=== PATIENT | female | born 1965 | race Caucasian/White ===

== ENCOUNTER 2019-03-19 07:28 | Outpatient (RCR) | payer MEDICARE, MEDICAID, SELFPAY | END 2019-04-14 00:01 | LOC: SPT 07:28 | PROVIDERS: Family Provider Internal Medicine; Visit Provider Neurological Surgery | DX: Z98.1 Arthrodesis status (principal); M54.2 Cervicalgia | CPT/HCPCS: 97110; 97161; 97530 ==

== ENCOUNTER 2019-06-24 07:14 | Inpatient (IN) | payer MEDICARE, MEDICAID, SELFPAY ==
[2019-06-24] VITALS (15 sets, daily range): BP systolic 110–159; BP diastolic 63–101; PULSE 78–107; RESP 15–19; TEMP 36.7–36.9; O2SAT 93–98; BMI 36.8
--- NOTE | 2019-06-24 07:32 | CT_ITS ---
WS: [id number] CT ABDOMEN PELVIS TECHNIQUE: Contrast-enhanced CT of the abdomen and pelvis with coronal and sagittal reformatted image s. CLINICAL INFORMATION: RUQ pain, hx of SBO multiple COMPARISON: January 14, 2015 DLP: 1975.[address] scans at [facility] use at least one of these dose optimization techniques: automat ed exposure control; mA and/or kV adjustment per patient size (includes targeted exams where dose is matched to clinical indication); or iterative reconstruction. FINDINGS: Prior appendectomy and hysterectomy. Prior postoperative changes at the GE junction. Surgical clips i n the left upper abdomen. Mild diffuse fatty infiltration liver. Cholelithiasis. Normal pancreas. Adr enal glands are normal. Normal spleen. Splenic granulomas. Lung bases are well aerated. Normal renal parenchymal enhancement. No hydronephrosis. Right renal parenchymal calculus measuring 15 mm. No obst ructing renal parenchymal or ureteral calculi. Postoperative changes of the sigmoid colon. No abdominal lymphadenopathy. Normal caliber abdominal aorta. Dilated loops of small bowel in the midabdomen with air-fluid levels. Small bowel measures up to 2.5 CM. The terminal ileum appears decompressed. Findings consistent with partial small bowel obstruction . Proximal small bowel is normal in appearance. CT/CT abdomen pelvis w con* [id number] IMPRESSION: 1. Air-fluid levels in the mid small bowel consistent with partial small bowel obstruction. Small bowel loops measure 2.5 cm in maximum dimension. 2. Terminal ileum appears decompressed. Proximal small bowel is decompressed. Persistent air within the colon. 3. Multiple prior abdominal surgeries including GE junction, mid small bowel i n the midabdomen, and prior sigmoid anastomosis. 4. Prior hysterectomy and appendectomy. 5. Nonobstructing right renal parenchymal calculus measuring 16 mm. 6. Diffuse fatty infiltration liver. 7. Cholelithiasis with tiny gallstones
--- NOTE | 2019-06-24 07:34 | W.ED.GENADLT ---
Documented by User: ANDIE Lynn 06/24/19 08:18 HPI - General Adult General: Chief complaint: Abdominal Pain Stated complaint: Abd pain Time Seen by Provider: 06/24/19 07:22 History of Present Illness: HPI narrative: Patient complains of severe abdominal pain especially to the right upper quadrant area for 2 days worse since yesterday afternoon. Has had nausea and vomiting since then. Has a history of small bowel obstructions no calculi has an ileo-anal ostomy. with repeat dilations, 82% stomach gone with gastric sleeve, has had hysteretomy. Patient is diabetic. MD complaint: Abdominal pain Onset (ago): day(s) (2) Location: abdomen Radiation: non-radiation Severity: severe and similar to prior episodes Severity scale (1-10): 9 Quality: sharp Pain Consistency: intermittent and colicky Relieving factors: medication Exacerbating factors: eating Associated symptoms: Reports nausea and vomiting; Deny chest pain, dyspnea, headache(s) or rash Treatments prior to arrival: other (Tried medication and vomited it up) Review of Systems Narrative: History of multiple surgeries gastric bypass fractures renal stones still has gallbladder Const: Denies: chills or body aches Eyes: Denies: change in vision or blurry vision ENMT: Denies: throat pain or nasal congestion Card: Denies: chest pain or shortness of breath on exertion Resp: Denies: shortness of breath, productive cough or non-productive cough GI: Reports: abdominal pain, nausea, vomiting and cramping Musc: Denies: extremity pain Skin/Breast: Denies: rash Neuro: Denies: headache Psych: Denies: anxiety or depression Celestino/Lymph: Denies: easy bruising PFSH ED PFSH: Social History Smoking and tobacco status: never smoked Physical Exam Const: COMMON NORMALS: no apparent distress, average body habitus and oriented x3 HENMT: COMMON NORMALS: normocephalic HEAD & SCALP: normal to inspection and normocephalic FACE & SINUS: normal facial exam Eye: COMMON NORMALS: conjunctivae normal GENERAL EYE: normal appearance of both eyes CONJUNCTIVA: Yes conjunctivae normal Neck/C-Spine: COMMON NORMALS: no JVD Chest: COMMONS NORMALS: inspection of chest normal Resp: COMMON NORMALS: normal respiratory effort and clear to auscultation bilaterally AUSCULTATION: clear to auscultation bilaterally Cardio: COMMON NORMALS: no JVD, regular rate and regular rhythm RATE: regular rate RHYTHM: regular rhythm GI: COMMON NORMALS: normal to inspection, nondistended, normoactive bowel sounds and no hepatosplenomegaly INSPECTION: Yes normal to inspection AUSCULTATION: Yes hypoactive bowel sounds PALPATION: Yes tender Details: RUQ and Yes no hepatosplenomegaly RECTAL EXAM: deferred Extremity: COMMON NORMALS: normal to inspection and full ROM Neuro: COMMON NORMALS: oriented x3 Course Vital Signs: Vital signs: Vital Signs Temperature 98.4 F 06/24/19 07:19 Pulse Rate 107 H 06/24/19 07:19 Respiratory Rate 16 06/24/19 13:42 Blood Pressure 159/101 06/24/19 07:19 Pulse Oximetry 93 06/24/19 13:42 MDM - General Adult Lab Data: Labs: Lab Results 06/24/19 06/24/19 06/24/19 Range/Units 07:30 07:30 07:30 WBC 11.4 H (4.0-10.0) 10^3/ uL RBC 4.32 (4.1-5.3) 10^6/u L Hgb 12.8 (11.5-15.3) g/dL Hct 39.1 (37.0-47.0) % MCV 90.5 (81-99) fL MCH 29.6 (28.0-34.0) pg MCHC 32.7 (30.0-36.0) g/dL RDW 13.0 (12.1-15.1) % Plt Count 393 (130-400) 10^3/c mm MPV 10.3 (7.4-10.4) fL Neut % (Auto) 70.7 % Lymph % (Auto) 22.4 % [place] % (Auto) 5.2 % Eos % (Auto) 1.0 % Baso % (Auto) 0.5 % Neut # (Auto) 8.0 H (1.8-7.7) 10^3/u L Lymph # (Auto) 2.6 (0.8-4.8) 10^3/u L [place] # (Auto) 0.6 (0.2-0.9) 10^3/u L Eos # (Auto) 0.1 (0.0-0.8) 10^3/u L Baso # (Auto) 0.1 (0.0-0.1) 10^3/u L Nucleated RBC % (a uto) 0 % Nucleated RBCs # 0.0 /100WBC Sodium 137 (136-145) mmol/L Potassium 4.2 (3.5-5.1) mmol/L Chloride 98 (98-107) mmol/L Carbon Dioxide 23 (22-29) mmol/L Anion Gap 20.2 H (5-19) BUN 13 (6-20) mg/dL Creatinine 0.9 (0.5-0.9) mg/dL GFR Calculation 65.8 L (90-130) mL/min Glucose 291 H (65-115) mg/dL Calculated Osmolal ity 291 (285-295) mOsm/k g Lactate (0.5-2.2) mmol/L Calcium 10.1 (8.5-10.5) mg/dL Total Bilirubin 1.1 (0.15-1.2) mg/dL AST 21 (0-32) U/L ALT 17 (0-33) U/L Alkaline Phosphata se 74 (35-105) IU/L Total Protein 8.6 (6.6-8.7) g/dL Albumin 4.3 (3.5-5.2) g/dL Globulin 4.3 (1.3-4.6) g/dL Lipase 22 (13-60) U/L Urine Color Yellow (Yellow) Urine Appearance Sl hazy (CLEAR) Urine pH 5.0 (5-7) Ur Specific Gravit y 1.025 (1.005-1.030) Urine Protein 2+ H (Negative) Urine Glucose (UA) 2+ (Normal) Urine Ketones 1+ H (Negative) Urine Blood Neg (Negative) Urine Nitrate Negative (Negative) Urine Bilirubin Neg (NEGATIVE) Urine Urobilinogen Norm (Negative) mg/dL Ur Leukocyte Shannon ase Negative (Negative) Urine RBC None (0-2) /hpf Urine WBC Rare (0-5) /hpf Ur Squamous Epith Cells 15-25 H (0-5) Amorphous Sediment 2+ Urine Bacteria 2+ H (NONE) Urine Mucus 1+ 03/20 Range/Units 07:40 WBC (4.0-10.0) 10^3/ uL RBC (4.1-5.3) 10^6/u L Hgb (11.5-15.3) g/dL Hct (37.0-47.0) % MCV (81-99) fL MCH (28.0-34.0) pg MCHC (30.0-36.0) g/dL RDW (12.1-15.1) % Plt Count (130-400) 10^3/c mm MPV (7.4-10.4) fL Neut % (Auto) % Lymph % (Auto) % [place] % (Auto) % Eos % (Auto) % Baso % (Auto) % Neut # (Auto) (1.8-7.7) 10^3/u L Lymph # (Auto) (0.8-4.8) 10^3/u L [place] # (Auto) (0.2-0.9) 10^3/u L Eos # (Auto) (0.0-0.8) 10^3/u L Baso # (Auto) (0.0-0.1) 10^3/u L Nucleated RBC % (a uto) % Nucleated RBCs # /100WBC Sodium (136-145) mmol/L Potassium (3.5-5.1) mmol/L Chloride (98-107) mmol/L Carbon Dioxide (22-29) mmol/L Anion Gap (5-19) BUN (6-20) mg/dL Creatinine (0.5-0.9) mg/dL GFR Calculation (90-130) mL/min Glucose (65-115) mg/dL Calculated Osmolal ity (285-295) mOsm/k g Lactate 3.0 H (0.5-2.2) mmol/L Calcium (8.5-10.5) mg/dL Total Bilirubin (0.15-1.2) mg/dL AST (0-32) U/L ALT (0-33) U/L Alkaline Phosphata se (35-105) IU/L Total Protein (6.6-8.7) g/dL Albumin (3.5-5.2) g/dL Globulin (1.3-4.6) g/dL Lipase (13-60) U/L Urine Color (Yellow) Urine Appearance (CLEAR) Urine pH (5-7) Ur Specific Gravit y (1.005-1.030) Urine Protein (Negative) Urine Glucose (UA) (Normal) Urine Ketones (Negative) Urine Blood (Negative) Urine Nitrate (Negative) Urine Bilirubin (NEGATIVE) Urine Urobilinogen (Negative) mg/dL Ur Leukocyte Shannon ase (Negative) Urine RBC (0-2) /hpf Urine WBC (0-5) /hpf Ur Squamous Epith Cells (0-5) Amorphous Sediment Urine Bacteria (NONE) Urine Mucus Discharge Plan Discharge Patient Disposition: Admitted As Inpatient Clinical Impression: Small bowel obstruction Condition: Stable Sign Out Sign Out Data: Patient Sign Out occurred on 06/24/19 at 11:11. Patient's care was discussed, and care was transferred from to Mariah Tirado MD. Coding Level of Care Code ED Administration Assistant for Chg Fwd Exam Comprehensive Documented by User: Mariah Tirado MD 06/24/19 14:18 HPI - General Adult General: Chief complaint: Abdominal Pain Stated complaint: Abd pain Time Seen by Provider: 06/24/19 07:22 [facility] ED PFSH: Social History Smoking and tobacco status: never smoked Course Vital Signs: Vital signs: Vital Signs Temperature 98.4 F 06/24/19 07:19 Pulse Rate 107 H 06/24/19 07:19 Respiratory Rate 16 06/24/19 13:42 Blood Pressure 159/101 06/24/19 07:19 Pulse Oximetry 93 06/24/19 13:42 MDM - General Adult MDM Narrative: Medical decision making narrative: 1109 Dr. Reddy contacted she will be down to the ER shortly, she is with the patient in the ICU currently. Will discuss with her when she arrives. Patient confirmed to me that she wanted to be admitted here. She has not been admitted since 2014 and that was here to the hospitalist service. Lab Data: Attestation: I reviewed the patient's lab results. Labs: Lab Results 03/11/20 03/11/20 03/11/20 Range/Units 07:30 07:30 07:30 WBC 11.4 H (4.0-10.0) 10^3/ uL RBC 4.32 (4.1-5.3) 10^6/u L Hgb 12.8 (11.5-15.3) g/dL Hct 39.1 (37.0-47.0) % MCV 90.5 (81-99) fL MCH 29.6 (28.0-34.0) pg MCHC 32.7 (30.0-36.0) g/dL RDW 13.0 (12.1-15.1) % Plt Count 393 (130-400) 10^3/c mm MPV 10.3 (7.4-10.4) fL Neut % (Auto) 70.7 % Lymph % (Auto) 22.4 % [place] % (Auto) 5.2 % Eos % (Auto) 1.0 % Baso % (Auto) 0.5 % Neut # (Auto) 8.0 H (1.8-7.7) 10^3/u L Lymph # (Auto) 2.6 (0.8-4.8) 10^3/u L [place] # (Auto) 0.6 (0.2-0.9) 10^3/u L Eos # (Auto) 0.1 (0.0-0.8) 10^3/u L Baso # (Auto) 0.1 (0.0-0.1) 10^3/u L Nucleated RBC % (a uto) 0 % Nucleated RBCs # 0.0 /100WBC Sodium 137 (136-145) mmol/L Potassium 4.2 (3.5-5.1) mmol/L Chloride 98 (98-107) mmol/L Carbon Dioxide 23 (22-29) mmol/L Anion Gap 20.2 H (5-19) BUN 13 (6-20) mg/dL Creatinine 0.9 (0.5-0.9) mg/dL GFR Calculation 65.8 L (90-130) mL/min Glucose 291 H (65-115) mg/dL Calculated Osmolal ity 291 (285-295) mOsm/k g Lactate (0.5-2.2) mmol/L Calcium 10.1 (8.5-10.5) mg/dL Total Bilirubin 1.1 (0.15-1.2) mg/dL AST 21 (0-32) U/L ALT 17 (0-33) U/L Alkaline Phosphata se 74 (35-105) IU/L Total Protein 8.6 (6.6-8.7) g/dL Albumin 4.3 (3.5-5.2) g/dL Globulin 4.3 (1.3-4.6) g/dL Lipase 22 (13-60) U/L Urine Color Yellow (Yellow) Urine Appearance Sl hazy (CLEAR) Urine pH 5.0 (5-7) Ur Specific Gravit y 1.025 (1.005-1.030) Urine Protein 2+ H (Negative) Urine Glucose (UA) 2+ (Normal) Urine Ketones 1+ H (Negative) Urine Blood Neg (Negative) Urine Nitrate Negative (Negative) Urine Bilirubin Neg (NEGATIVE) Urine Urobilinogen Norm (Negative) mg/dL Ur Leukocyte Shannon ase Negative (Negative) Urine RBC None (0-2) /hpf Urine WBC Rare (0-5) /hpf Ur Squamous Epith Cells 15-25 H (0-5) Amorphous Sediment 2+ Urine Bacteria 2+ H (NONE) Urine Mucus 1+ /03/04 Range/Units 07:40 WBC (4.0-10.0) 10^3/ uL RBC (4.1-5.3) 10^6/u L Hgb (11.5-15.3) g/dL Hct (37.0-47.0) % MCV (81-99) fL MCH (28.0-34.0) pg MCHC (30.0-36.0) g/dL RDW (12.1-15.1) % Plt Count (130-400) 10^3/c mm MPV (7.4-10.4) fL Neut % (Auto) % Lymph % (Auto) % [place] % (Auto) % Eos % (Auto) % Baso % (Auto) % Neut # (Auto) (1.8-7.7) 10^3/u L Lymph # (Auto) (0.8-4.8) 10^3/u L [place] # (Auto) (0.2-0.9) 10^3/u L Eos # (Auto) (0.0-0.8) 10^3/u L Baso # (Auto) (0.0-0.1) 10^3/u L Nucleated RBC % (a uto) % Nucleated RBCs # /100WBC Sodium (136-145) mmol/L Potassium (3.5-5.1) mmol/L Chloride (98-107) mmol/L Carbon Dioxide (22-29) mmol/L Anion Gap (5-19) BUN (6-20) mg/dL Creatinine (0.5-0.9) mg/dL GFR Calculation (90-130) mL/min Glucose (65-115) mg/dL Calculated Osmolal ity (285-295) mOsm/k g Lactate 3.0 H (0.5-2.2) mmol/L Calcium (8.5-10.5) mg/dL Total Bilirubin (0.15-1.2) mg/dL AST (0-32) U/L ALT (0-33) U/L Alkaline Phosphata se (35-105) IU/L Total Protein (6.6-8.7) g/dL Albumin (3.5-5.2) g/dL Globulin (1.3-4.6) g/dL Lipase (13-60) U/L Urine Color (Yellow) Urine Appearance (CLEAR) Urine pH (5-7) Ur Specific Gravit y (1.005-1.030) Urine Protein (Negative) Urine Glucose (UA) (Normal) Urine Ketones (Negative) Urine Blood (Negative) Urine Nitrate (Negative) Urine Bilirubin (NEGATIVE) Urine Urobilinogen (Negative) mg/dL Ur Leukocyte Shannon ase (Negative) Urine RBC (0-2) /hpf Urine WBC (0-5) /hpf Ur Squamous Epith Cells (0-5) Amorphous Sediment Urine Bacteria (NONE) Urine Mucus Discharge Plan Discharge Patient Disposition: Admitted As Inpatient Clinical Impression: Small bowel obstruction Condition: Stable Sign Out Sign Out Data: Patient Sign Out occurred on 06/24/19 at 11:11. Patient's care was discussed, and care was transferred from to Mariah Tirado MD. Coding Level of Care Code ED Administration Assistant for [facility] Fwd Exam Comprehensive
[2019-06-24] MEDS: morphine 4 mg/mL SDV 1 mL IVP (07:40)
[2019-06-24] MEDS: ondansetron 2 mg/ML SDV 2 mL 8 MG IVP (07:40)
[2019-06-24] MEDS: sodium chloride 0.9% 1,000 ML 999 ML IV (07:41)
[2019-06-24 07:46] LABS: Basophils # 0.1 10^3/uL (0.0-0.1); Basophils % 0.5 %; Eosinophils # 0.1 10^3/uL (0.0-0.8); Hematocrit 39.1 % (37.0-47.0); Hemoglobin 12.8 g/dL (11.5-15.3); Lymphocytes # 2.6 10^3/uL (0.8-4.8); Lymphocytes % 22.4 %; Mean Corpuscular HGB Conc 32.7 g/dL (30.0-36.0); Mean Corpuscular Hemoglobin 29.6 pg (28.0-34.0); Mean Corpuscular Volume 90.5 fL (81-99); Mean Platelet Volume 10.3 fL (7.4-10.4); Monocytes # 0.6 10^3/uL (0.2-0.9); Monocytes % 5.2 %; Neutrophils % 70.7 %; Nucleated Red Blood Cells % 0 %; Platelet Count 393 10^3/cmm (130-400); Red Blood Count 4.32 10^6/uL (4.1-5.3); White Blood Count 11.4 10^3/uL (4.0-10.0)
[2019-06-24 07:50] LABS: Add Urine Microscopic? YES; Bilirubin Urine Neg (NEGATIVE); Blood Urine Neg (Negative); Glucose Urine UA 2+ (Normal); Ketones Urine 1+ (Negative); Leukocyte Esterase Urine Negative (Negative); Nitrate Urine Negative (Negative); Protein Urine 2+ (Negative); Specific Gravity, Urine 1.025 (1.005-1.030); Urine Appearance SL Hazy (CLEAR); Urine Color Yellow (Yellow); Urobilinogen Urine Norm (Negative)
[2019-06-24 08:01] LABS: Albumin Level 4.3 g/dL (3.5-5.2); Alkaline Phosphatase 74 IU/L (35-105); Anion Gap 20.2 (5-19); Aspartate Amino Transferase 21 U/L (0-32); Blood Urea Nitrogen 13 mg/dL (6-20); Calcium 10.1 mg/dL (8.5-10.5); Carbon Dioxide 23 mmol/L (22-29); Chloride 98 mmol/L (98-107); Globulin 4.3 g/dL (1.3-4.6); Glomerular Filtration Rate 65.8 mL/min (90-130); Glucose 291 mg/dL (65-115); Lipase 22 U/L (13-60); Osmolality Calculated 291 mOsm/kg (285-295); Potassium 4.2 mmol/L (3.5-5.1); Sodium 137 mmol/L (136-145); Total Bilirubin 1.1 mg/dL (0.15-1.2); Total Protein 8.6 g/dL (6.6-8.7)
[2019-06-24 08:12] LABS: Mucus Urine 1+; Squamous Epithelial Cell Urine 15-25 (0-5); WBC Urine RARE /hpf (0-5)
[2019-06-24 08:13] LABS: Add Urine Culture? No; Alanine Aminotransferase 17 U/L (0-33); Amorphous Sediment Urine 2+; Bacteria Urine 2+
[2019-06-24] MEDS: HYDROmorphone 1 mg/mL INJ 1 mL 0.5 MG IVP ×3 (08:21→20:48)
[2019-06-24] MEDS: iohexol 300 mg/mL 100 mL Btl IV (08:54)
[2019-06-24] MEDS: HYDROmorphone 1 mg/mL INJ 1 mL IVP (12:29)
[2019-06-24] MEDS: morphine 4 mg/mL SDV 1 mL 2 MG IVP ×2 (15:14→18:21)
--- NOTE | 2019-06-24 16:13 | PM.CONSULT ---
Providers/Reason For Consult Consulting Physican/Specialty*: Chemo Lindquist MD General surgery Reason for Consult*: Partial small bowel obstruction Attending Physician: Mildred Reddy DO Primary Care Provider: Linda Castro MD History of Present Illness History of Present Illness Marie Damon is a 54 year old female with extensive surgical history including sleeve gastrectomy for history of gastroparesis and history of ulcerative colitis that required total colectomy with ileoanal anastomosis in the form of ileal pouch that was recently dilated at [facility] about couple of weeks ago for a stricture also patient reports that she had some sort of pelvic reconstruction surgery, patient comes to the emergency department with worsening abdominal pain mostly on the right side of the abdomen and she believes that she has repetitively recurrent partial small bowel obstruction that usually responds with conservative management and sometimes even she does not come to the hospital for that, but this time she seems to be having worsening symptoms and she did have nausea and vomiting and last time she had passed a little gas early this afternoon, usually patient does have 10-12 bowel movement due to the nature of her new surgical anatomy. CT scan findings 1. Air-fluid levels in the mid small bowel consistent with partial small bowel obstruction. Small bowel loops measure 2.5 cm in maximum dimension. 2. Terminal ileum appears decompressed. Proximal small bowel is decompressed. Persistent air within the colon. 3. Multiple prior abdominal surgeries including GE junction, mid small bowel in the midabdomen, and prior sigmoid anastomosis. 4. Prior hysterectomy and appendectomy. 5. Nonobstructing right renal parenchymal calculus measuring 16 mm. 6. Diffuse fatty infiltration liver. 7. Cholelithiasis with tiny gallstones Apparently the patient did refuse NG tube placement by the hospitalist service and she is refusing to have any potential surgical intervention if it gets to this point in the hospital here and she would prefer to be transferred to her operating surgeon in [place] yet she elected to be admitted for conservative measures if that would help her. General surgery was consulted for further evaluation Review of Systems Const: Denies: fever, chills, body aches or malaise Card: Denies: chest pain Resp: Denies: shortness of breath GI: Reports: abdominal pain, nausea and vomiting; Denies: difficulty swallowing, diarrhea, constipation or blood in stool Neuro: Denies: headache Psych: Denies: anxiety or depression Meds/Allergies Home Medications and Allergies Home Medications Medication Instructions Recorded Confirmed Type Bifidobacterium infantis [Align] 10.5 mg PO BEDTIME 06/24/19 06/24/19 History albuterol sulfate [Ventolin HFA] 2 inh INHALATION BID PRN 06/24/19 06/24/19 History allopurinol 300 mg PO DAILY 06/24/19 06/24/19 History atorvastatin 20 mg PO DAILY 06/24/19 06/24/19 History biotin 1,000 mcg PO DAILY 06/24/19 06/24/19 History budesonide-formoterol [Symbicort] 2 puff INHALATION BID 06/24/19 06/24/19 History carica papaya [Papaya Enzyme] 1 tab PO TID PRN 06/24/19 06/24/19 History cyanocobalamin (vitamin B-12) 500 mcg PO DAILY 06/24/19 06/24/19 History diphenoxylate-atropine [Lomotil] 2 tab PO TID 06/24/19 06/24/19 History duloxetine 60 mg PO BEDTIME 06/24/19 06/24/19 History estradiol [Vivelle-Dot] See Rx Instructions .ROUTE .COMPLEX 06/24/19 06/24/19 History exenatide microspheres [Bydureon] 2 mg SUBCUT Q7D 06/24/19 06/24/19 History furosemide [Lasix] 20 mg PO DAILY 06/24/19 06/24/19 History hydrocodone-acetaminophen 1 tab PO Q6H PRN 06/24/19 06/24/19 History levothyroxine See Rx Instructions .ROUTE .COMPLEX 06/24/19 06/24/19 History liothyronine 5 mcg PO DAILY 06/24/19 06/24/19 History lorazepam 0.5 mg PO TID PRN 06/24/19 06/24/19 History magnesium oxide 250 mg PO BID 06/24/19 06/24/19 History meloxicam 15 mg PO DAILY 06/24/19 06/24/19 History methocarbamol See Rx Instructions .ROUTE .COMPLEX 06/24/19 06/24/19 History metronidazole [Flagyl] 500 mg PO EVERY OTHER DAY 06/24/19 06/24/19 History montelukast 10 mg PO BEDTIME 06/24/19 06/24/19 History multivitamin 1 tab PO DAILY 06/24/19 06/24/19 History pantoprazole 40 mg PO BID 06/24/19 06/24/19 History potassium iodide 99 mg PO DAILY 06/24/19 06/24/19 History pseudoephedrine HCl [Sudafed] 30 mg PO Q6H PRN 06/24/19 06/24/19 History ropinirole 2.5 mg PO BEDTIME 06/24/19 06/24/19 History Allergies Allergy/AdvReac Type Severity Reaction Status Date / Time amoxicillin Allergy ALGY-Swell Verified 06/24/19 18:15 Lip/Tongue/Throat aripiprazole [From Abilify] Allergy ADR-Shakine Verified 06/24/19 18:15 ss clindamycin Allergy ALGY-Swell Verified 06/24/19 18:15 Lip/Tongue/Throat droperidol Allergy ADR-Anxiety Verified 06/24/19 18:15 pramipexole [From Mirapex] Allergy ADR-Itching Verified 06/24/19 18:15 quetiapine [From Seroquel] Allergy ADR-Anxiety Verified 06/24/19 18:15 sulfamethoxazole Allergy ADR-Swelling Verified 06/24/19 18:15 [From Bactrim] of the Eye sumatriptan [From Imitrex] Allergy ADR-Depress Verified 06/24/19 18:15 ion tramadol [From Ultram] Allergy ADR-Itching Verified 06/24/19 18:15 trimethoprim [From Bactrim] Allergy ADR-Swelling Verified 06/24/19 18:15 of the Eye Current Medications Current Medications Generic Name Dose Route Start Last Admin Trade Name Freq PRN Reason Stop Dose Admin Morphine Sulfate 2 mg 06/24/19 14:58 06/24/19 15:14 Morphine IVP 2 mg Q4H PRN Administration SEVERE PAIN PFSH Acute PFSH: Medical History Cholelithiasis COPD (chronic obstructive pulmonary disease) Diabetes mellitus type 2, insulin dependent Fibromyalgia GERD (gastroesophageal reflux disease) Headache, migraine History of flexible sigmoidoscopy Hypertension Ulcerative colitis Surgical History History of closure of ileostomy History of colectomy History of fasciotomy History of nasal septoplasty History of partial gastrectomy History of repair of rotator cuff History of skin graft History of thyroidectomy Family History Mother CAD (coronary artery disease) Stroke Diabetes Social History Smoking and tobacco status: never smoked Alcohol intake: never Substance/Drug Use: never Vitals/I&O/Wt Last Vital Signs Temp 98.2 F 06/24/19 15:00 Pulse 88 06/24/19 15:00 Resp 16 06/24/19 15:14 BP 130/82 06/24/19 15:00 Pulse Ox 98 06/24/19 15:14 06/24/19 06/24/19 06/24/19 06:59 14:59 22:59 Intake Total 1000 / 1000 Balance 1000 / 1000 Weight last 48 hrs Weight 242 lb Physical Exam Const: COMMON NORMALS: no apparent distress and oriented x3 GENERAL APPEARANCE: cooperative ORIENTATION/CONSCIOUSNESS: Yes awake, Yes oriented to person, Yes oriented to place and Yes oriented to time HENMT: COMMON NORMALS: normocephalic HEAD & SCALP: normocephalic Eye: COMMON NORMALS: PERRL and no scleral icterus PUPIL: Yes PERRL Lymph: LYMPHATIC: no lymphadenopathy noted Chest: COMMONS NORMALS: inspection of chest normal Resp: COMMON NORMALS: normal respiratory effort and clear to auscultation bilaterally AUSCULTATION: clear to auscultation bilaterally Cardio: COMMON NORMALS: S1 normal heart sound and S2 normal heart sound; negative for no murmurs HEART SOUNDS: S1 normal and S2 normal GI: COMMON NORMALS: soft to palpation; negative for no hepatosplenomegaly INSPECTION: Yes normal to inspection PALPATION: Yes soft, No firm, Yes tender (Right side of the Abdomen ), No guarding, No rigid and No no hepatosplenomegaly Neuro: COMMON NORMALS: oriented x3 SENSORIUM/ORIENTATION: Yes oriented to person, Yes oriented to place and Yes oriented to time Skin: COMMON NORMALS: no rashes or lesions noted GENERAL SKIN EXAM: no rashes or lesions noted A&P Assessment and plan (1) Small bowel obstruction: After thorough history taking physical examination and reviewing the chart and images with my personal interpretation N.p.o. with IV fluids for resuscitation Repeated physical examination Strict I's and Os. I am concerned about the patient's extensive surgical history and the potential need down the road for a Pouchoscope/pouchgram to assess her ileal to anal anastomosis J-pouch and may need to repeat the dilation, likely the patient would benefit to be in a place where her index colorectal surgeon to be available for potential intervention, there is so much can be done at this point here except for conservative measures that was already initiated by my partner hospitalist Dr. Reddy, I would highly recommend that if the patient did not respond earlier to these measures,she should be at a place for her colorectal service available particularly that the patient is the one requesting that that. Thank you for consulting general surgery to participate taking care Ms. Damon Status: Acute Code(s): K56.609 - Unspecified intestinal obstruction, unspecified as to partial versus complete obstruction Consult Attestations Medical Necessity Statement: Medical necessity care is expected to cross 2 midnights Time Spent in Patient Care: 16 - 35 minutes (>than 50% of time spent in counselling and/or direct pt care on unit). Coding Level of Care Code Acute Historical Manuscripts Curator for Chg Fwd Exam Comprehensive Diagnoses Small bowel obstruction K56.609
--- NOTE | 2019-06-24 16:17 | P.HP_ITS ---
Providers/Chief Complaint Admitting Physician: Mildred Reddy DO Primary Care Provider: Linda Castro MD Chief Complaint: Abd pain History of Present Illness Marie Damon is a 54 year old female that presented to the emergency department today for abdominal pain and nausea. She reported that her symptoms started on Saturday. She stated that she ate sausage and sauerkraut then began having symptoms several hours after. She stated that she has not had a bowel movement since Saturday and she typically has 10-12 bowel movements per day. She stated that she has been having nausea and vomiting that began last night at 11 PM and is continued to have episodes today therefore came into the ER for further evaluation and treatment. She reports multiple abdominal surgeries with complete colectomy due to severe ulcerative colitis in the past, reports having recent flex sig with dilation of anastomosis, had bright red blood per rectum shortly after this and this has since discontinued. She was then noted to have concern for pouchitis and started on ciprofloxacin. She is completed this course of antibiotics. Patient denies any bright red blood per rectum, denies any black or tarry like stools. She stated that her surgeon is in [place] at [facility], Dr. Munroe, colorectal surgeon. She denies any fevers or chills at home. Reported some occasional cough. Patient was seen and evaluated in the emergency department noted to have concern for partial small bowel obstruction. She was recommended to have NG tube placed while in the emergency department she declined. Review of Systems Const: Denies: fever or chills Eyes: Denies: change in vision ENMT: Denies: nasal congestion Card: Denies: chest pain, palpitations or edema Resp: Reports: non-productive cough; Denies: shortness of breath, productive cough or coughing up blood GI: Reports: abdominal pain, nausea and vomiting; Denies: diarrhea, constipation, blood in stool or black tarry stool : Denies: painful urination or blood in urine Musc: Denies: extremity pain or muscle cramps Skin/Breast: Denies: rash or new lesion Neuro: Denies: headache or dizziness Psych: Denies: anxiety or depression Endo: Denies: excessive urination or hot flashes Celestino/Lymph: Denies: easy bruising or easy bleeding Medications/Allergies Home Medications Medication Instructions Recorded Confirmed Last Taken Type Bifidobacterium infantis [Align] 10.5 mg PO BEDTIME 03/11/20 03/11/20 03/10/20 History albuterol sulfate [Ventolin HFA] 2 inh INHALATION BID PRN 06/24/19 06/24/19 06/23/19 History allopurinol 300 mg PO DAILY 06/24/19 06/24/19 06/23/19 History atorvastatin 20 mg PO DAILY 06/24/19 06/24/19 06/23/19 History biotin 1,000 mcg PO DAILY 06/24/19 06/24/19 06/23/19 History budesonide-formoterol [Symbicort] 2 puff INHALATION BID 06/24/19 06/24/19 06/23/19 History carica papaya [Papaya Enzyme] 1 tab PO TID PRN 06/24/19 06/24/19 06/23/19 History cyanocobalamin (vitamin B-12) 500 mcg PO DAILY 06/24/19 06/24/19 06/23/19 History diphenoxylate-atropine [Lomotil] 2 tab PO TID 06/24/19 06/24/19 Unknown History duloxetine 60 mg PO BEDTIME 06/24/19 06/24/19 06/23/19 History estradiol [Vivelle-Dot] See Rx Instructions .ROUTE .COMPLEX 06/24/19 06/24/19 06/24/19 History exenatide microspheres [Bydureon] 2 mg SUBCUT Q7D 06/24/19 06/24/19 06/21/19 History furosemide [Lasix] 20 mg PO DAILY 06/24/19 06/24/19 06/23/19 History hydrocodone-acetaminophen 1 tab PO Q6H PRN 06/24/19 06/24/19 06/23/19 History levothyroxine See Rx Instructions .ROUTE .COMPLEX 06/24/19 06/24/19 06/23/19 History liothyronine 5 mcg PO DAILY 06/24/19 06/24/19 06/23/19 History lorazepam 0.5 mg PO TID PRN 06/24/19 06/24/19 Unknown History magnesium oxide 250 mg PO BID 06/24/19 06/24/19 06/23/19 History meloxicam 15 mg PO DAILY 06/24/19 06/24/19 06/23/19 History methocarbamol See Rx Instructions .ROUTE .COMPLEX 06/24/19 06/24/19 Unknown History metronidazole [Flagyl] 500 mg PO EVERY OTHER DAY 06/24/19 06/24/19 Unknown History montelukast 10 mg PO BEDTIME 06/24/19 06/24/19 06/23/19 History multivitamin 1 tab PO DAILY 06/24/19 06/24/19 06/23/19 History pantoprazole 40 mg PO BID 06/24/19 06/24/19 06/23/19 History potassium iodide 99 mg PO DAILY 06/24/19 06/24/19 06/23/19 History pseudoephedrine HCl [Sudafed] 30 mg PO Q6H PRN 06/24/19 06/24/19 Unknown History ropinirole 2.5 mg PO BEDTIME 06/24/19 06/24/19 06/23/19 History Allergies Allergy/AdvReac Type Severity Reaction Status Date / Time amoxicillin Allergy ALGY-Swell Verified 06/24/19 07:46 Lip/Tongue/Throat aripiprazole [From Abilify] Allergy ADR-Shakine Verified 06/24/19 07:46 ss clindamycin Allergy ALGY-Swell Verified 06/24/19 07:46 Lip/Tongue/Throat droperidol Allergy ADR-Anxiety Verified 06/24/19 07:51 pramipexole [From Mirapex] Allergy ADR-Itching Verified 06/24/19 07:51 quetiapine [From Seroquel] Allergy ADR-Anxiety Verified 06/24/19 07:51 sulfamethoxazole Allergy ADR-Swelling Verified 06/24/19 07:46 [From Bactrim] of the Eye sumatriptan [From Imitrex] Allergy ADR-Depress Verified 06/24/19 07:51 ion tramadol [From Ultram] Allergy ADR-Itching Verified 06/24/19 07:51 trimethoprim [From Bactrim] Allergy ADR-Swelling Verified 06/24/19 07:46 of the Eye PFSH Acute PFSH: Medical History (Updated 06/24/19 @ 16:25 by Mildred Reddy DO) Cholelithiasis COPD (chronic obstructive pulmonary disease) Diabetes mellitus type 2, insulin dependent Fibromyalgia GERD (gastroesophageal reflux disease) Headache, migraine History of flexible sigmoidoscopy Hypertension Ulcerative colitis Surgical History (Updated 06/24/19 @ 16:25 by Mildred Reddy DO) History of closure of ileostomy History of colectomy History of fasciotomy History of nasal septoplasty History of partial gastrectomy History of repair of rotator cuff History of skin graft History of thyroidectomy Family History (Updated 06/24/19 @ 16:25 by Mildred Reddy DO) Mother CAD (coronary artery disease) Stroke Diabetes Social History (Updated 06/24/19 @ 16:25 by Mildred Reddy DO) Smoking and tobacco status: never smoked Alcohol intake: never Substance/Drug Use: never Vitals/I&O/Wt Last Vital Signs Temp 98.2 F 06/24/19 15:00 Pulse 88 06/24/19 15:00 Resp 16 06/24/19 15:14 BP 130/82 06/24/19 15:00 Pulse Ox 98 06/24/19 15:14 06/24/19 06/24/19 06/24/19 06:59 14:59 22:59 Intake Total 1000 / 1000 Balance 1000 / 1000 Weight last 48 hrs Weight 109.769 kg Physical Exam Const: COMMON NORMALS: oriented x3 and alert GENERAL APPEARANCE: cooperative ORIENTATION/CONSCIOUSNESS: Yes awake, Yes oriented to person, Yes oriented to place and Yes oriented to time HENMT: COMMON NORMALS: normocephalic and head/scalp atraumatic HEAD & SCALP: normocephalic and atraumatic Eye: COMMON NORMALS: PERRL PUPIL: Yes PERRL Neck/C-Spine: COMMON NORMALS: supple GENERAL: Yes normal visual inspection Resp: COMMON NORMALS: normal respiratory effort and clear to auscultation bilaterally EFFORT & INSPECTION: Yes able to speak in complete sentences AUSCULTATION: clear to auscultation bilaterally and no rhonchi OTHER: Faint expiratory wheezing bilaterally Cardio: COMMON NORMALS: regular rate, regular rhythm and no murmurs RATE: r egular rate RHYTHM: regular rhythm GI: PALPATION: Yes soft OTHER: Soft, tenderness to palpation diffusely over the anterior abdomen, normal bowel sounds. Prior surgical incisions over the anterior abdominal wall, well-healed : COMMON NORMALS: Yes no CVA tenderness BLADDER/KIDNEY EXAM: Yes no CVA tenderness Back/Pelvis: COMMON NORMALS: no CVA tenderness Extremity: COMMON NORMALS: no clubbing, cyanosis or edema and no calf tenderness Neuro: COMMON NORMALS: oriented x3, CN's II-XII intact bilaterally, moves all extremities and no focal motor deficits SENSORIUM/ORIENTATION: Yes alert, Yes oriented to person, Yes oriented to place and Yes oriented to time SPEECH: speech normal Psych: COMMON NORMALS: mental status grossly normal and cooperative Skin: COMMON NORMALS: no rashes or lesions noted GENERAL SKIN EXAM: no rashes or lesions noted Data : 06/24/19 07:30 06/24/19 07:30 CT Abd/Pel: I personally reviewed and interpreted this imaging study as follows: Radiologist's impression: IMPRESSION: 1. Air-fluid levels in the mid small bowel consistent with partial small bowel obstruction. Small bowel loops measure 2.5 cm in maximum dimension. 2. Terminal ileum appears decompressed. Proximal small bowel is decompressed. Persistent air within the colon. 3. Multiple prior abdominal surgeries including GE junction, mid small bowel in the midabdomen, and prior sigmoid anastomosis. 4. Prior hysterectomy and appendectomy. 5. Nonobstructing right renal parenchymal calculus measuring 16 mm. 6. Diffuse fatty infiltration liver. 7. Cholelithiasis with tiny gallstones A&P Assessment and plan (1) Small bowel obstruction: Partial small bowel obstruction on CT scan Discussed with general surgeon due to patient's multiple surgical interventions in the past and recurrent small bowel obstruction. Patient refusing NG tube due to history of sleeve gastrostomy Appreciate consultation by Dr. Lindquist We will continue with conservative management, IV fluids and bowel rest Patient understands that if she requires any surgical intervention she would want to be transferred to her primary colorectal surgeon in [place]. 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) use of insulin (3) Cholelithiasis: Incidental finding on CT scan, patient does not have any significant right upper quadrant pain Status: Acute Code(s): K80.20 - Calculus of gallbladder without cholecystitis without obstruction Additional A&P Information Chronic diarrhea: Without any current stool output as above Hypertension: Not currently on any blood pressure medications at home COPD: Without acute exacerbation Fibromyalgia: Continue home medications GERD: Continue PPI twice daily Depression/anxiety: Continue home medication of duloxetine, Ativan Hypothyroidism: Continue home levothyroxine Fatty liver disease Ulcerative colitis Migraine headaches DVT prophylaxis: Lovenox Diet: N.p.o. CODE STATUS: Full code Attestations Medical Necessity Statement*: Hospitalization due to partial small bowel obstruction with multiple surgeries in the past and recurrent small bowel obstructions. Expected stay greater than 2 midnights Coding Level of Care Code Acute Paralegal Specialist for g Fwd Exam Comprehensive Diagnoses Small bowel obstruction K56.609 Diabetes mellitus type 2, insulin dependent E11.9; Z79.4 Cholelithiasis K80.20
[2019-06-24] MEDS: pantoprazole DR 40 mg Tablet PO (17:09)
[2019-06-24] MEDS: enoxaparin 40 mg/0.4 mL Syringe SUBCUT (17:09)
[2019-06-24] MEDS: sodium chloride 0.9% 1,000 ML 75 ML IV (17:09)
[2019-06-24 17:56] LABS: Glucose Point of Care 168 mg/dL (70-110)
[2019-06-24] MEDS: ondansetron 2 mg/ML SDV 2 mL 4 MG IVP (20:48)
[2019-06-24 21:06] LABS: Glucose Point of Care 151 mg/dL (70-110)
[2019-06-24] MEDS: montelukast sodium 10 mg Tablet PO (21:41)
[2019-06-24] MEDS: ropinirole 1 mg Tablet 2.5 MG PO (21:42)
[2019-06-24] MEDS: duloxetine 60 mg Capsule PO (21:42)
[2019-06-25] VITALS (8 sets, daily range): BP systolic 114–126; BP diastolic 66–81; PULSE 80–109; RESP 15–20; TEMP 36.9–37.3; O2SAT 91–96
[2019-06-25] MEDS: HYDROmorphone 1 mg/mL INJ 1 mL 0.5 MG IVP ×2 (00:31→04:34)
[2019-06-25] MEDS: acetaminophen 325 mg Tablet 650 MG PO (03:44)
[2019-06-25] MEDS: ondansetron 2 mg/ML SDV 2 mL 4 MG IVP (04:34)
--- NOTE | 2019-06-25 05:39 | PC.NURSE ---
SHIFT SUMMARY Has not slept much tonight. Has had c/o abd pain and cramping with IV Dilaudid and Zofran given as needed. Received order at start of shift to change pain med to Dilaudid due to poor pain control with Morphine. Also had c/o Morphine giving her a headache. Has started having watery to loose [place] green colored BM's and passing alot of gas through night. Abdomen feels bloated and has tenderness dania to right side. Ambulated in tripathi several times tonight. IV fluids infusing at 75ml/hr rate. Remains NPO
--- NOTE | 2019-06-25 06:00 | XR_ITS ---
WS: [id number] KUB, 06/25/2019 Clinical Data: pSBO Comparison: KUB, 03/18/2019. Findings: There is a 1.8 cm calcification overlying the right kidney with little change from before. There are clips to the right of the L2 vertebral body and also in the left upper quadrant. The stomach, small bowel and colon show no dilatation. There is a moderate amount of fecal material i n the descending colon. No abnormal intra-abdominal masses are seen. XR/XR KUB portable [id number] Impression: 1. No change in probable right renal calculus. 2. Moderate amount of fecal material in the colon.
[2019-06-25] MEDS: sodium chloride 0.9% 1,000 ML 75 ML IV (06:20)
[2019-06-25 06:24] LABS: Basophils % 0.3 %; Eosinophils % 0.4 %; Hematocrit 33.9 % (37.0-47.0); Hemoglobin 10.9 g/dL (11.5-15.3); Lymphocytes # 1.1 10^3/uL (0.8-4.8); Lymphocytes % 11.5 %; Mean Corpuscular HGB Conc 32.2 g/dL (30.0-36.0); Mean Corpuscular Hemoglobin 30.6 pg (28.0-34.0); Mean Corpuscular Volume 95.2 fL (81-99); Mean Platelet Volume 10.4 fL (7.4-10.4); Monocytes # 0.8 10^3/uL (0.2-0.9); Neutrophils # 7.4 10^3/uL (1.8-7.7); Neutrophils % 78.5 %; Nucleated Red Blood Cells % 0 %; Platelet Count 277 10^3/cmm (130-400); Red Blood Count 3.56 10^6/uL (4.1-5.3); Red Cell Distribution Width 13.2 % (12.1-15.1); White Blood Count 9.4 10^3/uL (4.0-10.0)
[2019-06-25 06:51] LABS: Alanine Aminotransferase 12 U/L (0-33); Albumin Level 3.5 g/dL (3.5-5.2); Alkaline Phosphatase 63 IU/L (35-105); Anion Gap 15.2 (5-19); Aspartate Amino Transferase 16 U/L (0-32); Blood Urea Nitrogen 12 mg/dL (6-20); Calcium 8.9 mg/dL (8.5-10.5); Carbon Dioxide 23 mmol/L (22-29); Chloride 103 mmol/L (98-107); Globulin 3.6 g/dL (1.3-4.6); Glomerular Filtration Rate 58.2 mL/min (90-130); Glucose 232 mg/dL (65-115); Osmolality Calculated 288 mOsm/kg (285-295); Potassium 4.2 mmol/L (3.5-5.1); Sodium 137 mmol/L (136-145); Total Bilirubin 1.3 mg/dL (0.15-1.2); Total Protein 7.1 g/dL (6.6-8.7)
[2019-06-25 06:56] LABS: Glucose Point of Care 212 mg/dL (70-110)
[2019-06-25] MEDS: atorvastatin 40 mg Tablet 20 MG PO (09:03)
[2019-06-25] MEDS: allopurinol 300 mg Tablet PO (09:04)
[2019-06-25] MEDS: pantoprazole DR 40 mg Tablet PO (09:04)
[2019-06-25] MEDS: pneumococcal (23 valent) SDV 0.5 mL IM (09:04)
[2019-06-25] MEDS: liothyronine 5 mcg Tablet PO (09:08)
[2019-06-25 11:02] LABS: Glucose Point of Care 173 mg/dL (70-110)
--- NOTE | 2019-06-25 12:09 | PC.CHAP ---
Pastoral Care Encounter/Spiritual Assessment Type of Contact [] Declined clerk supervisor visit [] Patient/Family/Request visit [] Outpatient visit [] Follow-up visit [] Physician referral [] Code/Alert [x] Routine visit [] Staff referral [] Actively dying [] Patient sleeping [] Family support [] [] Out of room [] Palliative care [] [] Receiving care in room [] Pre-surgical visit [] Trauma [] Long length of stay [] ICU visit [] Other: Relational/Emotional Strength [x] Patient feels connected with others/family/visitors/staff [] Distress [] Loneliness/isolation [] Abandonment Spirituality of Patient [x] Person of Joanne [] Attends Yazdanism of their Joanne [x] Believes in Prayer [x] Reads Bible or Lutheran materials [] There are Spiritual issues to be addressed Digital Advisor Interventions [x] Prayer [x] Active listening [x] Non-anxious presence [x] Spiritual/emotional support [] Crisis/trauma care [x] Spiritual counseling [] Bereavement support [] Provided bereavement packet [] Provided Bible/devotional materials [] Provided toy/stuffed animal, coloring book to patient or family member [] Provided Communion [] Anointing/Kenneth [] Salvation [] Completed spiritual assessment [] Other: Impact on Illness or Injury [] Angry [] Fearful [] Anxious [] Often cries [] Exhaustion [] Unable to work [] Unable to attend religion [] Unable to walk/stand [] Unable to read [] Unable to drive [] Unable to eat/drink [] Unable to sleep [] Unable to be with family [] Patient intubated [x] Other: Summary Patient expressed her submission to the [place] breezy Jenkins. 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 Time spent with patient 10 minutes
--- NOTE | 2019-06-25 12:11 | P.PN_ITS ---
Subjective Subjective: Interval history: Overall patient is doing well and started passing gas and stool No acute events overnight Vitals/I&O/Wt Last Vital Signs Temp 98.5 F 06/25/19 11:18 Pulse 88 06/25/19 11:18 Resp 16 06/25/19 11:18 BP 123/81 06/25/19 11:18 Pulse Ox 94 06/25/19 11:18 06/24/19 06/25/19 06/25/19 22:59 06:59 14:59 Intake Total 988.75 / 1988.75 Output Total 125 / 125 800 / 925 Balance -125 / 875 188.75 / 1063.75 Weight last 48 hrs Weight 244 lb 3.2 oz Weight 242 lb Physical Exam Narrative: EXAM NARRATIVE: Patient is conscious alert oriented X3 BMI 37 Head and neck examination PERRLA no masses no cervical lymphadenopathy no jaundice Abdomen nontender nondistended soft no organomegaly guarding or rigidity/no signs of peritonitis Data : 06/25/19 05:50 06/25/19 05:50 A&P Assessment and plan (1) Small bowel obstruction: Clear liquid diet and advance as tolerated Highly recommend to have the patient follow-up with her colorectal surgeon upon discharge within a week for concern about potential stricture formation at the ileal pouch anal anastomosis and for possible balloon dilation if indicated. No acute intervention from surgical standpoint of view Assurance and education All questions have been answered and all concerns have been addressed to patient's satisfaction. Thank you for consulting general surgery to participate taking care Ms. Damon Status: Acute Code(s): K56.609 - Unspecified intestinal obstruction, unspecified as to partial versus complete obstruction Attestations Medical Necessity Statement*: Per hospitalist service Time Spent in Patient Care: 16 - 35 minutes (>than 50% of time spent in counselling and/or direct pt care on unit) . Coding Level of Care Code Acute Director Of Industrial Relations for g Fwd Diagnoses Small bowel obstruction K56.609
--- NOTE | 2019-06-25 12:43 | PM.DCS ---
Discharge Providers Date of Admission: 06/24/19 12:14 Date of Discharge: June 25, 2019 Attending Provider at Admission: Mildred Reddy DO Attending Provider at Discharge: Mildred Reddy DO Primary Care Provider: Linda Castro MD Diagnoses at Discharge Discharge Diagnosis (1) Small bowel obstruction: Status: Acute Reason for Visit Reason for Visit: Reason For Visit: Abd pain Hospital Course Hospital Course: Patient was seen and evaluated in the emergency department noted to have concern for partial small bowel obstruction with nausea vomiting for the past 2 days as well as abdominal pain. She was admitted to the hospital and given IV fluids and antiemetics. She refused NG tube due to her prior surgeries. She was kept n.p.o. for bowel rest and her symptoms gradually improved. She was noted to have multiple surgeries in the past and therefore general surgeon was consulted for consultation. She continued to improve and nausea resolved. She was able to pass flatus and had a bowel movement on date of discharge. At time of exam she denied any nausea or vomiting, reported that abdominal pain had much improved. She denied any concerns. Increase diet as tolerated. Physical Exam Const: COMMON NORMALS: oriented x3 and alert GENERAL APPEARANCE: cooperative ORIENTATION/CONSCIOUSNESS: Yes awake, Yes oriented to person, Yes oriented to place and Yes oriented to time HENMT: COMMON NORMALS: normocephalic and head/scalp atraumatic HEAD & SCALP: normocephalic and atraumatic Eye: COMMON NORMALS: PERRL PUPIL: Yes PERRL Neck/C-Spine: COMMON NORMALS: supple GENERAL: Yes normal visual inspection Resp: COMMON NORMALS: normal respiratory effort and clear to auscultation bilaterally EFFORT & INSPECTION: Yes able to speak in complete sentences AUSCULTATION: clear to auscultation bilaterally and no rhonchi OTHER: Faint expiratory wheezing bilaterally Cardio: COMMON NORMALS: regular rate, regular rhythm and no murmurs RATE: regular rate RHYTHM: regular rhythm GI: COMMON NORMALS: soft to palpation PALPATION: Yes soft OTHER: Soft, nontender, nondistended, normal bowel sounds : COMMON NORMALS: Yes no CVA tenderness BLADDER/KIDNEY EXAM: Yes no CVA tenderness Back/Pelvis: COMMON NORMALS: no CVA tenderness Extremity: COMMON NORMALS: no clubbing, cyanosis or edema and no calf tenderness Neuro: COMMON NORMALS: oriented x3, CN's II-XII intact bilaterally, moves all extremities and no focal motor deficits SENSORIUM/ORIENTATION: Yes alert, Yes oriented to person, Yes oriented to place and Yes oriented to time SPEECH: speech normal Psych: COMMON NORMALS: mental status grossly normal and cooperative Skin: COMMON NORMALS: no rashes or lesions noted GENERAL SKIN EXAM: no rashes or lesions noted Discharge Data Data Completed and Pending: Completed Studies During Hospitalization Category Date Time Status CT abdomen pelvis w con* [id number] Urge nt Cat Scan 06/24/19 07:32 Completed XR KUB portable [id number] Routine Exams 06/25/19 06:00 Completed Labs from last 24 hours 06/25/19 06/25/19 06/25/19 10:58 06:49 05:50 WBC RBC Hgb Hct MCV MCH MCHC RDW Plt Count MPV Neut % (Auto) Lymph % (Auto) [place] % (Auto) Eos % (Auto) Baso % (Auto) Neut # (Auto) Lymph # (Auto) [place] # (Auto) Eos # (Auto) Baso # (Auto) Nucleated RBC % (a uto) Nucleated RBCs # Sodium 137 Potassium 4.2 Chloride 103 Carbon Dioxide 23 Anion Gap 15.2 BUN 12 Creatinine 1.0 H GFR Calculation 58.2 L Glucose 232 H POC Glucose 173 212 Calculated Osmolal ity 288 Calcium 8.9 Total Bilirubin 1.3 H AST 16 ALT 12 Alkaline Phosphata se 63 Total Protein 7.1 Albumin 3.5 Globulin 3.6 06/25/19 06/24/19 06/24/19 05:50 21:01 17:53 WBC 9.4 RBC 3.56 L Hgb 10.9 L Hct 33.9 L MCV 95.2 D MCH 30.6 MCHC 32.2 RDW 13.2 Plt Count 277 MPV 10.4 Neut % (Auto) 78.5 Lymph % (Auto) 11.5 J[place] % (Auto) 9.0 Eos % (Auto) 0.4 Baso % (Auto) 0.3 Neut # (Auto) 7.4 Lymph # (Auto) 1.1 [place] # (Auto) 0.8 Eos # (Auto) 0.0 Baso # (Auto) 0.0 Nucleated RBC % (a uto) 0 Nucleated RBCs # 0.0 Sodium Potassium Chloride Carbon Dioxide Anion Gap BUN Creatinine GFR Calculation Glucose POC Glucose 151 168 Calculated Osmolal ity Calcium Total Bilirubin AST ALT Alkaline Phosphata se Total Protein Albumin Globulin Vitals: Last Vital Signs Temp 98.5 F 06/25/19 11:18 Pulse 88 06/25/19 11:18 Resp 16 06/25/19 11:18 BP 123/81 06/25/19 11:18 Pulse Ox 94 06/25/19 11:18 Discharge Plan Discharge Patient Disposition: Home, Self-Care Condition: Stable Prescriptions: Continued multivitamin Tablet 1 tab PO DAILY RF: 0 methocarbamol 500 mg Tablet See Rx Instructions .ROUTE .COMPLEX RF: 0 carica papaya [Papaya Enzyme] Tablet 1 tab PO TID PRN (Reason: PRN) RF: 0 meloxicam 15 mg Tablet 15 mg PO DAILY RF: 0 estradiol [Vivelle-Dot] 0.1 mg/24 hr Patch Semiweekly See Rx Instructions .ROUTE .COMPLEX RF: 0 diphenoxylate-atropine [Lomotil] 2.5-0.025 mg Tablet 2 tab PO TID RF: 0 Flagyl 500 mg Tablet 500 mg PO EVERY OTHER DAY RF: 0 hydrocodone-acetaminophen 10-325 mg Tablet 1 tab PO Q6H PRN (Reason: Pain) RF: 0 liothyronine 5 mcg Tablet 5 mcg PO DAILY RF: 0 lorazepam 0.5 mg Tablet 0.5 mg PO TID PRN (Reason: Anxiety) RF: 0 cyanocobalamin (vitamin B-12) 500 mcg Tablet 500 mcg PO DAILY RF: 0 pantoprazole 40 mg Tablet,Delayed Release (Dr/Ec) 40 mg PO BID RF: 0 ropinirole 0.5 mg Tablet 2.5 mg PO BEDTIME RF: 0 Sudafed 30 mg Tablet 30 mg PO Q6H PRN (Reason: Cough) RF: 0 montelukast 10 mg Tablet 10 mg PO BEDTIME RF: 0 allopurinol 300 mg Tablet 300 mg PO DAILY RF: 0 furosemide [Lasix] 20 mg Tablet 20 mg PO DAILY RF: 0 albuterol sulfate [Ventolin HFA] 90 mcg/actuation Hfa Aerosol Inhaler 2 inh INHALATION BID PRN (Reason: Shortness Of Breath) RF: 0 magnesium oxide 250 mg magnesium Tablet 250 mg PO BID RF: 0 potassium iodide 130 mg Tablet 99 mg PO DAILY RF: 0 Symbicort 160-4.5 mcg/actuation Hfa Aerosol Inhaler 2 puff INHALATION BID RF: 0 levothyroxine 137 mcg Capsule See Rx Instructions .ROUTE .COMPLEX RF: 0 Bydureon 2 mg/0.65 mL Pen Injector 2 mg SUBCUT Q7D RF: 0 biotin 1,000 mcg Tablet,Chewable 1,000 mcg PO DAILY RF: 0 Align 10.5 mg (10 million cell) Tablet,Chewable 10.5 mg PO BEDTIME RF: 0 duloxetine 60 mg Capsule, Delayed Rel Sprinkle 60 mg PO BEDTIME RF: 0 atorvastatin 20 mg Tablet 20 mg PO DAILY RF: 0 Discharge Orders: Discharge Order (Routine); Ordered 06/25/19 Ordered By: Mildred Reddy Referrals: Linda Castro MD [Primary Care Provider] - 07/02/19 1:30 pm (APPOINTMENT WITH [facility] ON JULY 01 AT 1:30) Shawn Munroe MD [Referring] - 2 weeks (Please contact Dr. Munroe for an appointment to be seen within 2 weeks.) Discharge Diet: Advance as tolerated and Diabetic Discharge Activity: Increase activity as tolerated Patient Instructions: Bowel Obstruction Activity Restrictions/Additional Instructions: Gradually increase diet as tolerated. Start with bland soft diet. Continue home medications, gradually increase activity as tolerated Recommend follow-up with primary care provider in 7 to 10 days Recommend follow-up with Dr. Munroe for consideration of pouchoscopy and hospital follow-up Call your physician or present to the ER for any acute illness or concern Discharge Attestations Time Spent in Discharge Care*: greater than 30 min Quality Metrics Clinical Quality Measures During this hospital stay, did patient experience: None Coding Level of Care Code Acute Market Relationship Manager for Chg Fwd Exam Comprehensive Diagnoses Small bowel obstruction K56.609
== END 2019-06-25 15:00 | disposition home or self-care (01) | DRG 390 ==
LOC: ER 11:11 → MEDSURG 14:51
PROVIDERS: Nurse Practitioner Family; Admitting Provider Family Medicine; Emergency Provider Emergency Medicine; Family Provider Internal Medicine; PCP Internal Medicine; Visit Provider Family Medicine
DX: K56.609 Unspecified intestinal obstruction, unspecified as to partial versus complete obstruction (principal); Z79.899 Other long term (current) drug therapy; J44.9 Chronic obstructive pulmonary disease, unspecified; K21.9 Gastro-esophageal reflux disease without esophagitis; E11.9 Type 2 diabetes mellitus without complications; M79.7 Fibromyalgia; I10 Essential (primary) hypertension; Z79.4 Long term (current) use of insulin; Z79.890 Hormone replacement therapy; Z88.0 Allergy status to penicillin; Z88.8 Allergy status to other drugs, medicaments and biological substances; K52.9 Noninfective gastroenteritis and colitis, unspecified; F41.9 Anxiety disorder, unspecified; F32.9 Major depressive disorder, single episode, unspecified; E03.9 Hypothyroidism, unspecified; K76.0 Fatty (change of) liver, not elsewhere classified; K80.20 Calculus of gallbladder without cholecystitis without obstruction; Z79.51 Long term (current) use of inhaled steroids
CPT/HCPCS: 12345; 36415; 36416; 74018; 74177; 80053; 81001; 82962; 83605; 83690; 85025; 90471; 90732; 94640; 96372; 96375; 99283; A9270; J1170; J1650; J2270; J2405; J7030; Q9967

== ENCOUNTER 2019-09-16 12:17 | Outpatient (CLI) | payer MEDICARE, MEDICAID, SELFPAY ==
[2019-09-18 18:11] LABS: Alternaria Alternata (M6) Ige <0.10 kU/L; Alternaria Class 0; Bermuda Class 0; Bermuda Grass (G2) Ige <0.10 kU/L; Cat Dander (E1) Ige <0.10 kU/L; Cat Dander Class 0; Common Ragweed (Short) (W1) Ig <0.10 kU/L; D. Farinae Class 0; Dermatophagoides Class 0; Dermatophagoides Farinae (D2) <0.10 kU/L; Dermatophagoides Pteronyssinus <0.10 kU/L; Dog Dander (E5) Ige <0.10 kU/L; Dog Dander Class 0; Elm (T8) Ige <0.10 kU/L; Elm Class 0; English Plantain (W9) Ige <0.10 kU/L; English Plantain Class 0; House Dust (Greer) (H1) Ige <0.10 kU/L; House Dust (Hollister- Stier) <0.10 kU/L; House Dust Class 0; Immunoglobulin E 6 kU/L (<OR=114); Johnson Grass (G10) Ige <0.10 kU/L; Johnson Grass Cl 0; June Grass Class 0; June Grass(Kentucky Blue) (G8) <0.10 kU/L; Lamb'S Quarters (Goose Foot) <0.10 kU/L; Lamb'S Quarters Class 0; Maple (Box Elder) (T1) Ige <0.10 kU/L; Maple Class 0; Meadow Fescue (G4) Ige <0.10 kU/L; Meadow Fescue Class 0; Mucor Racemosus Class 0; Oak (T7) Ige <0.10 kU/L; Oak Class 0; Orchard Grass (Cocksfoot) (G3) <0.10 kU/L; Penicillium Class 0; Penicillium Notatum (M1) Ige <0.10 kU/L; Perennial Rye Grass (G5) Ige <0.10 kU/L; Perennial Rye Grass Class 0; Ragweeed Class 0; Rough Marsh Elder (W16) Ige <0.10 kU/L; Rough Marsh Elder Class 0; Sweet Vernal Class 0; Sweet Vernal Grass (G1) Ige <0.10 kU/L; Timothy Grass (G6) Ige <0.10 kU/L; Timothy Grass Class 0
[2019-09-22 18:46] LABS: Aspergillus Fumigatus, Igg Ab, 73.2 mg/L (<=102)
== END 2019-09-16 12:18 | disposition home or self-care (01) ==
LOC: LAB 12:21
PROVIDERS: PCP Internal Medicine; Visit Provider Internal Medicine Critical Care Medicine
DX: R06.02 Shortness of breath (principal)
CPT/HCPCS: 36415

== ENCOUNTER → 2019-11-27 10:34 | Outpatient (BNVA) | payer MEDICARE, MEDICAID, SELFPAY | PROVIDERS: PCP Internal Medicine; Visit Provider Internal Medicine | DX: J45.909 Unspecified asthma, uncomplicated (principal) | CPT/HCPCS: 87635 ==

== ENCOUNTER 2019-12-02 10:58 | Outpatient (CLI) | payer MEDICARE, MEDICAID, SELFPAY | END 2019-12-02 10:59 | disposition home or self-care (01) | LOC: RT 11:01 | PROVIDERS: PCP Internal Medicine; Visit Provider Internal Medicine Critical Care Medicine | DX: J44.9 Chronic obstructive pulmonary disease, unspecified (principal) | CPT/HCPCS: 94010; 94726; 94729 ==

== ENCOUNTER → 2020-03-21 13:24 | Outpatient (BNVA) | payer MEDICARE, MEDICAID, SELFPAY | PROVIDERS: PCP Internal Medicine; Visit Provider Internal Medicine | DX: K51.90 Ulcerative colitis, unspecified, without complications (principal); Z11.59 Encounter for screening for other viral diseases; M25.50 Pain in unspecified joint; Z51.81 Encounter for therapeutic drug level monitoring; L40.9 Psoriasis, unspecified; D86.9 Sarcoidosis, unspecified; N20.0 Calculus of kidney | CPT/HCPCS: 36415; 72202; 73120; 80053; 81001; 82306; 82310; 82550; 82728; 83540; 83735; 83970; 84100; 84443; 85025; 85651; 86140; 86431; 86704; 86803; 86812; 87340; 99204 ==

== ENCOUNTER 2020-03-21 14:36 | Outpatient (CLI) | payer MEDICARE, MEDICAID, SELFPAY ==
--- NOTE | 2020-03-21 15:10 | XRR_ITS ---
PROCEDURE INFORMATION: Exam: XR Left Hand Exam date and time: 03/21/2020 3:19 PM Age: 54 years old Clinical indication: Condition or disease; Other: Ulcerative colitis, unspecified, without complications; Additional info: K51.90 - ulcerative colitis, unspecified, without complications TECHNIQUE: Imaging protocol: XR Left hand. Views: 1 or 2 views. COMPARISON: No relevant prior studies available. FINDINGS: Bones/joints: Negative for acute bony abnormality. Soft tissues: Small metallic surgical clip is seen near the distal shaft of the radius XR/XR hand LT 2V [id number] IMPRESSION: No acute findings.
--- NOTE | 2020-03-21 15:10 | XRR_ITS ---
PROCEDURE INFORMATION: Exam: XR Bilateral Sacroiliac Joints, 3 or More Views Exam date and time: 03/21/2020 3:19 PM Age: 54 years old Clinical indication: Condition or disease; Other: Psoriasis, unspecified; Prior surgery; Surgery type: Rectum colon; Additional info: L40.9 - psoriasis, unspecified TECHNIQUE: Imaging protocol: XR Bilateral XR of the sacroiliac joints, 3 or more views. COMPARISON: CR Sacroiliac Joints [id number] 03/18/2019 1:55 PM FINDINGS: Bones/joints: Normal. No acute fracture. The sacroiliac joints do not show acute abnormality. Soft tissues: A caliceal stone is present in the lower pole of collecting system of the right kidney measuring 21 mm x 18 mm. Metallic surgical clips are present in the upper quadrants XR/XR sacroiliac jts m 3V [id number] IMPRESSION: 1. No acute bone abnormalities. 2. Caliceal stone lower pole collecting system right kidney 3. Metallic surgical clips upper abdomen
--- NOTE | 2020-03-21 15:10 | XRR_ITS ---
PROCEDURE INFORMATION: Exam: XR Right Hand Exam date and time: 03/21/2020 3:19 PM Age: 54 years old Clinical indication: Condition or disease; Other: Ulcerative colitis, unspecified, without complications; Prior surgery; Surgery type: Carpal tunnel; Additional info: K51.90 - ulcerative colitis, unspecified, without complications TECHNIQUE: Imaging protocol: XR Right hand. Views: 1 or 2 views. COMPARISON: No relevant prior studies available. FINDINGS: Bones/joints: Negative for acute bony abnormality Soft tissues: Unremarkable XR/XR hand RT 2V [id number] IMPRESSION: No acute findings.
[2020-03-21 15:47] LABS: Basophils % 0.6 %; Eosinophils # 0.3 10^3/uL (0.0-0.8); Eosinophils % 4.3 %; Hematocrit 32.7 % (37.0-47.0); Hemoglobin 10.5 g/dL (11.5-15.3); Lymphocytes # 2.4 10^3/uL (0.8-4.8); Lymphocytes % 35.5 %; Mean Corpuscular HGB Conc 32.1 g/dL (30.0-36.0); Mean Corpuscular Hemoglobin 28.2 pg (28.0-34.0); Mean Corpuscular Volume 87.7 fL (81-99); Mean Platelet Volume 9.7 fL (7.4-10.4); Monocytes # 0.5 10^3/uL (0.2-0.9); Monocytes % 6.9 %; Neutrophils # 3.51 10^3/uL (1.8-7.7); Neutrophils % 52.6 %; Nucleated Red Blood Cells % 0 %; Platelet Count 417 10^3/cmm (130-400); Red Blood Count 3.73 10^6/uL (4.1-5.3); Red Cell Distribution Width 14.2 % (12.1-15.1); White Blood Count 6.7 10^3/uL (4.0-10.0)
[2020-03-21 16:29] LABS: Add Urine Microscopic? YES; Bacteria Urine TRACE /hpf; Bilirubin Urine Neg (Negative); Blood Urine Neg (Negative); Glucose Urine UA Norm (Normal); Ketones Urine Negative (Negative); Leukocyte Esterase Urine Trace (Negative); Nitrate Urine Negative (Negative); Protein Urine Neg (Negative); Squamous Epithelial Cell Urine 0-4 /hpf (0-5); Urine Appearance SL Hazy (CLEAR); Urine Color Yellow (Yellow); Urobilinogen Urine Norm (Negative); pH Urine 5 (5-7)
[2020-03-21 16:30] LABS: Add Urine Culture? No; Mucus Urine 1+ /hpf
[2020-03-21 16:41] LABS: Alanine Aminotransferase 19 U/L (0-33); Albumin Level 4.2 g/dL (3.5-5.2); Alkaline Phosphatase 83 IU/L (35-105); Aspartate Amino Transferase 26 U/L (0-32); Blood Urea Nitrogen 11 mg/dL (6-20); C Reactive Protein 1.5 mg/L (0.0-4.9); Calcium 9.8 mg/dL (8.5-10.5); Carbon Dioxide 25 mmol/L (22-29); Chloride 101 mmol/L (98-107); Creatine Phosphokinase 90 U/L (26-192); Globulin 3.8 g/dL (1.3-4.6); Glomerular Filtration Rate 58.2 mL/min (90-130); Glucose 147 mg/dL (65-115); Magnesium 1.8 mg/dL (1.7-2.3); Osmolality Calculated 286 mOsm/kg (285-295); Phosphorus 3.9 mg/dL (2.5-4.5); Sodium 137 mmol/L (136-145); Total Bilirubin 0.5 mg/dL (0.15-1.2)
[2020-03-21 16:51] LABS: Calcium 9.9 mg/dL (8.5-10.5)
[2020-03-21 17:07] LABS: Hepatitis B Core AB, Total Non-Reactive (Nonreactive)
[2020-03-21 17:25] LABS: Ferritin 27 ng/mL (15-150); Hepatitis B Surface Antigen Non-Reactive (Nonreactive); Hepatitis C Virus Antibody Non-Reactive (Nonreactive); Iron 35 ug/dL (37-145)
[2020-03-21 17:48] LABS: Parathyroid Hormone 33.8 pg/mL (15-65)
[2020-03-21 18:20] LABS: Erythrocyte Sedimentation Rate 44 mm/hr (0-15)
[2020-03-21 18:36] LABS: 25 Hydroxy Vitamin D 25 ng/mL (30-100)
[2020-03-22 12:52] LABS: Cyclic Citrullinated Peptide <16 UNITS
[2020-03-23 13:09] LABS: CENTROMERE B ANTIBODY <1.0 NEG AI (<1.0 NEG); COMPLEMENT COMPONENT C3C 159 mg/dL (83-193); COMPLEMENT COMPONENT C4C 30 mg/dL (15-57); JO-1 ANTIBODY <1.0 NEG AI (<1.0 NEG); RNP ANTIBODY <1.0 NEG AI (<1.0 NEG); SCL-70 ANTIBODY <1.0 NEG AI (<1.0 NEG); SJOGREN'S ANTIBODY (SS-A) <1.0 NEG AI (<1.0 NEG); SM ANTIBODY <1.0 NEG AI (<1.0 NEG); SS-B <1.0 NEG AI (<1.0 NEG)
[2020-03-23 15:14] LABS: COMPLEMENT, TOTAL (CH50) >60 U/mL (31-60)
[2020-03-24 14:28] LABS: THYROID PEROXIDASE ANTIBODIES <1 IU/mL (<9)
[2020-03-24 14:59] LABS: ANA SCREEN, IFA NEGATIVE (NEGATIVE)
[2020-03-24 16:58] LABS: HLA-B27 POSITIVE (NEGATIVE)
[2020-03-25 00:58] LABS: DNA AB (DS) CRITHIDIA,IFA NEGATIVE (NEGATIVE)
== END 2020-03-21 14:37 | disposition home or self-care (01) ==
PROVIDERS: PCP Internal Medicine; Visit Provider Internal Medicine
DX: Z51.81 Encounter for therapeutic drug level monitoring (principal); K51.90 Ulcerative colitis, unspecified, without complications; L40.9 Psoriasis, unspecified; D86.9 Sarcoidosis, unspecified; N20.0 Calculus of kidney
CPT/HCPCS: 36415; 72202; 73120; 80053; 81001; 82306; 82310; 82550; 82728; 83540; 83735; 83970; 84100; 84443; 85025; 85651; 86140; 86431; 86704; 86803; 86812; 87340

== ENCOUNTER 2020-03-23 13:24 | Outpatient (CLI) | payer MEDICARE, MEDICAID, SELFPAY ==
--- NOTE | 2020-03-23 13:30 | XRR_ITS ---
PROCEDURE INFORMATION: Exam: XR Abdomen, 1 View Exam date and time: 03/23/2020 1:53 PM Age: 54 years old Clinical indication: Condition or disease; Other: Urolithiasis; Prior surgery; Surgery type: Appy, hyster, colon TECHNIQUE: Imaging protocol: XR of the abdomen. Views: Frontal supine view of the abdomen. 1 View. COMPARISON: CR XR KUB portable [id number] 06/25/2019 6:18 AM FINDINGS: Tubes, catheters and devices: Surgical sutures overlying the pelvis. Diaphragm: Asymmetric elevation of the incompletely visualized right hemidiaphragm. Gastrointestinal tract: Mild right-sided bowel dilatation. Intraperitoneal space: Multiple surgical clips in the left upper abdomen. Bones/joints: Degenerative change. XR/XR KUB [id number] IMPRESSION: Mild right-sided bowel dilatation.
== END 2020-03-23 13:25 | disposition home or self-care (01) ==
LOC: RAD 13:26
PROVIDERS: PCP Internal Medicine; Visit Provider Urology
DX: N20.9 Urinary calculus, unspecified (principal)
CPT/HCPCS: 74018; 81003

== ENCOUNTER → 2020-04-12 14:35 | Outpatient (BNVA) | payer MEDICARE, MEDICAID, SELFPAY | PROVIDERS: PCP Internal Medicine; Visit Provider Internal Medicine | DX: R79.89 Other specified abnormal findings of blood chemistry (principal); E61.1 Iron deficiency; M25.50 Pain in unspecified joint; K51.90 Ulcerative colitis, unspecified, without complications; Z79.899 Other long term (current) drug therapy | CPT/HCPCS: 99214 ==

== ENCOUNTER → 2020-05-16 08:58 | Outpatient (BNVA) | payer MEDICARE, MEDICAID, SELFPAY | PROVIDERS: PCP Internal Medicine; Visit Provider Internal Medicine Rheumatology | DX: E61.1 Iron deficiency (principal); M25.50 Pain in unspecified joint; Z79.899 Other long term (current) drug therapy | CPT/HCPCS: 36415; 80053; 85025; 86140 ==

== ENCOUNTER → 2020-05-24 09:48 | Outpatient (BNVA) | payer MEDICARE, MEDICAID, SELFPAY | PROVIDERS: PCP Internal Medicine; Visit Provider Internal Medicine | DX: K51.90 Ulcerative colitis, unspecified, without complications (principal); M25.50 Pain in unspecified joint; E55.9 Vitamin D deficiency, unspecified; E61.1 Iron deficiency | CPT/HCPCS: 99213; 99214 ==

== ENCOUNTER → 2020-07-07 12:54 | Day surgery (SDC) | payer MEDICARE, MEDICAID, SELFPAY ==
[2020-07-07] MEDS: ferric carboxy (IVPB) 750 MG in sodium chloride 0.9% (100 ml) 100 ML 345 MG IV (13:09)
[2020-07-07 13:15] VITALS: BP 152/84; PULSE 89; RESP 18; TEMP 36.1; O2SAT 97
== END ==
PROVIDERS: PCP Internal Medicine; Visit Provider Internal Medicine
DX: D64.9 Anemia, unspecified (principal)
CPT/HCPCS: 96365; J1439

== ENCOUNTER → 2020-07-20 12:55 | Day surgery (SDC) | payer MEDICARE, MEDICAID, SELFPAY ==
[2020-07-20 13:19] VITALS: BP 140/87; PULSE 104; RESP 18; TEMP 36.4; O2SAT 96
[2020-07-20] MEDS: ferric carboxy (IVPB) 750 MG in sodium chloride 0.9% (100 ml) 100 ML 345 MG IV (13:33)
== END ==
PROVIDERS: PCP Internal Medicine; Visit Provider Internal Medicine
DX: D64.9 Anemia, unspecified (principal)
CPT/HCPCS: 96365; J1439

== ENCOUNTER 2020-08-08 13:05 | Outpatient (CLI) | payer MEDICARE, MEDICAID, SELFPAY ==
--- NOTE | 2020-08-08 13:27 | XRR_ITS ---
PROCEDURE INFORMATION: Exam: XR Right Wrist Exam date and time: 08/08/2020 1:34 PM Age: 55 years old Clinical indication: Pain and injury or trauma; Fall; Blunt trauma (contusions or hematomas); Wrist; Right; Injury date: 08/01/20; Prior surgery; Surgery type: Carpal tunnel; Additional info: RT wrist pain TECHNIQUE: Imaging protocol: XR Right wrist. Views: 1 or 2 views. COMPARISON: CR XR hand RT 2V [id number] 03/21/2020 3:36 PM FINDINGS: Bones/joints: Questionable widening of the scapholunate joint, which can be better evaluated with stress views, if clinically indicated. No acute bony injury in the visualized right wrist. Soft tissues: No radiopaque foreign body. XR/XR wrist RT 2V [id number] IMPRESSION: Questionable widening of the scapholunate joint, which can be better evaluated with stress views, if clinically indicated.
--- NOTE | 2020-08-08 13:33 | XRR_ITS ---
PROCEDURE INFORMATION: Exam: XR Right Elbow Exam date and time: 08/08/2020 1:34 PM Age: 55 years old Clinical indication: Pain and injury or trauma; Fall; Blunt trauma (contusions or hematomas); Right; Injury date: 08/01/20; Prior surgery; Surgery type: Elbow 2017 and 2018; Additional info: RT elbow pain TECHNIQUE: Imaging protocol: XR Right elbow. Views: 3 or more views. COMPARISON: CR Elbow 3 views, RIGHT* [id number] 02/17/2018 11:35 PM FINDINGS: Bones/joints: Radial head arthroplasty with prominent periprosthetic lucency suspicious for loosening and/or infection. Additional nondisplaced cortical fracture. Degenerative change. Residual surgical screw about the lateral epicondyle. Soft tissues: Soft tissue calcifications. XR/XR elbow RT min 3V* [id number] IMPRESSION: Radial head arthroplasty with prominent periprosthetic lucency suspicious for loosening and/or infection. Additional nondisplaced cortical fracture.
== END 2020-08-08 13:06 | disposition home or self-care (01) ==
PROVIDERS: PCP Internal Medicine; Visit Provider Internal Medicine
DX: M25.521 Pain in right elbow (principal)
CPT/HCPCS: 73080; 73100

== ENCOUNTER → 2020-08-29 10:45 | Outpatient (BNVA) | payer MEDICARE, MEDICAID, SELFPAY | PROVIDERS: PCP Internal Medicine; Visit Provider Internal Medicine | DX: M25.50 Pain in unspecified joint (principal); K51.90 Ulcerative colitis, unspecified, without complications; L40.9 Psoriasis, unspecified; Z11.1 Encounter for screening for respiratory tuberculosis | CPT/HCPCS: 99214 ==

== ENCOUNTER 2020-09-23 14:55 | Outpatient (CLI) | payer MEDICARE, MEDICAID, SELFPAY ==
--- NOTE | 2020-09-23 14:58 | MM_ITS ---
WS: [id number] SCREENING DIGITAL MAMMOGRAM WITH CAD HISTORY: SCREENING COMPARISON: 10/27/2018 and 11/26/2016 Bilateral CC and MLO views submitted. Computer aided detection analyzed. Breast composition: There are scattered areas of fibroglandular density. No suspicious masses, microc alcifications or architectural distortion. MM/[place] [id number] IMPRESSION: BI-RADS: 1-Negative FOLLOW UP: 1 Year Follow-up
== END 2020-09-23 14:56 | disposition home or self-care (01) ==
LOC: RADSHAW 14:57
PROVIDERS: PCP Internal Medicine; Visit Provider Internal Medicine
DX: Z12.31 Encounter for screening mammogram for malignant neoplasm of breast (principal)
CPT/HCPCS: 77067

== ENCOUNTER 2021-03-22 13:03 | Outpatient (CLI) | payer MEDICARE, MEDICAID, SELFPAY ==
--- NOTE | 2021-03-22 13:00 | XRR_ITS ---
PROCEDURE INFORMATION: Exam: XR Abdomen Exam date and time: 03/22/2021 1:00 PM Age: 55 years old Clinical indication: Condition or disease; Kidney or ureter condition; Other: Urolithiasis; Prior surgery; Surgery type: Stomach, colon, hyst TECHNIQUE: Imaging protocol: XR of the abdomen. Views: Frontal supine view of the abdomen. 1 View. COMPARISON: CR XR KUB [id number] 03/23/2020 1:47 PM FINDINGS: Gastrointestinal tract: No bowel dilation. Moderate colonic stool burden. Overlying bowel gas limits evaluation for radiographically appearance stones within the right kidney. No evidence stones in the left kidney. Intraperitoneal space: Multiple surgical clips noted within the abdomen. Bones/joints: Unremarkable. XR/XR KUB [id number] IMPRESSION: No acute findings.
== END 2021-03-22 13:04 | disposition home or self-care (01) ==
PROVIDERS: PCP Internal Medicine; Visit Provider Urology
DX: N20.9 Urinary calculus, unspecified (principal)
CPT/HCPCS: 74018; 81003

== ENCOUNTER 2021-04-23 21:25 | Inpatient (IN) | payer MEDICARE, MEDICAID, SELFPAY ==
[2021-04-23 21:27] VITALS: BP 161/72; PULSE 80; RESP 25; O2SAT 98; BMI 35.8
--- NOTE | 2021-04-23 21:52 | XRR_ITS ---
PROCEDURE INFORMATION: Exam: XR Chest Exam date and time: 04/23/2021 9:52 PM Age: 55 years old Clinical indication: Shortness of breath; Additional info: SOB TECHNIQUE: Imaging protocol: XR of the chest. Views: 1 view. Total images: 1 COMPARISON: CR Chest 1 [place] [id number] 05/18/2018 7:02 AM FINDINGS: Lungs: Right upper lobe pneumonitis/pneumonia. Pleural spaces: No visible pleural effusion. No pneumothorax. Heart/Mediastinum: Cardiac structures and configuration within normal limits. Bones/joints: Unremarkable. Soft tissues: Heavy body habitus. XR/XR chest 1V portable [id number] IMPRESSION: Right upper lobe pneumonitis/pneumonia.
[2021-04-23 22:05] VITALS: RESP 14
[2021-04-23] MEDS: morphine 4 mg/mL SDV 1 mL IVP (22:05)
[2021-04-23] MEDS: ondansetron 2 mg/ML SDV 2 mL 4 MG IV (22:05)
[2021-04-23] MEDS: sodium chloride 0.9% 1,000 ML 999 ML IV (22:06)
--- NOTE | 2021-04-23 22:10 | W.ED.GENADLT ---
HPI - General Adult General: Chief complaint: General Medical Stated complaint: flu like sym Time Seen by Provider: 04/23/21 21:39 History of Present Illness: HPI narrative: 55-year-old lady with a history of Crohn's, asthma, and diabetes. She presents with several days of worsening cough, shortness of breath, fevers, and vomiting. She was tested for COVID-19 on Saturday, via rapid and her PCP office, and tested negative. Her symptoms have worsened since then. At home, her oxygen saturations were evidently in the 70s follow-up walking. She arrives by EMS. She says she has had a lot of vomiting, to the point that she is vomiting liquids at times. Onset (ago): day(s) Location: head Radiation: non-radiation Severity: moderate Quality: other Pain Consistency: constant Relieving factors: none Exacerbating factors: none Associated symptoms: Reports chest pain, cough, decreased appetite, dyspnea, fevers/chills, headache(s), nausea, short of breath, vomiting and weakness (Generalized); Deny rash or syncope Review of Systems Const: Reports: fever(s), chills and body aches Eyes: Reports: eye discharge Card: Reports: chest pain; Denies: syncope Resp: Reports: dyspnea GI: Reports: nausea and vomiting Skin/Breast: Denies: rash Neuro: Reports: headache(s) PFSH ED PFSH: Medical History Cholelithiasis COPD (chronic obstructive pulmonary disease) Diabetes mellitus type 2, insulin dependent Fibromyalgia GERD (gastroesophageal reflux disease) Headache, migraine History of flexible sigmoidoscopy Hypertension Ulcerative colitis Urolithiasis Surgical History History of closure of ileostomy History of colectomy History of fasciotomy History of nasal septoplasty History of partial gastrectomy History of repair of rotator cuff History of skin graft History of thyroidectomy Family History Mother , AT AGE 68 CAD (coronary artery disease) Stroke Diabetes Father COPD (chronic obstructive pulmonary disease) Degenerative disk disease Arthritis Social History Smoking and tobacco status: never smoked Second hand smoke exposure: Yes Smoking risk assessment/counseling performed?: No Alcohol intake: never Desire information about alcohol rehabilitation?: No Counseling given: No Desire information about substance/drug rehabilitation?: No Counseling given: No Lives independently: Yes Household members: spouse Marital status: Current occupational status: disabled History of recent travel: No Current gender identity: Female Physical Exam Const: COMMON NORMALS: patient oriented x3 and alert GENERAL APPEARANCE: ill appearing HENMT: COMMON NORMALS: normocephalic, atraumatic and Normal external nose present HEAD & SCALP: normocephalic and atraumatic FACE & SINUS: normal facial exam NOSE: Normal external nose present Eye: CONJUNCTIVA: Yes conjunctival abnormal positive bilateral discharge Chest: COMMONS NORMALS: normal inspection of the chest Resp: AUSCULTATION: rhonchi (Light) throughout Cardio: COMMON NORMALS: regular rate and regular rhythm RATE: regular rate RHYTHM: regular rhythm GI: COMMON NORMALS: Normal to inspection, nondistended, normoactive bowel sounds present and Soft to palpation PALPATION: Yes Soft to palpation Neuro: COMMON NORMALS: patient oriented x3 SENSORIUM/ORIENTATION: Yes alert Course Consultations: Consultation #1: chon Vital Signs: Vital signs: Vital Signs Pulse Rate 80 04/23/21 21:27 Respiratory Rate 14 04/23/21 22:05 Blood Pressure 161/72 04/23/21 21:27 Pulse Oximetry 98 04/23/21 21:27 MDM - General Adult MDM Narrative: Medical decision making narrative: 55-year-old female presenting with cough, shortness of breath, low saturations at home, and vomiting liquids. She is Covid positive by PCR. Hemoglobin is 10. Potassium 3.4. Creatinine 1.2. Her chest x-ray shows a right-sided upper lobe pneumonitis/pneumonia. D-dimer is significantly elevated, so CTA was performed and shows similar findings. No pulmonary embolus. Although not requiring oxygen at rest, she has significant oxygen demand with any motion. She is ill, and vomiting liquids. She will be observed. Lab Data: Labs: Lab Results 04/23/21 04/23/21 04/23/21 21:59 22:10 22:10 WBC 6.4 10^3/uL 10^3/ uL (4.0-10.0) RBC 3.26 10^6/uL L 10 ^6/uL (4.1-5.3) Hgb 10.1 g/dL L g/dL (11.5-15.3) Hct 30.3 % L % (37.0-47.0) MCV 92.9 fl fl (81-99) MCH 31.0 pg pg (28.0-34.0) MCHC 33.3 g/dL g/dL (30.0-36.0) RDW 13.1 % % (12.1-15.1) Plt Count 265 10^3/cmm 10^3 /cmm (130-400) MPV 9.8 fL fL (7.4-10.4) Neut % (Auto) 74.4 % % Lymph % (Auto) 13.1 % % Sharkey % (Auto) 11.2 % % Eos % (Auto) 0.3 % % Baso % (Auto) 0.5 % % Neut # (Auto) 4.79 10^3/uL 10^3 /uL (1.8-7.7) Lymph # (Auto) 0.8 10^3/uL 10^3/ uL (0.8-4.8) Sharkey # (Auto) 0.7 10^3/uL 10^3/ uL (0.2-0.9) Eos # (Auto) 0.0 10^3/uL 10^3/ uL (0.0-0.8) Baso # (Auto) 0.0 10^3/uL 10^3/ uL (0.0-0.1) Nucleated RBC % (a uto) 0 % % Nucleated RBCs # 0.0 /100WBC /100W BC D-Dimer 1.24 ug/mIFEU H u g/mIFEU (0-0.59) Sodium Potassium Chloride Carbon Dioxide Anion Gap BUN Creatinine GFR Calculation Glucose Calculated Osmolal ity Lactic Acid Calcium Total Bilirubin AST ALT Alkaline Phosphata se C-Reactive Protein NT-Pro-B Natriuret Pep Total Protein Albumin Globulin Procalcitonin Coronavirus 229E ( PCR) Not detected (NOT DETECT) SARS-CoV-2 (PCR) Detected A (NOT DETECT) 04/23/21 04/23/21 22:10 22:20 WBC RBC Hgb Hct MCV MCH MCHC RDW Plt Count MPV Neut % (Auto) Lymph % (Auto) Sharkey % (Auto) Eos % (Auto) Baso % (Auto) Neut # (Auto) Lymph # (Auto) Sharkey # (Auto) Eos # (Auto) Baso # (Auto) Nucleated RBC % (a uto) Nucleated RBCs # D-Dimer Sodium 133 mmol/L L mmol /L (136-145) Potassium 3.4 mmol/L L mmol /L (3.5-5.1) Chloride 97 mmol/L L mmol/ L (98-107) Carbon Dioxide 23 mmol/L mmol/L (22-29) Anion Gap 16.4 (5-19) BUN 9 mg/dL mg/dL (6-20) Creatinine 1.2 mg/dL H mg/dL (0.5-0.9) GFR Calculation 47.0 mL/min L mL/ min (90-130) Glucose 139 mg/dL H mg/dL (65-115) Calculated Osmolal ity 277 mOsm/kg L mOs m/kg (285-295) Lactic Acid 0.9 mmol/L mmol/L (0.5-2.2) Calcium 8.5 mg/dL mg/dL (8.5-10.5) Total Bilirubin 0.8 mg/dL mg/dL (0.15-1.2) AST 21 U/L U/L (0-32) ALT 11 U/L U/L (0-33) Alkaline Phosphata se 76 IU/L IU/L (35-105) C-Reactive Protein 181.4 mg/L H mg/L (0.0-4.9) NT-Pro-B Natriuret Pep 459 pg/mL H pg/mL (0-125) Total Protein 6.9 g/dL g/dL (6.6-8.7) Albumin 3.6 g/dL g/dL (3.5-5.2) Globulin 3.3 g/dL g/dL (1.3-4.6) Procalcitonin 0.62 ng/mL H ng/m L (0-0.5) Coronavirus 229E ( PCR) SARS-CoV-2 (PCR) Discharge Plan Discharge Patient Disposition: Placed in Observation Admit Provider: Ally Churchill Clinical Impression: Pneumonia due to 2019 novel coronavirus Coding Level of Care Code ED [facility] [facility] for [facility] Fwd Exam Detailed
[2021-04-23 22:18] LABS: Basophils % 0.5 %; Eosinophils % 0.3 %; Hematocrit 30.3 % (37.0-47.0); Hemoglobin 10.1 g/dL (11.5-15.3); Lymphocytes # 0.8 10^3/uL (0.8-4.8); Lymphocytes % 13.1 %; Mean Corpuscular HGB Conc 33.3 g/dL (30.0-36.0); Mean Corpuscular Volume 92.9 fl (81-99); Mean Platelet Volume 9.8 fL (7.4-10.4); Monocytes # 0.7 10^3/uL (0.2-0.9); Monocytes % 11.2 %; Neutrophils # 4.79 10^3/uL (1.8-7.7); Neutrophils % 74.4 %; Nucleated Red Blood Cells % 0 %; Platelet Count 265 10^3/cmm (130-400); Red Blood Count 3.26 10^6/uL (4.1-5.3); Red Cell Distribution Width 13.1 % (12.1-15.1); White Blood Count 6.4 10^3/uL (4.0-10.0)
[2021-04-23 22:44] LABS: NT Pro B Type Natriuretic Pept 459 pg/mL (0-125); Procalcitonin 0.62 ng/mL (0-0.5)
[2021-04-23 22:49] LABS: D Dimer 1.24 ug/mIFEU (0-0.59)
[2021-04-23 22:53] LABS: Lactic Sepsis W/Reflex 0.9 mmol/L (0.5-2.2)
[2021-04-23 22:55] LABS: Alanine Aminotransferase 11 U/L (0-33); Albumin Level 3.6 g/dL (3.5-5.2); Alkaline Phosphatase 76 IU/L (35-105); Anion Gap 16.4 (5-19); Aspartate Amino Transferase 21 U/L (0-32); Blood Urea Nitrogen 9 mg/dL (6-20); C Reactive Protein 181.4 mg/L (0.0-4.9); Calcium 8.5 mg/dL (8.5-10.5); Carbon Dioxide 23 mmol/L (22-29); Chloride 97 mmol/L (98-107); Globulin 3.3 g/dL (1.3-4.6); Glucose 139 mg/dL (65-115); Osmolality Calculated 277 mOsm/kg (285-295); Potassium 3.4 mmol/L (3.5-5.1); Sodium 133 mmol/L (136-145); Total Bilirubin 0.8 mg/dL (0.15-1.2); Total Protein 6.9 g/dL (6.6-8.7)
--- NOTE | 2021-04-23 23:07 | CTR_ITS ---
PROCEDURE INFORMATION: Exam: CTA Chest With Contrast Exam date and time: 04/23/2021 11:07 PM Age: 55 years old Clinical indication: Pain; Dyspnea; On breathing; Prior surgery; Surgery date: 6+ months; Additional info: Chest pain TECHNIQUE: Imaging protocol: Computed tomographic angiography of the chest with contrast. 3D rendering (Not supervised by radiologist): MIP and/or 3D reconstructed images were created by the technologist. Total images: 880 Radiation optimization: All CT scans at this facility use at least one of these dose optimization techniques: automated exposure control; mA and/or kV adjustment per patient size (includes targeted exams where dose is matched to clinical indication); or iterative reconstruction. Contrast material: OMNI 350; Contrast volume: 95 ml; Contrast route: INTRAVENOUS (IV); COMPARISON: CR (CHEST, ) 04/23/2021 10:11 PM RADIATION DOSE METRICS: Total DLP (mGy-cm): 615.51 FINDINGS: Pulmonary arteries: No visible evidence of pulmonary embolism/pulmonary arterial thrombus. Aorta: The thoracic aorta is nonaneurysmal. No visible intimal flap or dissection. Lungs: Right upper lobe pneumonitis/pneumonia with associated mild atelectasis. Air bronchograms. Pleural spaces: Scant right pleural effusion. Heart: Cardiac size within normal limits. No visible pericardial effusion. No visible coronary artery disease. Lymph nodes: Few marginally prominent middle mediastinal and hilar lymph nodes most likely reactive in nature. Calcified complexes of antecedent granulomatous disease. Gallbladder and bile ducts: Rare tiny gallstone. Kidneys and ureters: Partially imaged nonobstructing calyceal nephrolithiasis equator right kidney measuring 15 mm x 10 mm. Stomach and bowel: Previous gastroplasty. Bones/joints: No visible acute osseous abnormality. Mild scoliotic curvature of the spine. Soft tissues: Unremarkable. Other findings: Obesity. Increased quantum mottle artifact which degrades image quality and detail assessment. CT/CT angio chest PE protcl [id number] IMPRESSION: 1. No visible evidence of pulmonary embolism/pulmonary arterial thrombus. 2. Right upper lobe pneumonitis/pneumonia with associated mild atelectasis. 3. Scant right pleural effusion. 4. Few marginally prominent middle mediastinal and hilar lymph nodes most likely reactive in nature. 5. Other nonurgent/nonemergent findings as detailed in text above.
[2021-04-23] MEDS: iohexol 350 mg/mL 100 mL Btl IV (23:28)
[2021-04-24] VITALS (10 sets, daily range): BP systolic 106–136; BP diastolic 67–83; PULSE 58–83; RESP 17–19; TEMP 36.4–37.3; O2SAT 91–100
[2021-04-24 00:13] LABS: Adenovirus Not Detected (NOT DETECT); Chlamydia Pneumoniae Not Detected (NOT DETECT); Coronavirus 229E,HKU1,NL63,OC4 Not Detected (NOT DETECT); Human Metapneumovirus Not Detected (NOT DETECT); Human Rhinovirus/Enterovirus Not Detected (NOT DETECT); Influenza A Not Detected (NOT DETECT); Influenza A H1 Not Detected (NOT DETECT); Influenza A H1-2009 Not Detected (NOT DETECT); Influenza A H3 Not Detected (NOT DETECT); Influenza B Not Detected (NOT DETECT); Mycoplasma Pneumoniae Not Detected (NOT DETECT); Parainfluenza Virus Type 1 Not Detected (NOT DETECT); Parainfluenza Virus Type 2 Not Detected (NOT DETECT); Parainfluenza Virus Type 3 Not Detected (NOT DETECT); Parainfluenza Virus Type 4 Not Detected (NOT DETECT); Respiratory Syncytial Virus A Not Detected (NOT DETECT); Respiratory Syncytial Virus B Not Detected (NOT DETECT); SARS-COV-2 Detected (NOT DETECT)
[2021-04-24] MEDS: levofloxacin-dextrose 5 % 750 MG/150 ML PREMIX 100 MG IV (00:36)
[2021-04-24] MEDS: dexamethasone 10 mg/mL INJ 6 MG IVP (00:39)
[2021-04-24] MEDS: remdesivir 200 MG in sodium chloride 0.9% (100 ml) 60 ML 100 MG IV (02:07)
--- NOTE | 2021-04-24 02:35 | PM.HP ---
Providers/Chief Complaint Admitting Physician: Ally Churchill MD Primary Care Provider: Linda Castro MD Chief Complaint: flu like sym History of Present Illness Marie Damon is a 55 year old female who presented to the emergency room with increasing cough shortness of breath, general malaise. Symptoms started approximately a week ago with upper respiratory symptoms and cough. She had rapid Covid antigen testing on Saturday that was negative. She has continued to worsen, having nausea, vomiting, often but not always posttussive, changes in stool output. She reports headache, both fevers and low temperatures associated with chills, food not tasting right but not fully losing her sense of taste or smell. She has had headaches across the front of her head. Most recently she started getting short of breath on exertion. 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 She had a pulse oximeter at home and this evening noted her oxygen saturations dropping as low as 70% with exertion. Saturations improved with rest. She has had difficulty keeping fluids down. She denied any chest pain. She has not had any syncope. She came into the emergency room via EMS. Chest x-ray showed right upper lobe pneumonia/pneumonitis. Covid PCR test came back positive. Patient's D-dimer was slightly up. CTA of the chest did not show any PE but showed similar findings to chest x-ray. Here oxygen saturations originally were 98% on arrival here. She was mildly hypertensive, not tachycardic. She was quite ill-appearing however with frequent cough not really productive of much even though sounding wet. She was nauseated and received some Zofran. Inflammatory markers noted CRP of 181, lactic acid of 0.9. proBNP was 459 and procalcitonin was 0.62. She did receive 1 dose of Levaquin in the emergency room. With the exertional hypoxemia combined with her comorbid conditions which include a BMI of 37, diabetes, Crohn's disease, asthma among other medical issues as described below she is being admitted for initiation of remdesivir and steroids and at least overnight monitoring for progressive decline. She is vaccinated having received 2 doses of an mRNA vaccine. She was due for a booster shot in May. She was given her first dose of remdesivir and dexamethasone in the ER. Review of Systems Const: Reports: fever(s), chills, change in appetite (not eating much, hard to keep liquids down), fatigue, malaise and other (low temps) ENMT: Reports: throat pain, nasal congestion, sinus pain (frontal area) and other (things dont taste same but no losf and smell ) Card: Reports: dyspnea on exertion and orthopnea; Denies: chest pain, palpitations, edema or syncope Resp: Reports: dyspnea, productive cough, non-productive cough and wheezing; Denies: pain on inspiration or hemoptysis GI: Reports: nausea, vomiting, change in bowel habits and other (chronic loose stools due to total colectomy); Denies: abdominal pain, hematemesis, constipation, hematochezia or melena : Reports: oliguria; Denies: difficulty voiding Musc: Reports: back pain and joint pain (chronic) Neuro: Reports: headache(s), weakness in extremities (general rather than focal) and dizziness; Denies: numbness in extremities, difficulty walking, difficulty communicating thoughts or involuntary movements Psych: Reports: anxiety Celestino/Lymph: Reports: easy bruising (multiple bruises to legs from placing penelope recently); Denies: easy bleeding Medications/Allergies Home Medications Medication Instructions Recorded Confirmed Last Taken Type Align 10.5 mg PO BEDTIME 06/24/19 03/22/21 07/19/20 History Bydureon 2 mg SUBCUT Q7D 06/24/19 03/22/21 07/20/20 History albuterol sulfate [Ventolin HFA] 2 inh INHALATION BID PRN 06/24/19 03/22/21 07/20/20 History allopurinol 300 mg PO DAILY 06/24/19 03/22/21 07/19/20 History atorvastatin 20 mg PO DAILY 06/24/19 03/22/21 07/20/20 History budesonide-formoterol [Symbicort] 2 puff INHALATION BID 06/24/19 03/22/21 07/20/20 History carica papaya [Papaya Enzyme] 1 tab PO TID PRN 06/24/19 03/22/21 07/19/20 History cyanocobalamin (vitamin B-12) 500 mcg PO DAILY 06/24/19 03/22/21 07/19/20 History diphenoxylate-atropine [Lomotil] 2 tab PO TID 06/24/19 03/22/21 07/18/20 History estradiol [Vivelle-Dot] See Rx Instructions .ROUTE .COMPLEX 06/24/19 03/22/21 07/17/20 History furosemide [Lasix] 20 mg PO DAILY 06/24/19 03/22/21 07/19/20 History hydrocodone-acetaminophen 1 tab PO Q6H PRN 06/24/19 03/22/21 07/19/20 History levothyroxine See Rx Instructions .ROUTE .COMPLEX 06/24/19 03/22/21 07/20/20 History magnesium oxide 250 mg PO BID 06/24/19 03/22/21 07/19/20 History meloxicam 15 mg PO DAILY 06/24/19 03/22/21 07/20/20 History montelukast 10 mg PO BEDTIME 06/24/19 03/22/21 07/20/20 History multivitamin 1 tab PO DAILY 06/24/19 03/22/21 07/20/20 History pantoprazole 40 mg PO BID 06/24/19 03/22/21 07/20/20 History potassium iodide 99 mg PO DAILY 06/24/19 03/22/21 07/20/20 History pseudoephedrine HCl [Sudafed] 30 mg PO Q6H PRN 06/24/19 03/22/21 07/20/20 History ropinirole 2.5 mg PO BEDTIME 06/24/19 03/22/21 07/20/20 History albuterol sulfate 2.5 mg INHALATION Q4H PRN 09/16/19 03/22/21 07/20/20 History metformin 500 mg tablet 500 mg PO DAILY 03/23/20 03/22/21 07/20/20 History metronidazole 500 mg tablet 500 mg PO DAILY tab 03/23/20 03/22/21 07/19/20 History loperamide 2 mg capsule 2 mg PO Q6H PRN 04/05/20 03/22/21 07/19/20 History clobetasol 0.05 % scalp solution 1 applic TOPICAL DAILY #50 ml 05/24/20 03/22/21 07/19/20 Rx triamcinolone acetonide 0.1 % 1 applic TOPICAL BID #30 g 05/24/20 03/22/21 07/20/20 Rx topical ointment baclofen 10 mg tablet 10 mg PO QID PRN 03/22/21 03/22/21 Unknown History paroxetine HCl 10 mg tablet 10 mg PO DAILY 03/22/21 03/22/21 Unknown History Allergies Allergy/AdvReac Type Severity Reaction Status Date / Time amoxicillin Allergy ALGY-Swell Verified 03/22/21 14:00 Lip/Tongue/Throat aripiprazole [From Abilify] Allergy ADR-Shakine Verified 03/22/21 14:00 ss clindamycin Allergy ALGY-Swell Verified 03/22/21 14:00 Lip/Tongue/Throat droperidol Allergy ADR-Anxiety Verified 03/22/21 14:00 pramipexole [From Mirapex] Allergy ADR-Itching Verified 03/22/21 14:00 quetiapine [From Seroquel] Allergy ADR-Anxiety Verified 03/22/21 14:00 sulfamethoxazole Allergy ADR-Swelling Verified 03/22/21 14:00 [From Bactrim] of the Eye sumatriptan [From Imitrex] Allergy ADR-Depress Verified 03/22/21 14:00 ion tramadol [From Ultram] Allergy ADR-Itching Verified 03/22/21 14:00 trimethoprim [From Bactrim] Allergy ADR-Swelling Verified 03/22/21 14:00 of the Eye PFSH Acute PFSH: Medical History (Updated 04/24/21 @ 07:59 by Ally Churchill MD) Asthma, non-allergic non eosinophilic Cholelithiasis Diabetes mellitus, type II Fibromyalgia GERD (gastroesophageal reflux disease) Headache, migraine History of arm fracture History of PFTs 12/03/2019: FEV1/FVC 74%, FEV1 2.65L (88% predicted), FVC 3.58L (95% of predicted), RV normal, DLCO 95%. History of sleep study 2018 - no evidence of sleep apnea or nocturnal hypoxemia History of small bowel obstruction recurrent, has required dilatation of ileoanal anastomosis in the past by Dr Shawn Munroe at [facility] History of stress test 2016 - normal ekg response to lexiscan HLA-B27 positive Hyperlipidemia Hypertension Hypothyroidism Inflammatory bowel disease Patient reports history of ulcerative colitis, resolved s/p total colectomy, with subsequent development of small bowel Crohn's disease on Pentasa and Budesonide Iron deficiency anemia Osteoarthritis Sebopsoriasis Urolithiasis large right renal pelvic stone, calcium oxalate dihydrate/uric acid, treated with chronic Cyra K 30meq tid and allopurinol 300mg daily Uveitis Vitamin D deficiency Surgical History (Updated 04/24/21 @ 05:14 by Ally Churchill MD) History of appendectomy History of closure of ileostomy History of colectomy total with ileoanal anastomosis in form of anal pouch, due to ulcerative colitis History of fasciotomy History of flexible sigmoidoscopy History of hysterectomy History of lithotripsy (~2009) ESWL/ureteroscopy with laser lithotripsy History of nasal septoplasty History of partial gastrectomy History of repair of rotator cuff History of skin graft History of thyroidectomy Family History Mother , AT AGE 68 CAD (coronary artery disease) Stroke Diabetes Father COPD (chronic obstructive pulmonary disease) Degenerative disk disease Arthritis Social History (Updated 04/24/21 @ 05:20 by Ally Churchill MD) Smoking and tobacco status: never smoked Second hand smoke exposure: Yes Alcohol intake: never Substance/Drug Use: never Lives independently: Yes Household members: spouse and other Details: adult autistic son Current occupational status: disabled Current gender identity: Female Vitals/I&O/Wt Last Vital Signs Pulse 80 04/23/21 21:27 Resp 14 04/23/21 22:05 BP 161/72 04/23/21 21:27 Pulse Ox 98 04/23/21 21:27 04/23/21 04/23/21 04/24/21 14:59 22:59 06:59 Intake Total 1000 / 1000 Balance 1000 / 1000 Weight last 48 hrs Weight 106.829 kg Physical Exam Narrative: EXAM NARRATIVE: Constitutional: alert, looks like she does not feel well but able to provide full history HEENT: normocephalic, conjunctiva injected, rhinorrhea, dry membranes Respiratory: scattered wheezes bilaterally, crackles on right, no rhonchi, frequent cough, wet sounding but no sputum production while I was in room, pauses to catch breath before can resume talking after spells Cardiovascular: regular rhythm, no murmurs, no acrocyanosis Abdomen: soft, non tender, positive bowel sounds, multiple surgical scars noted Extremities: trace edema, no calf tenderness apparent Skin: dry, scattered bruises to anterior legs Neuro: face symmetric, speech clear, moves all extremities, extra ocular movements intact Psych: cooperative, normal affect Data : 04/23/21 22:10 04/23/21 22:10 Other Labs: Radiology Impressions Chest X-Ray 04/23/21 21:52 IMPRESSION: Right upper lobe pneumonitis/pneumonia. Chest CTA 04/23/21 23:07 IMPRESSION: 1. No visible evidence of pulmonary embolism/pulmonary arterial thrombus. 2. Right upper lobe pneumonitis/pneumonia with associated mild atelectasis. 3. Scant right pleural effusion. 4. Few marginally prominent middle mediastinal and hilar lymph nodes most likely reactive in nature. 5. Other nonurgent/nonemergent findings as detailed in text above. Laboratory Results D-Dimer 1.24 ug/mIFEU (0-0.59) H 04/23/21 22:10 Calculated Osmolality 277 mOsm/kg (285-295) L 04/23/21 22:10 Lactic Acid 0.9 mmol/L (0.5-2.2) 04/23/21 22:20 Calcium 8.5 mg/dL (8.5-10.5) 04/23/21 22:10 Total Bilirubin 0.8 mg/dL (0.15-1.2) 04/23/21 22:10 AST 21 U/L (0-32) 04/23/21 22:10 ALT 11 U/L (0-33) 04/23/21 22:10 Alkaline Phosphatase 76 IU/L (35-105) 04/23/21 22:10 C-Reactive Protein 181.4 mg/L (0.0-4.9) H 04/23/21 22:10 NT-Pro-B Natriuret Pep 459 pg/mL (0-125) H 04/23/21 22:10 Total Protein 6.9 g/dL (6.6-8.7) 04/23/21 22:10 Albumin 3.6 g/dL (3.5-5.2) 04/23/21 22:10 Globulin 3.3 g/dL (1.3-4.6) 04/23/21 22:10 Procalcitonin 0.62 ng/mL (0-0.5) H 04/23/21 22:10 Coronavirus 229E (PCR) Not detected (NOT DETECT) 04/23/21 21:59 SARS-CoV-2 (PCR) Detected (NOT DETECT) A 04/23/21 21:59 Micro: Microbiology 04/23/21 22:36 Blood Culture - Preliminary Blood SPECIMEN COLLECTED 04/23/21 22:10 Blood Culture - Preliminary Blood SPECIMEN COLLECTED A&P Assessment and plan (1) Pneumonia due to 2019 novel coronavirus: Status: Acute (2) COVID-19 vaccine administered: Status: Chronic (3) Diabetes mellitus, type II: Status: Chronic Qualifiers: Diabetes mellitus termite exterminator helper insulin use: without nursing home use Diabetes mellitus complication status: with neurologic complications Diabetes mellitus complication detail: with polyneuropathy Qualified Code(s): E11.42 - Type 2 diabetes mellitus with diabetic polyneuropathy (4) Inflammatory bowel disease: On Pentasa and budesonide, not on biologic agents Status: Chronic (5) Asthma, non-allergic: Status: Acute (6) Iron deficiency anemia: Present hemoglobin stable by comparison to prior values Status: Chronic Qualifiers: Iron deficiency anemia type: chronic blood loss Qualified Code(s): D50.0 - Iron deficiency anemia secondary to blood loss (chronic) (7) Urolithiasis: Large in the right renal pelvis, generally asymptomatic, calcium oxalate and uric acid, chronically on Cyra K 30 mEq 3 times a day and allopurinol 300 mg a day Status: Chronic Qualifiers: Urinary calculus location: kidney Qualified Code(s): N20.0 - Calculus of kidney (8) Hyperlipidemia: Chronically on statin Status: Chronic (9) Hypertension: Status: Chronic (10) GERD (gastroesophageal reflux disease): Status: Chronic (11) Hypothyroidism: Status: Chronic (12) BMI 37.0-37.9, adult: Status: Acute Additional A&P Information Observation admission presently Initiate dexamethasone and remdesivir Monitor need for oxygen therapy Respiratory therapy to follow Inhalers Check baseline inflammatory markers/labs not yet done Blood cultures were collected CTA no PE D dimer 1.24 Procal 0.62 CRP 181 Lactic acid 0.9 BNP 459 Vitamin C, vitamin D, zinc Lovenox for DVT prophylaxis Will need to watch for any GI blood losses closely, discussed with patient and reviewed risk of clots Sliding scale and likely long acting insuling with steroids on board Asked patient to have someone bring her home Pentasa and Budesonide for use while in hospital Need to get fully clarified list of other home medications and address accordingly Supportive care otherwise Currently anticipate discharge home, possibly with oxygen therapy, however it will ultimately depend on clinical course Discussed with her isolating from family, that family need to get tested or at least monitor for symptoms closely. Her autistic son is being cared for by while she is sick. Findings, concerns and plans, including treatment with Remdesivir were discussed, patient was given an opportunity to ask questions Full code Attestations Medical Necessity Statement*: Anticipate stay greater than 2 midnights in patient with covid. While not yet definitely requiring oxygen, she report exertional hypoxemia at home and has significant elevation in inflammatory markers. With comorbid conditions at high risk of rapid clinical decline. Starting on IV remdesivir, IV steroids and other care/monitoring as described. 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 [facility] Fwd Diagnoses Pneumonia due to 2019 novel coronavirus U07.1; J12.82 COVID-19 vaccine administered Z23 Diabetes mellitus, type II E11.42 Diabetes mellitus nursing home insulin use: without termite exterminator helper use Diabetes mellitus complication status: with neurologic complications Diabetes mellitus complication detail: with polyneuropathy Inflammatory bowel disease K52.9 Asthma, non-allergic J45.909 Iron deficiency anemia D50.0 Iron deficiency anemia type: chronic blood loss Urolithiasis N20.0 Urinary calculus location: kidney Hyperlipidemia E78.5 Hypertension I10 GERD (gastroesophageal reflux disease) K21.9 Hypothyroidism E03.9 BMI 37.0-37.9, adult Z68.37
[2021-04-24] MEDS: acetaminophen 325 mg Tablet 650 MG PO ×2 (05:21→21:41)
[2021-04-24] MEDS: enoxaparin 40 mg/0.4 mL Syringe SUBCUT (05:22)
[2021-04-24 06:44] LABS: Glucose Point of Care 286 mg/dL (70-110)
[2021-04-24 07:19] LABS: Basophils % 0.3 %; Hematocrit 31.1 % (37.0-47.0); Hemoglobin 10.1 g/dL (11.5-15.3); Lymphocytes # 0.4 10^3/uL (0.8-4.8); Mean Corpuscular HGB Conc 32.5 g/dL (30.0-36.0); Mean Corpuscular Hemoglobin 31.4 pg (28.0-34.0); Mean Corpuscular Volume 96.6 fl (81-99); Mean Platelet Volume 10.7 fL (7.4-10.4); Monocytes # 0.3 10^3/uL (0.2-0.9); Monocytes % 4.5 %; Neutrophils # 5.47 10^3/uL (1.8-7.7); Neutrophils % 88.4 %; Nucleated Red Blood Cells % 0 %; Platelet Count 186 10^3/cmm (130-400); Red Blood Count 3.22 10^6/uL (4.1-5.3); Red Cell Distribution Width 13.3 % (12.1-15.1); White Blood Count 6.2 10^3/uL (4.0-10.0)
[2021-04-24 07:21] LABS: INR 1.17 (0.8-1.2)
[2021-04-24 07:22] LABS: Partial Thromboplastin Time 36.4 SECONDS (23.9-36.7)
[2021-04-24 07:28] LABS: Fibrinogen 733 mg/dL (174-498)
[2021-04-24 07:41] LABS: Blood Urea Nitrogen 12 mg/dL (6-20); C Reactive Protein 155.2 mg/L (0.0-4.9); Calcium 8.1 mg/dL (8.5-10.5); Carbon Dioxide 15 mmol/L (22-29); Chloride 98 mmol/L (98-107); Ferritin 221 ng/mL (15-150); Glucose 264 mg/dL (65-115); Osmolality Calculated 279 mOsm/kg (285-295); Sodium 130 mmol/L (136-145)
[2021-04-24 07:42] LABS: Anion Gap 21.7 (5-19); Creatine Phosphokinase 508 U/L (26-192); Potassium 4.7 mmol/L (3.5-5.1)
[2021-04-24 07:43] LABS: Lactate Dehydrogenase 282 U/L (135-214)
[2021-04-24] MEDS: cholecalciferol (vitamin D3) 1,000 unit Tablet 2000 UNIT PO (08:21)
[2021-04-24] MEDS: pantoprazole DR 40 mg Tablet PO ×2 (08:21→17:33)
[2021-04-24] MEDS: ascorbic acid 500 mg Tablet PO ×2 (08:21→17:33)
[2021-04-24] MEDS: zinc gluconate 50 mg Tablet PO (08:21)
[2021-04-24] MEDS: insulin lispro 100 unit/1 mL SUBCUT ×4 (08:45→21:42)
--- NOTE | 2021-04-24 08:46 | PC.PHAR ---
PT STATES SHE TAKES CARE OF HER OWN MEDICATIONS-PT STATES SHE IS NO LONGER TAKING THE LIOTHYRONINE LAST FILLED 03/10/21 90D/S PT STATES SHE HASNT TAKEN IN A MONTH-PT STATES SHE HASNT STARTED USING THE TRULICITY-NOTES ARE MADE IN THE PHARMACY COMMENTS
[2021-04-24 12:23] LABS: Glucose Point of Care 306 mg/dL (70-110)
--- NOTE | 2021-04-24 13:48 | USCV_ITS ---
Marie Damon Age: 55 Gender: F : 1965 Exam Date: 04/24/2021 14:02 Ordering Phys: Bj Dupree MD Technologist: BLUE Exam Location: [facility] [place] Indication: COVID ISOLATION. No hx DVT. No edema. No erythema. HISTORY: COVID ISOLATION. No hx DVT. No edema. No erythema. PROCEDURES: The venous duplex Doppler examination of both lower extremities was performed in the standard fashion. The following venous structures were evaluated: common femoral vein, profunda vein, proximal portion of the greater saphenous vein, superficial femoral vein, and the popliteal vein. In addition, the posterior tibial veins were evaluated. In addition, the peroneal veins were evaluated. Bilaterally, the common femoral, superficial femoral, profunda femoral, popliteal, posterior tibial, greater saphenous veins, and the peroneal veins were identified and interrogated in the standard fashion. These veins were found to be easily compressible with spontaneous blood flow. No evidence of thrombus noted. Serial compression, augmentation maneuvers, and spectral Doppler flow evaluation were performed and were normal. CONCLUSIONS No evidence of right lower extremity DVT. No evidence of left lower extremity DVT. Bereket Voss MD (Electronically Signed) Final Date: 24 April 2021 18:12 S
[2021-04-24] MEDS: benzonatate 100 mg Capsule PO ×2 (14:14→20:14)
[2021-04-24 14:53] LABS: Iron 11 ug/dL (37-145); Percent Saturation 3.8 % (20-50); Total Iron Binding Capacity 284 mcg/dl; Unsaturated Iron Binding 273 ug/dL (112-347)
[2021-04-24 15:02] LABS: Thyroid Stimulating Hormone 1.76 uIU/mL (0.27-4.20)
[2021-04-24] MEDS: ipratropium-albuterol 3 mL Neb INHALATION ×2 (15:45→21:54)
[2021-04-24] MEDS: ferrous gluconate 324 mg Tablet PO (17:33)
[2021-04-24 17:36] LABS: Glucose Point of Care 330 mg/dL (70-110)
[2021-04-24] MEDS: atorvastatin 40 mg Tablet 20 MG PO (20:14)
[2021-04-24] MEDS: apixaban 5 mg Tablet PO (20:14)
[2021-04-24] MEDS: ropinirole 1 mg Tablet 3 MG PO (20:14)
[2021-04-24 20:47] LABS: Glucose Point of Care 310 mg/dL (70-110)
[2021-04-24 20:54] LABS: Add Urine Microscopic? YES; Bilirubin Urine Neg (Negative); Blood Urine 2+ (Negative); Glucose Urine UA 4+ (Normal); Ketones Urine 1+ (Negative); Leukocyte Esterase Urine Negative (Negative); Nitrate Urine Negative (Negative); Protein Urine Neg (Negative); Specific Gravity, Urine 1.015 (1.005-1.030); Urine Appearance Clear (CLEAR); Urine Color Yellow (Yellow); Urobilinogen Urine Norm (Negative); pH Urine 5 (5-7)
[2021-04-24 20:55] LABS: Bacteria Urine 1+ /hpf; RBC Urine 0-4 /hpf (0-2); Squamous Epithelial Cell Urine 15-25 /hpf (0-5); WBC Urine 0-4 /hpf (0-5)
[2021-04-24 20:59] LABS: Potassium, Radom Urine 38 mmol/L; Urine Random Sodium 39 mmol/L
[2021-04-24 21:01] LABS: Urine Random Chloride 16 mmol/L
[2021-04-24] MEDS: budesonide 0.5 mg/2 mL Neb INHALATION (21:54)
[2021-04-24] MEDS: dexamethasone 4 mg/mL INJ 6 MG IVP (23:40)
[2021-04-25] VITALS (13 sets, daily range): BP systolic 108–143; BP diastolic 57–82; PULSE 63–88; RESP 16–18; TEMP 36.6–36.9; O2SAT 93–99
--- NOTE | 2021-04-25 00:51 | PC.NURSE ---
1999 Sitting up in bed. No distress. Reports feels much better today.
--- NOTE | 2021-04-25 00:51 | PC.NURSE ---
2200 Sitting up in bed watching tv. Audible exp wheeze noted bilat. pt coughs and clears. No distress.
--- NOTE | 2021-04-25 00:52 | PC.NURSE ---
0015 Awake in bed. POC discussed. Voices understanding. No requests.
[2021-04-25] MEDS: ipratropium-albuterol 3 mL Neb INHALATION ×4 (02:21→21:02)
--- NOTE | 2021-04-25 02:58 | PC.NURSE ---
0230 sitting up in bed using cell phone. Feeling better. No requests. No resp distress.
[2021-04-25] MEDS: allopurinol 300 mg Tablet PO (05:52)
[2021-04-25] MEDS: remdesivir 100 MG in sodium chloride 0.9% (100 ml) 100 ML IV (05:59)
--- NOTE | 2021-04-25 06:00 | XR_ITS ---
WS: [id number] XR chest 1V portable [id number] REASON FOR EXAM: covid FINDINGS: CT scan of 04/23/2021 demonstrated extensive infiltrative changes in the right upper lobe with l area o f atelectasis. The right lung opacities seen on the current chest x-ray are decreased in volume and density compared to the previous examination of 04/23/2021. Likely this is some resolution of the atelectatic component of the lung opacity. No other interval change or new finding. XR/XR chest 1V portable [id number] IMPRESSION: Decreasing right lung opacity as above.
--- NOTE | 2021-04-25 06:01 | PC.NURSE ---
0600 Resting in bed. Easily awakens. No resp difficulty. Xray at bedside.
[2021-04-25 06:42] LABS: Glucose Point of Care 323 mg/dL (70-110)
[2021-04-25 07:05] LABS: Basophils % 0.1 %; D Dimer 0.86 ug/mIFEU (0-0.59); Hematocrit 29.8 % (37.0-47.0); Hemoglobin 9.7 g/dL (11.5-15.3); Lymphocytes # 0.4 10^3/uL (0.8-4.8); Lymphocytes % 5.7 %; Mean Corpuscular HGB Conc 32.6 g/dL (30.0-36.0); Mean Corpuscular Hemoglobin 30.3 pg (28.0-34.0); Mean Corpuscular Volume 93.1 fl (81-99); Mean Platelet Volume 10.1 fL (7.4-10.4); Monocytes # 0.2 10^3/uL (0.2-0.9); Monocytes % 2.6 %; Neutrophils % 91.1 %; Nucleated Red Blood Cells % 0 %; Platelet Count 269 10^3/cmm (130-400); Red Cell Distribution Width 13.1 % (12.1-15.1); White Blood Count 7.6 10^3/uL (4.0-10.0)
[2021-04-25 07:16] LABS: C Reactive Protein 94.3 mg/L (0.0-4.9); Chol HDL Ratio 1.82 mg/dL (0.0-4.40); Cholesterol 93 mg/dL (0-200); HDL Cholesterol 51 mg/dL (60-100); LDL Cholesterol Calculated 30 mg/dL (50-129); Triglycerides 59 mg/dL (0-150); VLDL Cholestrol Calculation 12 mg/dL (0-30)
[2021-04-25 07:17] LABS: Alanine Aminotransferase 17 U/L (0-33); Albumin Level 3.2 g/dL (3.5-5.2); Alkaline Phosphatase 65 IU/L (35-105); Anion Gap 20.4 (5-19); Aspartate Amino Transferase 32 U/L (0-32); Blood Urea Nitrogen 19 mg/dL (6-20); Calcium 8.9 mg/dL (8.5-10.5); Carbon Dioxide 17 mmol/L (22-29); Chloride 101 mmol/L (98-107); Globulin 3.5 g/dL (1.3-4.6); Glucose 334 mg/dL (65-115); Magnesium 1.9 mg/dL (1.7-2.3); Osmolality Calculated 293 mOsm/kg (285-295); Phosphorus 3.7 mg/dL (2.5-4.5); Potassium 4.4 mmol/L (3.5-5.1); Sodium 134 mmol/L (136-145); Total Bilirubin 0.3 mg/dL (0.15-1.2); Total Protein 6.7 g/dL (6.6-8.7)
[2021-04-25 07:28] LABS: Estmated Average Glucose 194; Hemoglobin A1C 8.4 % (4.0-6.0)
[2021-04-25] MEDS: budesonide 0.5 mg/2 mL Neb INHALATION ×2 (08:40→21:02)
[2021-04-25] MEDS: pantoprazole DR 40 mg Tablet PO ×2 (09:34→18:43)
[2021-04-25] MEDS: levothyroxine 137 mcg Tablet PO (09:34)
[2021-04-25] MEDS: cholecalciferol (vitamin D3) 1,000 unit Tablet 2000 UNIT PO (09:34)
[2021-04-25] MEDS: zinc gluconate 50 mg Tablet PO (09:34)
[2021-04-25] MEDS: benzonatate 100 mg Capsule PO ×3 (09:34→22:12)
[2021-04-25] MEDS: ascorbic acid 500 mg Tablet PO ×2 (09:34→18:42)
[2021-04-25] MEDS: apixaban 5 mg Tablet PO ×2 (09:35→22:12)
[2021-04-25] MEDS: ferrous gluconate 324 mg Tablet PO ×2 (09:35→18:43)
[2021-04-25] MEDS: insulin lispro 100 unit/1 mL SUBCUT ×4 (09:38→22:12)
[2021-04-25] MEDS: sodium chloride 0.9% 1,000 ML 75 ML IV ×2 (10:41→23:06)
[2021-04-25 11:18] LABS: Glucose Point of Care 447 mg/dL (70-110)
[2021-04-25] MEDS: insulin glargine 100 units/1 mL 10 UNIT SUBCUT (11:30)
--- NOTE | 2021-04-25 15:28 | P.PN_ITS ---
Subjective Subjective: Interval history: No acute events overnight. Patient remains hemodynamically stable. Complaining of feeling weak. Remains on room air. Denies any nausea, vomiting, headache. Appetite appropriate. Blood sugars found to be extremely elevated. Vitals/I&O/Wt Last Vital Signs Temp 97.8 F 04/25/21 15:27 Pulse 83 04/25/21 15:27 Resp 16 04/25/21 15:27 BP 126/57 04/25/21 15:27 Pulse Ox 96 04/25/21 15:27 04/25/21 04/25/21 04/25/21 06:59 14:59 22:59 Intake Total 580 / 580 Balance 580 / 580 Weight last 48 hrs Weight 110.903 kg Weight 111.266 kg Weight 106.829 kg Physical Exam Narrative: EXAM NARRATIVE: General: No acute distress, AO x3, weak HEENT: PERRLA, pupils bilaterally equal and reactive Chest: Normal vesicular breath sounds, occasional rhonchi bilaterally, equal good air entry bilaterally CVS: S1-S2 regular, no murmurs, no tachycardia, no gallops, no rubs Abdomen: Soft, nontender, no organomegaly, bowel sounds present Neuro: No focal deficits, no facial deformity, AO x3, power 5/5 in all limbs Data : 04/25/21 06:33 04/25/21 06:33 Micro: Microbiology 04/24/21 20:19 Bacterial Antigens - Final Urine Kidney 04/24/21 20:19 Legionella Urinary Antigen - Final Urine,Clean Catch 04/23/21 22:36 Blood Culture - Preliminary Blood NEGATIVE TO DATE 04/23/21 22:10 Blood Culture - Preliminary Blood NEGATIVE TO DATE A&P Assessment and plan (1) COVID-19: Status: Acute (2) Acute kidney injury: Status: Acute (3) Dehydration: Status: Acute (4) Hypothyroidism: Status: Chronic (5) Hyperlipidemia: Status: Chronic (6) Diabetes mellitus, type II: Status: Chronic Qualifiers: Diabetes mellitus exterminator termite insulin use: without exterminator termite use Diabetes mellitus complication status: with neurologic complications Diabetes mellitus complication detail: with polyneuropathy Qualified Code(s): E11.42 - Type 2 diabetes mellitus with diabetic polyneuropathy Additional A&P Information COVID-19: Mild disease. Continues to remain on room air at rest. Continue with vitamin C, zinc, Decadron, incentive spirometry, flutter valve. Remdesivir to finish a 3-day course. Plan to do home O2 evaluation tomorrow. If remains on room air can discharge otherwise we will continue remdesivir to finish a 5-day course. Type 2 diabetes mellitus: Uncontrolled hyperglycemia. HbA1c 8.4. Start on Lantus 10 units every morning. Increase a.m. insulin sliding scale to high-dose protocol before meals and at bedtime. Dehydration: IV fluids with normal saline at 50 cc/h. Most likely secondary to COVID-19, poor oral intake and uncontrolled type 2 diabetes mellitus. Acute kidney injury: Baseline creatinine normal. Currently 1.2. Most likely secondary dehydration and uncontrolled hyperglycemia. IV fluids as above. Monitor BMP daily. Full code. Carb consistent diet. Lovenox for DVT prophylaxis. Famotidine for daily prophylaxis. Attestations Medical Necessity Statement*: Requires further hospitalization for management of dehydration, uncontrolled hyperglycemia leading to acute kidney injury, mild COVID-19 Time Spent in Patient Care: Greater than 35 minutes (>than 50% of time spent in counselling and/or direct pt care on unit) . 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
[2021-04-25 17:12] LABS: Glucose Point of Care 357 mg/dL (70-110)
[2021-04-25 21:51] LABS: Glucose Point of Care 259 mg/dL (70-110)
[2021-04-25] MEDS: ropinirole 1 mg Tablet 3 MG PO (22:11)
[2021-04-25] MEDS: atorvastatin 40 mg Tablet 20 MG PO (22:11)
[2021-04-25] MEDS: dexamethasone 4 mg/mL INJ 6 MG IVP (23:06)
[2021-04-26] VITALS (10 sets, daily range): BP systolic 109–148; BP diastolic 71–78; PULSE 64–88; RESP 16–18; TEMP 36.2–36.8; O2SAT 95–98
[2021-04-26] MEDS: ipratropium-albuterol 3 mL Neb INHALATION ×2 (02:32→08:01)
[2021-04-26] MEDS: acetaminophen 325 mg Tablet 650 MG PO (03:10)
[2021-04-26] MEDS: guaiFENesin 100 mg/5 mL UDC 10 mL 400 MG PO (03:10)
[2021-04-26] MEDS: baclofen 10 mg Tablet PO (03:11)
--- NOTE | 2021-04-26 03:29 | PC.NURSE ---
0315 called to room to see pt tearful and garding her right inguinal area. Reports this started after coughing. She is afraid she is developing a hernia. PRN meds given for pain and cough. Encouraged to splint when coughing.
[2021-04-26] MEDS: insulin glargine 100 units/1 mL 10 UNIT SUBCUT (05:36)
[2021-04-26] MEDS: allopurinol 300 mg Tablet PO (05:36)
[2021-04-26] MEDS: remdesivir 100 MG in sodium chloride 0.9% (100 ml) 100 ML IV (05:36)
[2021-04-26 06:42] LABS: Basophils % 0.1 %; Hematocrit 29.7 % (37.0-47.0); Hemoglobin 9.4 g/dL (11.5-15.3); Lymphocytes # 0.5 10^3/uL (0.8-4.8); Lymphocytes % 6.2 %; Mean Corpuscular HGB Conc 31.6 g/dL (30.0-36.0); Mean Corpuscular Hemoglobin 30.6 pg (28.0-34.0); Mean Corpuscular Volume 96.7 fl (81-99); Monocytes # 0.2 10^3/uL (0.2-0.9); Monocytes % 2.9 %; Neutrophils # 7.08 10^3/uL (1.8-7.7); Neutrophils % 89.8 %; Nucleated Red Blood Cells % 0 %; Platelet Count 264 10^3/cmm (130-400); Red Blood Count 3.07 10^6/uL (4.1-5.3); Red Cell Distribution Width 13.5 % (12.1-15.1); White Blood Count 7.9 10^3/uL (4.0-10.0)
[2021-04-26 06:42] LABS: Glucose Point of Care 288 mg/dL (70-110)
[2021-04-26 07:02] LABS: Alanine Aminotransferase 23 U/L (0-33); Albumin Level 3.1 g/dL (3.5-5.2); Alkaline Phosphatase 63 IU/L (35-105); Anion Gap 18.6 (5-19); Aspartate Amino Transferase 35 U/L (0-32); Blood Urea Nitrogen 20 mg/dL (6-20); Carbon Dioxide 17 mmol/L (22-29); Chloride 102 mmol/L (98-107); Glucose 300 mg/dL (65-115); Osmolality Calculated 290 mOsm/kg (285-295); Potassium 4.6 mmol/L (3.5-5.1); Sodium 133 mmol/L (136-145); Total Bilirubin 0.3 mg/dL (0.15-1.2); Total Protein 6.1 g/dL (6.6-8.7)
[2021-04-26] MEDS: budesonide 0.5 mg/2 mL Neb INHALATION (08:01)
[2021-04-26] MEDS: benzonatate 100 mg Capsule PO (10:31)
[2021-04-26] MEDS: apixaban 5 mg Tablet PO (10:32)
[2021-04-26] MEDS: ferrous gluconate 324 mg Tablet PO (10:32)
[2021-04-26] MEDS: ascorbic acid 500 mg Tablet PO (10:32)
[2021-04-26] MEDS: zinc gluconate 50 mg Tablet PO (10:32)
[2021-04-26] MEDS: pantoprazole DR 40 mg Tablet PO (10:32)
[2021-04-26] MEDS: cholecalciferol (vitamin D3) 1,000 unit Tablet 2000 UNIT PO (10:32)
[2021-04-26] MEDS: insulin lispro 100 unit/1 mL SUBCUT (10:33)
--- NOTE | 2021-04-26 10:58 | PC.CHAP ---
Pastoral Care Encounter/Spiritual Assessment Type of Contact [] Declined digital research analyst visit [] Patient/Family/Request visit [] Outpatient visit [] Follow-up visit [] Physician referral [] Code/Alert [x] Routine visit [] Staff referral [] Actively dying [] Patient sleeping [] Family support [] [] Out of room [] Palliative care [] [] Receiving care in room [] Pre-surgical visit [] Trauma [] Long length of stay [] ICU visit [x] Other: Relational/Emotional Strength [] Patient feels connected with others/family/visitors/staff [] Distress [] Loneliness/isolation [] Abandonment Spirituality of Patient [] Person of Joanne [] Attends Yazdanism of their Joanne [] Believes in Prayer [] Reads Bible or Nondenominational materials [] There are Spiritual issues to be addressed Tearoom Host Interventions [] Prayer [] Active listening [] Non-anxious presence [] Spiritual/emotional support [] Crisis/trauma care [] Spiritual counseling [] Bereavement support [] Provided bereavement packet [] Provided Bible/devotional materials [] Provided toy/stuffed animal, coloring book to patient or family member [] Provided Communion [] Anointing/[place] [] Salvation [] Completed spiritual assessment [] Other: Impact on Illness or Injury [] Angry [] Fearful [] Anxious [] Often cries [] Exhaustion [] Unable to work [] Unable to attend zoroastrianism [] Unable to walk/stand [] Unable to read [] Unable to drive [] Unable to eat/drink [] Unable to sleep [] Unable to be with family [] Patient intubated [] Other: Summary Time spent with patient
[2021-04-26 11:03] LABS: Glucose Point of Care 375 mg/dL (70-110)
[2021-04-26 12:02] LABS: Glucose Point of Care 326 mg/dL (70-110)
--- NOTE | 2021-04-26 12:21 | P.DS_ITS ---
Discharge Providers Date of Admission: 04/24/21 01:58 Date of Discharge: April 26, 2021 Attending Provider at Admission: Ally Churchill MD Attending Provider at Discharge: Bj Dupree MD Primary Care Provider: Linda Castro MD Diagnoses at Discharge Discharge Diagnosis (1) COVID-19: Status: Acute (2) Acute kidney injury: Status: Acute (3) Dehydration: Status: Acute (4) Hypothyroidism: Status: Chronic (5) Hyperlipidemia: Status: Chronic (6) Diabetes mellitus, type II: Status: Chronic Qualifiers: Diabetes mellitus group home insulin use: without exterminator use Diabetes mellitus complication status: with neurologic complications Diabetes mellitus complication detail: with polyneuropathy Qualified Code(s): E11.42 - Type 2 diabetes mellitus with diabetic polyneuropathy Reason for Visit Reason for Visit: flu like sym Hospital Course Hospital Course History as per H&P: Marie Damon is a 55 year old female who presented to the emergency room with increasing cough shortness of breath, general malaise. Symptoms started approximately a week ago with upper respiratory symptoms and cough. She had rapid Covid antigen testing on Saturday that was negative. She has continued to worsen, having nausea, vomiting, often but not always posttussive, changes in stool output. She reports headache, both fevers and low temperatures associated with chills, food not tasting right but not fully losing her sense of taste or smell. She has had headaches across the front of her head. Most recently she started getting short of breath on exertion. 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 She had a pulse oximeter at home and this evening noted her oxygen saturations dropping as low as 70% with exertion. Saturations improved with rest. She has had difficulty keeping fluids down. She denied any chest pain. She has not had any syncope. She came into the emergency room via EMS. Chest x-ray showed right upper lobe pneumonia/pneumonitis. Covid PCR test came back positive. Patient's D-dimer was slightly up. CTA of the chest did not show any PE but showed similar findings to chest x-ray. Here oxygen saturations originally were 98% on arrival here.She is vaccinated having received 2 doses of an mRNA vaccine. She was due for a booster shot in May. Hospital course: With the exertional hypoxemia combined with her comorbid conditions which include a BMI of 37, diabetes, Crohn's disease, asthma among other medical issues as described below she is being admitted for initiation of remdesivir and steroids and at least overnight monitoring for progressive decline. On admission she was also found to be in acute kidney injury secondary dehydration for which she was started on IV fluids. During hospitalization she continued to have elevated blood sugars for which her insulin was adjusted. She was never in DKA. Patient finished 3-day course of remdesivir. Home O2 evaluation was done prior to discharge and she did not require any oxygen. Patient has been having occasional episode of cough because of which she has developed a possible hernia at her previous colostomy site. Patient has been having regular bowel movements. She has been discharged in hemodynamically stable condition with following her devices. Advised to continue using Eliquis which is a blood thinner for next 10 days. Advised to continue working with incentive spirometry and flutter valve while at home. Advised to continue taking dexamethasone 4 mg daily for next 10 days. Advised to follow-up with his primary care provider within next 7 to 10 days and surgeon within the next 2 weeks for possible hernia at ileostomy site. Advised to continue following social distancing and isolation protocol for next 10 days. Advised to come back to the ER if fever of more than 101 Fahrenheit, more difficulty breathing than usual or requiring higher oxygen supplementation. Physical Exam Narrative: EXAM NARRATIVE: General: No acute distress, AO x3, weak HEENT: PERRLA, pupils bilaterally equal and reactive Chest: Normal vesicular breath sounds, occasional rhonchi bilaterally, equal good air entry bilaterally CVS: S1-S2 regular, no murmurs, no tachycardia, no gallops, no rubs Abdomen: Soft, nontender, no organomegaly, bowel sounds present Neuro: No focal deficits, no facial deformity, AO x3, power 5/5 in all limbs Discharge Data Data Completed and Pending: Completed Studies During Hospitalization Category Date Time Status CT angio chest PE protcl [id number] Urge nt Cat Scan 04/23/21 23:07 Completed XR chest 1V mishel ble [id number] Q48H Exams 04/25/21 06:00 Completed XR chest 1V mishel ble [id number] Stat Exams 04/23/21 21:52 [place] [id number] Urgent Ultrasound 04/24/21 13:48 Completed Pending at discharge Category Date Time Status XR chest 1V mishel ble [id number] Q48H Exams 04/27/21 06:00 Ordered XR chest 1V mishel ble [id number] Q48H Exams 04/29/21 06:00 Ordered Blood Culture Sta t Lab 04/23/21 22:36 Results C Reactive Protei n Q48H Lab 04/27/21 04:00 Ordered D Dimer Q48H Lab 04/27/21 04:00 Ordered Labs from last 24 hours 04/26/21 04/26/21 04/26/21 11:58 10:54 06:40 WBC RBC Hgb Hct MCV MCH MCHC RDW Plt Count MPV Neut % (Auto) Lymph % (Auto) Christian % (Auto) Eos % (Auto) Baso % (Auto) Neut # (Auto) Lymph # (Auto) Christian # (Auto) Eos # (Auto) Baso # (Auto) Nucleated RBC % (a uto) Nucleated RBCs # Sodium Potassium Chloride Carbon Dioxide Anion Gap BUN Creatinine GFR Calculation Glucose POC Glucose 326 H 375 H 288 H Calculated Osmolal ity Calcium Total Bilirubin AST ALT Alkaline Phosphata se Total Protein Albumin Globulin 04/26/21 04/26/21 04/25/21 05:43 05:35 21:42 WBC 7.9 RBC 3.07 L Hgb 9.4 L Hct 29.7 L MCV 96.7 MCH 30.6 MCHC 31.6 RDW 13.5 Plt Count 264 MPV 10.0 Neut % (Auto) 89.8 Lymph % (Auto) 6.2 Christian % (Auto) 2.9 Eos % (Auto) 0.0 Baso % (Auto) 0.1 Neut # (Auto) 7.08 Lymph # (Auto) 0.5 L Christian # (Auto) 0.2 Eos # (Auto) 0.0 Baso # (Auto) 0.0 Nucleated RBC % (a uto) 0 Nucleated RBCs # 0.0 Sodium 133 L Potassium 4.6 Chloride 102 Carbon Dioxide 17 L Anion Gap 18.6 BUN 20 Creatinine 1.1 H GFR Calculation 52.0 L Glucose 300 H POC Glucose 259 H Calculated Osmolal ity 290 Calcium 8.0 L Total Bilirubin 0.3 AST 35 H ALT 23 Alkaline Phosphata se 63 Total Protein 6.1 L Albumin 3.1 L Globulin 3.0 04/25/21 16:48 WBC RBC Hgb Hct MCV MCH MCHC RDW Plt Count MPV Neut % (Auto) Lymph % (Auto) Christian % (Auto) Eos % (Auto) Baso % (Auto) Neut # (Auto) Lymph # (Auto) Christian # (Auto) Eos # (Auto) Baso # (Auto) Nucleated RBC % (a uto) Nucleated RBCs # Sodium Potassium Chloride Carbon Dioxide Anion Gap BUN Creatinine GFR Calculation Glucose POC Glucose 357 H Calculated Osmolal ity Calcium Total Bilirubin AST ALT Alkaline Phosphata se Total Protein Albumin Globulin Addt'l Data from Hospital Stay: Radiology Impressions Chest CTA 04/23/21 23:07 IMPRESSION: 1. No visible evidence of pulmonary embolism/pulmonary arterial thrombus. 2. Right upper lobe pneumonitis/pneumonia with associated mild atelectasis. 3. Scant right pleural effusion. 4. Few marginally prominent middle mediastinal and hilar lymph nodes most likely reactive in nature. 5. Other nonurgent/nonemergent findings as detailed in text above. Chest X-Ray 04/25/21 06:00 IMPRESSION: Decreasing right lung opacity as above. Laboratory Results WBC 7.9 10^3/uL (4.0- 10.0) 04/26/21 05:43 RBC 3.07 10^6/uL (4.1 -5.3) L 04/26/21 05:43 Hgb 9.4 g/dL (11.5-15 .3) L 04/26/21 05:43 Hct 29.7 % (37.0-47.0 ) L 04/26/21 05:43 MCV 96.7 fl (81-99) 04/26/21 05:43 MCH 30.6 pg (28.0-34. 0) 04/26/21 05:43 MCHC 31.6 g/dL (30.0-3 6.0) 04/26/21 05:43 RDW 13.5 % (12.1-15.1 ) 04/26/21 05:43 Plt Count 264 10^3/cmm (130 -400) 04/26/21 05:43 MPV 10.0 fL (7.4-10.4 ) 04/26/21 05:43 Neut % (Auto) 89.8 % 04/26/21 05:43 Lymph % (Auto) 6.2 % 04/26/21 05:43 Christian % (Auto) 2.9 % 04/26/21 05:43 Eos % (Auto) 0.0 % 04/26/21 05:43 Baso % (Auto) 0.1 % 04/26/21 05:43 Neut # (Auto) 7.08 10^3/uL (1.8 -7.7) 04/26/21 05:43 Lymph # (Auto) 0.5 10^3/uL (0.8- 4.8) L 04/26/21 05:43 Christian # (Auto) 0.2 10^3/uL (0.2- 0.9) 04/26/21 05:43 Eos # (Auto) 0.0 10^3/uL (0.0- 0.8) 04/26/21 05:43 Baso # (Auto) 0.0 10^3/uL (0.0- 0.1) 04/26/21 05:43 Nucleated RBC % (a uto) 0 % 04/26/21 05:43 Nucleated RBCs # 0.0 /100WBC 04/26/21 05:43 PT 15.20 SECONDS (12 .1-14.9) H 04/24/21 06:56 INR 1.17 (0.8-1.2) 04/24/21 06:56 APTT 36.4 SECONDS (23. 9-36.7) 04/24/21 06:56 Fibrinogen 733 mg/dL (174-49 8) H 04/24/21 06:56 D-Dimer 0.86 ug/mIFEU (0- 0.59) H 04/25/21 06:33 Sodium 133 mmol/L (136-1 45) L 04/26/21 05:35 Potassium 4.6 mmol/L (3.5-5 .1) 04/26/21 05:35 Chloride 102 mmol/L (98-10 7) 04/26/21 05:35 Carbon Dioxide 17 mmol/L (22-29) L 04/26/21 05:35 Anion Gap 18.6 (5-19) 04/26/21 05:35 BUN 20 mg/dL (6-20) 04/26/21 05:35 Creatinine 1.1 mg/dL (0.5-0. 9) H 04/26/21 05:35 GFR Calculation 52.0 mL/min (90-1 30) L 04/26/21 05:35 Glucose 300 mg/dL (65-115 ) H 04/26/21 05:35 POC Glucose 326 mg/dL (70-110 ) H 04/26/21 11:58 Estimat Average Gl ucose 194 04/25/21 06:33 Hemoglobin A1c 8.4 % (4.0-6.0) H 04/25/21 06:33 Calculated Osmolal ity 290 mOsm/kg (285- 295) 04/26/21 05:35 Lactic Acid 0.9 mmol/L (0.5-2 .2) 04/23/21 22:20 Calcium 8.0 mg/dL (8.5-10 .5) L 04/26/21 05:35 Phosphorus 3.7 mg/dL (2.5-4. 5) 04/25/21 06:33 Magnesium 1.9 mg/dL (1.7-2. 3) 04/25/21 06:33 Iron 11 ug/dL (37-145) L 04/23/21 22:10 TIBC 284 mcg/dl 04/23/21 22:10 % Saturation 3.8 % (20-50) L 04/23/21 22:10 Unsat Iron Binding 273 ug/dL (112-34 7) 04/23/21 22:10 Ferritin 221 ng/mL (15-150 ) H 04/24/21 06:56 Total Bilirubin 0.3 mg/dL (0.15-1 .2) 04/26/21 05:35 AST 35 U/L (0-32) H 04/26/21 05:35 ALT 23 U/L (0-33) 04/26/21 05:35 Alkaline Phosphata se 63 IU/L (35-105) 04/26/21 05:35 Lactate Dehydrogen ase 282 U/L (135-214) H 04/24/21 06:56 Creatine Kinase 508 U/L (26-192) H* 04/24/21 06:56 C-Reactive Protein 94.3 mg/L (0.0-4. 9) H 04/25/21 06:33 NT-Pro-B Natriuret Pep 459 pg/mL (0-125) H 04/23/21 22:10 Total Protein 6.1 g/dL (6.6-8.7 ) L 04/26/21 05:35 Albumin 3.1 g/dL (3.5-5.2 ) L 04/26/21 05:35 Globulin 3.0 g/dL (1.3-4.6 ) 04/26/21 05:35 Triglycerides 59 mg/dL (0-150) 04/25/21 06:33 Cholesterol 93 mg/dL (0-200) 04/25/21 06:33 LDL Cholesterol, C alc 30 mg/dL (50-129) L 04/25/21 06:33 Total VLDL Cholest maritza 12 mg/dL (0-30) 04/25/21 06:33 HDL Cholesterol 51 mg/dL (60-100) L 04/25/21 06:33 Cholesterol/HDL Ra kelvin 1.82 mg/dL (0.0-4 .40) 04/25/21 06:33 Procalcitonin 0.40 ng/mL (0-0.5 ) 04/25/21 06:33 TSH 1.76 uIU/mL (0.27 -4.20) 04/24/21 06:56 Urine Color Yellow (Yellow) 04/24/21 20:19 Urine Appearance Clear (CLEAR) 04/24/21 20:19 Urine pH 5 (5-7) 04/24/21 20:19 Ur Specific Gravit y 1.015 (1.005-1.0 30) 04/24/21 20:19 Urine Protein Neg (Negative) 04/24/21 20:19 Urine Glucose (UA) 4+ (Normal) H 04/24/21 20:19 Urine Ketones 1+ (Negative) H 04/24/21 20:19 Urine Blood 2+ (Negative) H 04/24/21 20:19 Urine Nitrate Negative (Negati ve) 04/24/21 20:19 Urine Bilirubin Neg (Negative) 04/24/21 20:19 Urine Urobilinogen Norm mg/dL (Negat tigist) 04/24/21 20:19 Ur Leukocyte Shannon ase Negative (Negati ve) 04/24/21 20:19 Urine RBC 0-4 /hpf (0-2) H 04/24/21 20:19 Urine WBC 0-4 /hpf (0-5) H 04/24/21 20:19 Ur Squamous Epith Cells 15-25 /hpf (0-5) H 04/24/21 20:19 Amorphous Sediment Not Reportable 04/24/21 20:19 Urine Bacteria 1+ /hpf (NONE) H 04/24/21 20:19 Ur Random Sodium 39 mmol/L 04/24/21 20:19 Ur Random Potassiu m 38 mmol/L 04/24/21 20:19 Ur Random Chloride 16 mmol/L 04/24/21 20:19 Coronavirus 229E ( PCR) Not detected (NO T DETECT) 04/23/21 21:59 SARS-CoV-2 (PCR) Detected (NOT DE TECT) A 04/23/21 21:59 Vitals: Last Vital Signs Temp 98.2 F 04/26/21 11:53 Pulse 68 04/26/21 11:53 Resp 16 04/26/21 11:53 BP 119/72 04/26/21 11:53 Pulse Ox 96 04/26/21 11:58 Discharge Plan Discharge Patient Disposition: Home Condition: Stable Prescriptions: New guaifenesin 100 mg/5 mL Liquid 400 mg PO Q4H PRN (Reason: Cough) 10 Days Qty: 100 RF: 0 Vitamin C 500 mg Tablet 500 mg PO BID Qty: 20 RF: 0 benzonatate 100 mg Capsule 100 mg PO TID Qty: 15 RF: 0 zinc gluconate 50 mg Tablet 50 mg PO DAILY Qty: 14 RF: 0 ferrous gluconate 324 mg (37.5 mg iron) Tablet 324 mg PO BIDWM 30 Days Qty: 60 RF: 0 Eliquis 5 mg Tablet 5 mg PO BID@0900,2100 10 Days Qty: 20 RF: 0 dexamethasone 4 mg tablet 4 mg PO DAILY Qty: 7 RF: 0 docusate sodium 250 mg capsule 250 mg PO DAILY Qty: 20 RF: 0 Continued baclofen 10 mg tablet 10 mg PO TID PRN (Reason: Muscle Spasm) RF: 0 albuterol sulfate 2.5 mg /3 mL (0.083 %) solution for nebulization 2.5 mg INHALATION Q6H PRN (Reason: Wheezing) RF: 0 methocarbamol 500 mg tablet 500 mg PO BID PRN (Reason: Muscle Spasm) RF: 0 levothyroxine 137 mcg tablet See Rx Instructions .ROUTE .COMPLEX RF: 0 ropinirole 3 mg tablet 3 mg PO BEDTIME RF: 0 hydroxyzine HCl 50 mg tablet 50 mg PO BEDTIME RF: 0 budesonide 3 mg capsule,delayed,extend.release 9 mg PO QAM RF: 0 paroxetine HCl 40 mg tablet 40 mg PO BEDTIME RF: 0 metformin 500 mg tablet extended release 24 hr 1,000 mg PO BID RF: 0 Pentasa 500 mg capsule, extended release 500 mg PO QID RF: 0 potassium gluconate 595 mg (99 mg) Tablet 595 mg PO TID RF: 0 Trulicity 0.75 mg/0.5 mL pen injector 0.75 mg SUBCUT Q7D RF: 0 Bydureon BCise 2 mg/0.85 mL auto-injector 2 mg SUBCUT Q7D RF: 0 triamcinolone acetonide 0.1 % ointment 1 applic topical BID PRN (Reason: UNKNOWN) RF: 0 clobetasol 0.05 % solution See Rx Instructions .ROUTE .COMPLEX RF: 0 multivitamin Tablet 1 tab PO DAILY RF: 0 carica papaya [Papaya Enzyme] Tablet 1 tab PO TID PRN (Reason: PRN) RF: 0 meloxicam 15 mg Tablet 15 mg PO DAILY RF: 0 estradiol [Vivelle-Dot] 0.1 mg/24 hr Patch Semiweekly See Rx Instructions .ROUTE .COMPLEX RF: 0 diphenoxylate-atropine [Lomotil] 2.5-0.025 mg Tablet 2 tab PO QID RF: 0 hydrocodone-acetaminophen 10-325 mg Tablet 1 tab PO Q6H PRN (Reason: Pain) RF: 0 cyanocobalamin (vitamin B-12) 500 mcg Tablet 500 mcg PO DAILY RF: 0 pantoprazole 40 mg Tablet,Delayed Release (Dr/Ec) 40 mg PO BID RF: 0 pseudoephedrine HCl [Sudafed] 30 mg Tablet 30 mg PO Q8H PRN (Reason: Congestion) RF: 0 montelukast 10 mg Tablet 10 mg PO BEDTIME RF: 0 allopurinol 300 mg Tablet 300 mg PO QAM RF: 0 furosemide [Lasix] 20 mg Tablet 20 mg PO QAM RF: 0 albuterol sulfate [Ventolin HFA] 90 mcg/actuation Hfa Aerosol Inhaler 2 inh INHALATION BID PRN (Reason: Shortness Of Breath) RF: 0 magnesium oxide 250 mg magnesium Tablet 250 mg PO TID RF: 0 budesonide-formoterol [Symbicort] 160-4.5 mcg/actuation Hfa Aerosol Inhaler 2 puff INHALATION BID RF: 0 Align 10.5 mg (10 million cell) Tablet,Chewable 10.5 mg PO BEDTIME RF: 0 atorvastatin 20 mg Tablet 20 mg PO BEDTIME RF: 0 Discharge Orders: Discharge Order (Routine); Ordered 04/26/21 Ordered By: Bj Dupree Referrals: Linda Castro MD [Primary Care Provider] - Ally Churchill MD [Physician] - 7-10 days Shiv Noguera MD [Physician] - 2 weeks (Hernia at ileostomy site) Discharge Diet: Cardiac and Diabetic Discharge Activity: Resume usual activity Patient Instructions: Opioid Safety Activity Restrictions/Additional Instructions: Advised to continue using Eliquis which is a blood thinner for next 10 days. Advised to continue working with incentive spirometry and flutter valve while at home. Advised to continue taking dexamethasone 4 mg daily for next 10 days. Advised to follow-up with his primary care provider within next 7 to 10 days and surgeon within the next 2 weeks for possible hernia at ileostomy site. Advised to continue following social distancing and isolation protocol for next 10 days. Advised to come back to the ER if fever of more than 101 Fahrenheit, more difficulty breathing than usual or requiring higher oxygen supplementation. Discharge Attestations Time Spent in Discharge Care*: greater than 30 min Specific Discharge Activities: educating patient, discussing with pcp/other providers, discussing with disease case manager/social workers/dc planners, documenting/other paperwork and evaluating patient/reviewing data Status at Discharge: Cognitive status at discharge: cognitively intact , Behavioral status at discharge: cooperative , Functional status at discharge: independent ambulation Overall status at discharge: patient is back to baseline Quality Metrics Clinical Quality Measures During this hospital stay, did patient experience: None Coding Level of Care Code Acute [facility] DC note Diagnoses COVID-19 U07.1 Acute kidney injury N17.9 Dehydration E86.0 Hypothyroidism E03.9 Hyperlipidemia E78.5 Diabetes mellitus, type II E11.42 Diabetes mellitus exterminator insulin use: without group home use Diabetes mellitus complication status: with neurologic complications Diabetes mellitus complication detail: with polyneuropathy
== END 2021-04-26 14:50 | disposition home or self-care (01) | DRG 177 ==
LOC: ER 04-24 00:31 → MEDSURG 04-24 02:23
PROVIDERS: Admitting Provider Hospitalist; Emergency Provider Emergency Medicine; PCP Internal Medicine; Visit Provider Student in an Organized Health Care Education/Training Program
DX: U07.1 COVID-19 (principal); J12.82 Pneumonia due to coronavirus disease 2019; K50.90 Crohn's disease, unspecified, without complications; N17.9 Acute kidney failure, unspecified; J45.909 Unspecified asthma, uncomplicated; E11.65 Type 2 diabetes mellitus with hyperglycemia; E11.42 Type 2 diabetes mellitus with diabetic polyneuropathy; M79.7 Fibromyalgia; K21.9 Gastro-esophageal reflux disease without esophagitis; I10 Essential (primary) hypertension; Z90.3 Acquired absence of stomach [part of]; E89.0 Postprocedural hypothyroidism; E78.5 Hyperlipidemia, unspecified; D50.0 Iron deficiency anemia secondary to blood loss (chronic); M19.90 Unspecified osteoarthritis, unspecified site; Z79.890 Hormone replacement therapy; Z79.891 Long term (current) use of opiate analgesic; Z79.899 Other long term (current) drug therapy; Z79.84 Long term (current) use of oral hypoglycemic drugs; Z79.51 Long term (current) use of inhaled steroids; E86.0 Dehydration; N20.9 Urinary calculus, unspecified
CPT/HCPCS: 36415; 36416; 71045; 71275; 80048; 80053; 80061; 81001; 82436; 82550; 82728; 82962; 83036; 83540; 83550; 83605; 83615; 83735; 83880; 84100; 84133; 84145; 84300; 84443; 85025; 85378; 85384; 85610; 85730; 86140; 86403; 87040; 87449; 87635; 87641; 93970; 94640; 94664; 96365; 96367; 96372; 96375; 99285; J1100; J1650; J1815 ×2; J1956; J2270; J2405; J7030; J7626; Q9967

== ENCOUNTER → 2021-08-07 09:14 | Day surgery (SDC) | payer MEDICARE, MEDICAID, SELFPAY ==
[2021-08-07] MEDS: ferric carboxy (IVPB) 750 MG in sodium chloride 0.9% (100 ml) 100 ML 345 MG IV (09:28)
[2021-08-07 09:39] VITALS: BP 179/100; PULSE 92; RESP 18; TEMP 36.1; O2SAT 100
== END ==
PROVIDERS: PCP Internal Medicine; Visit Provider Internal Medicine
DX: D50.9 Iron deficiency anemia, unspecified (principal)
CPT/HCPCS: 96365; J1439

== ENCOUNTER → 2021-08-14 09:00 | Day surgery (SDC) | payer MEDICARE, MEDICAID, SELFPAY ==
[2021-08-14] MEDS: ferric carboxy (IVPB) 750 MG in sodium chloride 0.9% (100 ml) 100 ML 345 MG IV (09:23)
[2021-08-14 09:28] VITALS: BP 173/83; PULSE 90; RESP 18; TEMP 36.1; O2SAT 99
== END ==
PROVIDERS: PCP Internal Medicine; Visit Provider Internal Medicine
DX: D50.9 Iron deficiency anemia, unspecified (principal)
CPT/HCPCS: 96365; J1439

== ENCOUNTER 2021-11-02 12:04 | Emergency (ER) | payer MEDICARE, MEDICAID, SELFPAY ==
[2021-11-02 13:26] VITALS: BP 109/70; PULSE 88; RESP 16; TEMP 37.7; O2SAT 94; BMI 39.4
[2021-11-02 14:07] VITALS: BP 109/70; PULSE 88; RESP 16; O2SAT 94
--- NOTE | 2021-11-02 14:07 | XRR_ITS ---
PROCEDURE INFORMATION: Exam: XR Chest Exam date and time: 11/02/2021 2:18 PM Age: 56 years old Clinical indication: Other: Weakness TECHNIQUE: Imaging protocol: Radiologic exam of the chest. Views: 1 view. COMPARISON: CR XR chest 1V portable [id number] 04/25/2021 6:00 AM FINDINGS: Lungs: Continued loss of volume in the right upper lobe with elevated right minor fissure. Pleural spaces: See Lungs finding. Heart/Mediastinum: Lobulated soft tissue density in the right paratracheal and right mediastinal area consistent with atelectasis and/or adenopathy and/or mass. Bones/joints: Postoperative metallic fixation of the cervical spine with or without metallic artifact. Other findings: Postoperative changes over the right shoulder. XR/XR chest 1V portable [id number] IMPRESSION: 1. Continued loss of volume in the right upper lobe with elevated right minor fissure. 2. Lobulated soft tissue density in the right paratracheal and right mediastinal area consistent with atelectasis and/or adenopathy and/or mass.
--- NOTE | 2021-11-02 14:08 | W.ED.WEAKNES ---
Documented by User: ROGERIO Mcgraw 11/02/21 20:57 HPI - Weakness General: Chief complaint: Weakness Stated complaint: N/V/D Chills Time Seen by Provider: 11/02/21 13:40 History of Present Illness: Patient is a 56-year-old female comes to the ED with nausea vomiting and weakness. Symptoms started yesterday evening. She started developing the chills, body aches, nausea/vomiting and watery diarrhea. She has not been able to keep any food or fluids down since onset of symptoms. Today she woke up and felt very weak and had a fall in the house where she tripped but only fell down onto her knees and denies any head trauma or loss of consciousness. Denies any pain from fall. She feels like her mouth is really dry and she is really thirsty. Associated symptoms: Reports chills, nausea and vomiting; Denies chest pain, dysuria, fever(s) or headache(s) Review of Systems Const: Reports: chills, body aches and fatigue; Denies: fever(s) Eyes: Denies: change in vision or eye discomfort ENMT: Denies: throat pain, odynophagia, nasal discharge or nasal congestion Card: Denies: chest pain, palpitations, edema, swelling of feet/ankles, dyspnea on exertion or orthopnea Resp: Denies: dyspnea, productive cough or non-productive cough GI: Reports: nausea, vomiting and diarrhea; Denies: abdominal pain, constipation or hematochezia : Denies: flank pain, dysuria or hematuria Musc: Denies: neck pain, back pain or extremity swelling Skin/Breast: Denies: rash or new lesions Neuro: Denies: headache(s), numbness in extremities or weakness in extremities PFS ED PFSH: Medical History Asthma, non-allergic non eosinophilic BMI 37.0-37.9, adult Cholelithiasis COVID-19 vaccine administered 2 mRNA doses (3rd dose/booster due in 05/2021) Diabetes mellitus, type II Fibromyalgia GERD (gastroesophageal reflux disease) Headache, migraine History of arm fracture History of PFTs 12/03/2019: FEV1/FVC 74%, FEV1 2.65L (88% predicted), FVC 3.58L (95% of predicted), RV normal, DLCO 95%. History of sleep study 2018 - no evidence of sleep apnea or nocturnal hypoxemia History of small bowel obstruction recurrent, has required dilatation of ileoanal anastomosis in the past by Dr Shawn Munroe at [facility] History of stress test 2016 - normal ekg response to lexiscan HLA-B27 positive Hyperlipidemia Hypertension Hypothyroidism Inflammatory bowel disease Patient reports history of ulcerative colitis, resolved s/p total colectomy, with subsequent development of small bowel Crohn's disease on Pentasa and Budesonide Iron deficiency anemia Osteoarthritis Sebopsoriasis Urolithiasis large right renal pelvic stone, calcium oxalate dihydrate/uric acid, treated with chronic Cyra K 30meq tid and allopurinol 300mg daily Uveitis Vitamin D deficiency Surgical History History of appendectomy History of closure of ileostomy History of colectomy total with ileoanal anastomosis in form of anal pouch, due to ulcerative colitis History of fasciotomy History of flexible sigmoidoscopy History of hysterectomy History of lithotripsy (~2009) ESWL/ureteroscopy with laser lithotripsy History of nasal septoplasty History of partial gastrectomy History of repair of rotator cuff History of skin graft History of thyroidectomy Family History Mother , AT AGE 68 CAD (coronary artery disease) Stroke Diabetes Father COPD (chronic obstructive pulmonary disease) Degenerative disk disease Arthritis Social History Smoking and tobacco status: never smoked Second hand smoke exposure: Yes Alcohol intake: never Lives independently: Yes Household members: spouse and other Details: adult autistic son Current occupational status: disabled Current gender identity: Female Physical Exam Const: COMMON NORMALS: no acute distress, patient oriented x3 and alert GENERAL APPEARANCE: cooperative HENMT: COMMON NORMALS: normocephalic HEAD & SCALP: normocephalic MOUTH: Normal oral and palatal mucosa present THROAT: posterior oropharynx normal and uvula midline Eye: COMMON NORMALS: Equal, round and reactive pupils present and conjunctivae normal CONJUNCTIVA: Yes conjunctivae normal PUPIL: Yes Equal, round and reactive pupils present Neck/C-Spine: COMMON NORMALS: supple GENERAL: Yes normal visual inspection Resp: COMMON NORMALS: normal respiratory effort, No retractions, No use of accessory muscles and clear to auscultation bilaterally AUSCULTATION: clear to auscultation bilaterally Cardio: COMMON NORMALS: regular rate, regular rhythm, S1 normal heart sound present, S2 normal heart sound present, No gallops present (Cardio), No clicks present (Cardio), No murmurs present (Cardio) and Peripheral pulses 2+ throughout RATE: regular rate RHYTHM: regular rhythm HEART SOUNDS: S1 normal heart sound present and S2 normal heart sound present PERIPHERAL PULSES: Peripheral pulses 2+ throughout GI: COMMON NORMALS: Normal to inspection, nondistended, normoactive bowel sounds present, Soft to palpation, non-tender and no masses PALPATION: Yes Soft to palpation : COMMON NORMALS: Yes no CVA tenderness BLADDER/KIDNEY EXAM: Yes no CVA tenderness Back/Pelvis: COMMON NORMALS: no CVA tenderness Extremity: COMMON NORMALS: normal to inspection Neuro: COMMON NORMALS: patient oriented x3 and moves all extremities SENSORIUM/ORIENTATION: Yes alert Skin: GENERAL SKIN EXAM: dry skin Course Vital Signs: Vital signs: Vital Signs Temperature 100 F H 11/02/21 13:26 Pulse Rate 88 11/02/21 14:07 Respiratory Rate 16 11/02/21 14:07 Blood Pressure 109/70 11/02/21 14:07 Pulse Oximetry 94 11/02/21 14:07 MDM - Weakness Medical Decision Making Patient is a 56-year-old female comes to the ED with nausea vomiting and weakness. Symptoms started yesterday evening. She started developing the chills, body aches, nausea/vomiting and watery diarrhea. Denies any fever or abdominal pain. Temp 100 ?F but the rest of vitals are stable. Exam of patient is benign and she has no abdominal tenderness. White blood cell count of 16 and the rest of her labs were unremarkable. COVID test was negative. Chest x-ray showed some soft tissue density in the mediastinal area could be adenopathy or mass. No pneumonia seen. Due to the chest x-ray finding I placed an order with case management for patient. I made patient aware of chest x-ray finding and told her to discuss findings with her PCP as well. Refer to Dr. Rogers for follow-up on chest x-ray finding. Patient was given 1 L of IV fluids and Zofran here in the ED her symptoms improved and her nausea and vomiting was controlled. She passed p.o. fluid challenge. Patient diagnosed with a viral syndrome and an abnormal finding on chest x-ray. She was stable for discharge home and sent home with a prescription for Zofran for nausea and steroid. Follow-up with PCP in the next week for reevaluation. Return to ED precautions given. Patient understood and agreed with plan. Lab Data I reviewed the patient's lab results. : 11/02/21 14:19 11/02/21 14:19 Radiology Impressions Chest X-Ray 11/02/21 14:07 IMPRESSION: 1. Continued loss of volume in the right upper lobe with elevated right minor fissure. 2. Lobulated soft tissue density in the right paratracheal and right mediastinal area consistent with atelectasis and/or adenopathy and/or mass. Laboratory Results WBC 16.0 10^3/uL (4.0-10.0) H 11/02/21 14:19 RBC 4.03 10^6/uL (4.1-5.3) L 11/02/21 14:19 Hgb 12.1 g/dL (11.5-15.3) 11/02/21 14:19 Hct 37.6 % (37.0-47.0) 11/02/21 14:19 MCV 93.3 fl (81-99) 11/02/21 14:19 MCH 30.0 pg (28.0-34.0) 11/02/21 14:19 MCHC 32.2 g/dL (30.0-36.0) 11/02/21 14:19 RDW 14.9 % (12.1-15.1) 11/02/21 14:19 Plt Count 225 10^3/cmm (130-400) 11/02/21 14:19 MPV 9.9 fL (7.4-10.4) 11/02/21 14:19 Neut % (Auto) 93.1 % 11/02/21 14:19 Lymph % (Auto) 2.6 % 11/02/21 14:19 Weld % (Auto) 3.4 % 11/02/21 14:19 Eos % (Auto) 0.1 % 11/02/21 14:19 Baso % (Auto) 0.4 % 11/02/21 14:19 Neut # (Auto) 14.88 10^3/uL (1.8-7.7) H 11/02/21 14:19 Lymph # (Auto) 0.4 10^3/uL (0.8-4.8) L 11/02/21 14:19 Weld # (Auto) 0.5 10^3/uL (0.2-0.9) 11/02/21 14:19 Eos # (Auto) 0.0 10^3/uL (0.0-0.8) 11/02/21 14:19 Baso # (Auto) 0.1 10^3/uL (0.0-0.1) 11/02/21 14:19 Nucleated RBC % (auto) 0 % 11/02/21 14:19 Nucleated RBCs # 0.0 /100WBC 11/02/21 14:19 Sodium 135 mmol/L (136-145) L 11/02/21 14:19 Potassium 4.7 mmol/L (3.5-5.1) 11/02/21 14:19 Chloride 98 mmol/L (98-107) 11/02/21 14:19 Carbon Dioxide 24 mmol/L (22-29) 11/02/21 14:19 Anion Gap 17.7 (5-19) 11/02/21 14:19 BUN 14 mg/dL (6-20) 11/02/21 14:19 Creatinine 1.3 mg/dL (0.5-0.9) H 11/02/21 14:19 GFR Calculation 42.7 mL/min (90-130) L 11/02/21 14:19 Glucose 233 mg/dL (65-115) H 11/02/21 14:19 Calculated Osmolality 288 mOsm/kg (285-295) 11/02/21 14:19 Calcium 8.9 mg/dL (8.5-10.5) 11/02/21 14:19 Total Bilirubin 1.1 mg/dL (0.15-1.2) 11/02/21 14:19 AST 30 U/L (0-32) 11/02/21 14:19 ALT 18 U/L (0-33) 11/02/21 14:19 Alkaline Phosphatase 86 IU/L (35-105) 11/02/21 14:19 Total Protein 6.8 g/dL (6.6-8.7) 11/02/21 14:19 Albumin 3.9 g/dL (3.5-5.2) 11/02/21 14:19 Globulin 2.9 g/dL (1.3-4.6) 11/02/21 14:19 Lipase 8 U/L (13-60) L 11/02/21 14:19 Coronavirus 229E (PCR) Not detected (NOT DETECT) 11/02/21 14:19 SARS-CoV-2 (PCR) Not detected (NOT DETECT) 11/02/21 14:19 Discharge Plan Discharge Patient Disposition: Home Clinical Impression: Viral syndrome, Abnormal finding on chest xray Condition: Stable Prescriptions: New prednisone 20 mg tablet 20 mg PO BID 5 Days Qty: 10 0RF ondansetron 4 mg tablet,disintegrating 4 mg PO Q8H PRN (Reason: nausea and vomiting) Qty: 20 0RF No Action baclofen 10 mg tablet 10 mg PO TID PRN (Reason: Muscle Spasm) 0RF albuterol sulfate 2.5 mg /3 mL (0.083 %) solution for nebulization 2.5 mg INHALATION Q6H PRN (Reason: Wheezing) 0RF methocarbamol 500 mg tablet 500 mg PO BID PRN (Reason: Muscle Spasm) 0RF levothyroxine 137 mcg tablet See Rx Instructions .ROUTE .COMPLEX 0RF Rx Instructions: 137 mcg orally ;Saturday, , , , Sat, Sat & 68.5 mcg on Sundays ropinirole 3 mg tablet 3 mg PO BEDTIME 0RF hydroxyzine HCl 50 mg tablet 50 mg PO BEDTIME 0RF budesonide 3 mg capsule,delayed,extend.release 9 mg PO QAM 0RF metformin 500 mg tablet extended release 24 hr 1,000 mg PO BID 0RF Pentasa 500 mg capsule, extended release 500 mg PO QID 0RF Rx Instructions: PT STATES MEDICATION IS ON HOLD-PT STATES NOT TAKEN IN 2 WEEKS potassium gluconate 595 mg (99 mg) Tablet 595 mg PO TID 0RF Trulicity 0.75 mg/0.5 mL pen injector 0.75 mg SUBCUT Q7D 0RF Rx Instructions: PT STATES SHE HAS NOT STARTED THIS MEDICATION YET clobetasol 0.05 % solution See Rx Instructions .ROUTE .COMPLEX 0RF Rx Instructions: Apply a few drops to the scalp daily as needed ascorbic acid (vitamin C) [Vitamin C] 500 mg Tablet 500 mg PO BID Qty: 20 0RF benzonatate 100 mg Capsule 100 mg PO TID Qty: 15 0RF zinc gluconate 50 mg Tablet 50 mg PO DAILY Qty: 14 0RF multivitamin Tablet 1 tab PO DAILY 0RF carica papaya [Papaya Enzyme] Tablet 1 tab PO TID PRN (Reason: PRN) 0RF meloxicam 15 mg Tablet 15 mg PO DAILY 0RF estradiol [Vivelle-Dot] 0.1 mg/24 hr Patch Semiweekly See Rx Instructions .ROUTE .COMPLEX 0RF Rx Instructions: 0.1 mg transdermally change on and saturday diphenoxylate-atropine [Lomotil] 2.5-0.025 mg Tablet 2 tab PO QID 0RF hydrocodone-acetaminophen 10-325 mg Tablet 1 tab PO Q6H PRN (Reason: Pain) 0RF cyanocobalamin (vitamin B-12) 500 mcg Tablet 500 mcg PO DAILY 0RF pantoprazole 40 mg Tablet,Delayed Release (Dr/Ec) 40 mg PO BID 0RF pseudoephedrine HCl [Sudafed] 30 mg Tablet 30 mg PO Q8H PRN (Reason: Congestion) 0RF montelukast 10 mg Tablet 10 mg PO BEDTIME 0RF allopurinol 300 mg Tablet 300 mg PO QAM 0RF furosemide [Lasix] 20 mg Tablet 20 mg PO QAM 0RF albuterol sulfate [Ventolin HFA] 90 mcg/actuation Hfa Aerosol Inhaler 2 inh INHALATION BID PRN (Reason: Shortness Of Breath) 0RF magnesium oxide 250 mg magnesium Tablet 250 mg PO TID 0RF budesonide-formoterol [Symbicort] 160-4.5 mcg/actuation Hfa Aerosol Inhaler 2 puff INHALATION BID 0RF Align 10.5 mg (10 million cell) Tablet,Chewable 10.5 mg PO BEDTIME 0RF atorvastatin 20 mg Tablet 20 mg PO BEDTIME 0RF sertraline [Zoloft] 50 mg Tablet 50 mg PO DAILY 0RF Discharge Orders: Discharge ED (Routine); Ordered 11/02/21 Ordered By: Josh Byers Referrals: Linda Castro MD [Primary Care Provider] - Discharge Diet: Advance as tolerated Discharge Activity: Increase activity as tolerated Patient Instructions: Viral Syndrome (ED) Activity Restrictions/Additional Instructions: Follow-up with medical provider as directed next 5 to 7 days reevaluation. Your COVID-19 test is pending and results should be back within the next couple hours. You can call [facility] later this evening to find out test results. I placed an order with case management for you to be referred to Dr. Rogers for further evaluation of lung findings and chest x-ray. medications as prescribed. Return to the ER or your medical provider if condition worsens. Please read and understand discharge instructions. [facility]. Please realize this is an emergency room and that we are providing you with a medical screening exam and this may not be complete and all inclusive of all the testing and or work up that you may need to determine your ailment or severity of your illness. It is very important that you follow up as instructed or that you return to the Emergency Department should you have concerns or if your condition changes or worsens in any way. Coding Level of Care Code ED [employer] for Chg Fwd Exam Comprehensive Documented by User: Wolf Marx DO 11/03/21 07:47 HPI - Weakness General: Chief complaint: Weakness Stated complaint: N/V/D Chills Time Seen by Provider: 11/02/21 13:40 [facility] ED [facility]: Medical History Asthma, non-allergic non eosinophilic BMI 37.0-37.9, adult Cholelithiasis COVID-19 vaccine administered 2 mRNA doses (3rd dose/booster due in 05/2021) Diabetes mellitus, type II Fibromyalgia GERD (gastroesophageal reflux disease) Headache, migraine History of arm fracture History of PFTs 12/03/2019: FEV1/FVC 74%, FEV1 2.65L (88% predicted), FVC 3.58L (95% of predicted), RV normal, DLCO 95%. History of sleep study 2018 - no evidence of sleep apnea or nocturnal hypoxemia History of small bowel obstruction recurrent, has required dilatation of ileoanal anastomosis in the past by Dr Shawn Munroe at [facility] History of stress test 2016 - normal ekg response to lexiscan HLA-B27 positive Hyperlipidemia Hypertension Hypothyroidism Inflammatory bowel disease Patient reports history of ulcerative colitis, resolved s/p total colectomy, with subsequent development of small bowel Crohn's disease on Pentasa and Budesonide Iron deficiency anemia Osteoarthritis Sebopsoriasis Urolithiasis large right renal pelvic stone, calcium oxalate dihydrate/uric acid, treated with chronic Cyra K 30meq tid and allopurinol 300mg daily Uveitis Vitamin D deficiency Surgical History History of appendectomy History of closure of ileostomy History of colectomy total with ileoanal anastomosis in form of anal pouch, due to ulcerative colitis History of fasciotomy History of flexible sigmoidoscopy History of hysterectomy History of lithotripsy (~2009) ESWL/ureteroscopy with laser lithotripsy History of nasal septoplasty History of partial gastrectomy History of repair of rotator cuff History of skin graft History of thyroidectomy Family History Mother , AT AGE 68 CAD (coronary artery disease) Stroke Diabetes Father COPD (chronic obstructive pulmonary disease) Degenerative disk disease Arthritis Social History Smoking and tobacco status: never smoked Second hand smoke exposure: Yes Alcohol intake: never Lives independently: Yes Household members: spouse and other Details: adult autistic son Current occupational status: disabled Current gender identity: Female Course Vital Signs: Vital signs: Vital Signs Temperature 100 F H 11/02/21 13:26 Pulse Rate 88 11/02/21 14:07 Respiratory Rate 16 11/02/21 14:07 Blood Pressure 109/70 11/02/21 14:07 Pulse Oximetry 94 11/02/21 14:07 MDM - Weakness Medical Decision Making Patient is a 56-year-old female comes to the ED with nausea vomiting and weakness. Symptoms started yesterday evening. She started developing the chills, body aches, nausea/vomiting and watery diarrhea. Denies any fever or abdominal pain. Temp 100 ?F but the rest of vitals are stable. Exam of patient is benign and she has no abdominal tenderness. White blood cell count of 16 and the rest of her labs were unremarkable. COVID test was negative. Chest x-ray showed some soft tissue density in the mediastinal area could be adenopathy or mass. No pneumonia seen. Due to the chest x-ray finding I placed an order with case management for patient. I made patient aware of chest x-ray finding and told her to discuss findings with her PCP as well. Refer to Dr. Rogers for follow-up on chest x-ray finding. Patient was given 1 L of IV fluids and Zofran here in the ED her symptoms improved and her nausea and vomiting was controlled. She passed p.o. fluid challenge. Patient diagnosed with a viral syndrome and an abnormal finding on chest x-ray. She was stable for discharge home and sent home with a prescription for Zofran for nausea and steroid. Follow-up with PCP in the next week for reevaluation. Return to ED precautions given. Patient understood and agreed with plan. Chart reviewed and patient discussed with midlevel. Agree with assessment and plan. Lab Data : 11/02/21 14:19 11/02/21 14:19 Radiology Impressions Chest X-Ray 11/02/21 14:07 IMPRESSION: 1. Continued loss of volume in the right upper lobe with elevated right minor fissure. 2. Lobulated soft tissue density in the right paratracheal and right mediastinal area consistent with atelectasis and/or adenopathy and/or mass. Laboratory Results WBC 16.0 10^3/uL (4.0-10.0) H 11/02/21 14:19 RBC 4.03 10^6/uL (4.1-5.3) L 11/02/21 14:19 Hgb 12.1 g/dL (11.5-15.3) 11/02/21 14:19 Hct 37.6 % (37.0-47.0) 11/02/21 14:19 MCV 93.3 fl (81-99) 11/02/21 14:19 MCH 30.0 pg (28.0-34.0) 11/02/21 14:19 MCHC 32.2 g/dL (30.0-36.0) 11/02/21 14:19 RDW 14.9 % (12.1-15.1) 11/02/21 14:19 Plt Count 225 10^3/cmm (130-400) 11/02/21 14:19 MPV 9.9 fL (7.4-10.4) 11/02/21 14:19 Neut % (Auto) 93.1 % 11/02/21 14:19 Lymph % (Auto) 2.6 % 11/02/21 14:19 Weld % (Auto) 3.4 % 11/02/21 14:19 Eos % (Auto) 0.1 % 11/02/21 14:19 Baso % (Auto) 0.4 % 11/02/21 14:19 Neut # (Auto) 14.88 10^3/uL (1.8-7.7) H 11/02/21 14:19 Lymph # (Auto) 0.4 10^3/uL (0.8-4.8) L 11/02/21 14:19 Weld # (Auto) 0.5 10^3/uL (0.2-0.9) 11/02/21 14:19 Eos # (Auto) 0.0 10^3/uL (0.0-0.8) 11/02/21 14:19 Baso # (Auto) 0.1 10^3/uL (0.0-0.1) 11/02/21 14:19 Nucleated RBC % (auto) 0 % 11/02/21 14:19 Nucleated RBCs # 0.0 /100WBC 11/02/21 14:19 Sodium 135 mmol/L (136-145) L 11/02/21 14:19 Potassium 4.7 mmol/L (3.5-5.1) 11/02/21 14:19 Chloride 98 mmol/L (98-107) 11/02/21 14:19 Carbon Dioxide 24 mmol/L (22-29) 11/02/21 14:19 Anion Gap 17.7 (5-19) 11/02/21 14:19 BUN 14 mg/dL (6-20) 11/02/21 14:19 Creatinine 1.3 mg/dL (0.5-0.9) H 11/02/21 14:19 GFR Calculation 42.7 mL/min (90-130) L 11/02/21 14:19 Glucose 233 mg/dL (65-115) H 11/02/21 14:19 Calculated Osmolality 288 mOsm/kg (285-295) 11/02/21 14:19 Calcium 8.9 mg/dL (8.5-10.5) 11/02/21 14:19 Total Bilirubin 1.1 mg/dL (0.15-1.2) 11/02/21 14:19 AST 30 U/L (0-32) 11/02/21 14:19 ALT 18 U/L (0-33) 11/02/21 14:19 Alkaline Phosphatase 86 IU/L (35-105) 11/02/21 14:19 Total Protein 6.8 g/dL (6.6-8.7) 11/02/21 14:19 Albumin 3.9 g/dL (3.5-5.2) 11/02/21 14:19 Globulin 2.9 g/dL (1.3-4.6) 11/02/21 14:19 Lipase 8 U/L (13-60) L 11/02/21 14:19 Coronavirus 229E (PCR) Not detected (NOT DETECT) 11/02/21 14:19 SARS-CoV-2 (PCR) Not detected (NOT DETECT) 11/02/21 14:19 Discharge Plan Discharge Patient Disposition: Home Clinical Impression: Viral syndrome, Abnormal finding on chest xray Condition: Stable Prescriptions: New prednisone 20 mg tablet 20 mg PO BID 5 Days Qty: 10 0RF ondansetron 4 mg tablet,disintegrating 4 mg PO Q8H PRN (Reason: nausea and vomiting) Qty: 20 0RF No Action baclofen 10 mg tablet 10 mg PO TID PRN (Reason: Muscle Spasm) 0RF albuterol sulfate 2.5 mg /3 mL (0.083 %) solution for nebulization 2.5 mg INHALATION Q6H PRN (Reason: Wheezing) 0RF methocarbamol 500 mg tablet 500 mg PO BID PRN (Reason: Muscle Spasm) 0RF levothyroxine 137 mcg tablet See Rx Instructions .ROUTE .COMPLEX 0RF Rx Instructions: 137 mcg orally ;Saturday, , , , Sat, Sat & 68.5 mcg on Sundays ropinirole 3 mg tablet 3 mg PO BEDTIME 0RF hydroxyzine HCl 50 mg tablet 50 mg PO BEDTIME 0RF budesonide 3 mg capsule,delayed,extend.release 9 mg PO QAM 0RF metformin 500 mg tablet extended release 24 hr 1,000 mg PO BID 0RF Pentasa 500 mg capsule, extended release 500 mg PO QID 0RF Rx Instructions: PT STATES MEDICATION IS ON HOLD-PT STATES NOT TAKEN IN 2 WEEKS potassium gluconate 595 mg (99 mg) Tablet 595 mg PO TID 0RF Trulicity 0.75 mg/0.5 mL pen injector 0.75 mg SUBCUT Q7D 0RF Rx Instructions: PT STATES SHE HAS NOT STARTED THIS MEDICATION YET clobetasol 0.05 % solution See Rx Instructions .ROUTE .COMPLEX 0RF Rx Instructions: Apply a few drops to the scalp daily as needed ascorbic acid (vitamin C) [Vitamin C] 500 mg Tablet 500 mg PO BID Qty: 20 0RF benzonatate 100 mg Capsule 100 mg PO TID Qty: 15 0RF zinc gluconate 50 mg Tablet 50 mg PO DAILY Qty: 14 0RF multivitamin Tablet 1 tab PO DAILY 0RF carica papaya [Papaya Enzyme] Tablet 1 tab PO TID PRN (Reason: PRN) 0RF meloxicam 15 mg Tablet 15 mg PO DAILY 0RF estradiol [Vivelle-Dot] 0.1 mg/24 hr Patch Semiweekly See Rx Instructions .ROUTE .COMPLEX 0RF Rx Instructions: 0.1 mg transdermally change on and saturday diphenoxylate-atropine [Lomotil] 2.5-0.025 mg Tablet 2 tab PO QID 0RF hydrocodone-acetaminophen 10-325 mg Tablet 1 tab PO Q6H PRN (Reason: Pain) 0RF cyanocobalamin (vitamin B-12) 500 mcg Tablet 500 mcg PO DAILY 0RF pantoprazole 40 mg Tablet,Delayed Release (Dr/Ec) 40 mg PO BID 0RF pseudoephedrine HCl [Sudafed] 30 mg Tablet 30 mg PO Q8H PRN (Reason: Congestion) 0RF montelukast 10 mg Tablet 10 mg PO BEDTIME 0RF allopurinol 300 mg Tablet 300 mg PO QAM 0RF furosemide [Lasix] 20 mg Tablet 20 mg PO QAM 0RF albuterol sulfate [Ventolin HFA] 90 mcg/actuation Hfa Aerosol Inhaler 2 inh INHALATION BID PRN (Reason: Shortness Of Breath) 0RF magnesium oxide 250 mg magnesium Tablet 250 mg PO TID 0RF budesonide-formoterol [Symbicort] 160-4.5 mcg/actuation Hfa Aerosol Inhaler 2 puff INHALATION BID 0RF Align 10.5 mg (10 million cell) Tablet,Chewable 10.5 mg PO BEDTIME 0RF atorvastatin 20 mg Tablet 20 mg PO BEDTIME 0RF sertraline [Zoloft] 50 mg Tablet 50 mg PO DAILY 0RF Discharge Orders: Discharge ED (Routine); Ordered 11/02/21 Ordered By: Josh Byers Referrals: Linda Castro MD [Primary Care Provider] - Discharge Diet: Advance as tolerated Discharge Activity: Increase activity as tolerated Patient Instructions: Viral Syndrome (ED) Activity Restrictions/Additional Instructions: Follow-up with medical provider as directed next 5 to 7 days reevaluation. Your COVID-19 test is pending and results should be back within the next couple hours. You can call [facility] later this evening to find out test results. I placed an order with case management for you to be referred to Dr. Rogers for further evaluation of lung findings and chest x-ray. medications as prescribed. Return to the ER or your medical provider if condition worsens. Please read and understand discharge instructions. [facility] you [facility]. Please realize this is an emergency room and that we are providing you with a medical screening exam and this may not be complete and all inclusive of all the testing and or work up that you may need to determine your ailment or severity of your illness. It is very important that you follow up as instructed or that you return to the Emergency Department should you have concerns or if your condition changes or worsens in any way. Coding Level of Care Code ED [employer] for Jaison Grey Exam Comprehensive
[2021-11-02 14:26] LABS: Basophils # 0.1 10^3/uL (0.0-0.1); Basophils % 0.4 %; Eosinophils % 0.1 %; Hematocrit 37.6 % (37.0-47.0); Hemoglobin 12.1 g/dL (11.5-15.3); Lymphocytes # 0.4 10^3/uL (0.8-4.8); Lymphocytes % 2.6 %; Mean Corpuscular HGB Conc 32.2 g/dL (30.0-36.0); Mean Corpuscular Volume 93.3 fl (81-99); Mean Platelet Volume 9.9 fL (7.4-10.4); Monocytes # 0.5 10^3/uL (0.2-0.9); Monocytes % 3.4 %; Neutrophils # 14.88 10^3/uL (1.8-7.7); Neutrophils % 93.1 %; Nucleated Red Blood Cells % 0 %; Platelet Count 225 10^3/cmm (130-400); Red Blood Count 4.03 10^6/uL (4.1-5.3); Red Cell Distribution Width 14.9 % (12.1-15.1)
[2021-11-02] MEDS: sodium chloride 0.9% 1,000 ML 999 ML IV (14:35)
[2021-11-02 14:48] LABS: Alanine Aminotransferase 18 U/L (0-33); Albumin Level 3.9 g/dL (3.5-5.2); Alkaline Phosphatase 86 IU/L (35-105); Anion Gap 17.7 (5-19); Aspartate Amino Transferase 30 U/L (0-32); Blood Urea Nitrogen 14 mg/dL (6-20); Calcium 8.9 mg/dL (8.5-10.5); Carbon Dioxide 24 mmol/L (22-29); Chloride 98 mmol/L (98-107); Globulin 2.9 g/dL (1.3-4.6); Glomerular Filtration Rate 42.7 mL/min (90-130); Glucose 233 mg/dL (65-115); Lipase 8 U/L (13-60); Osmolality Calculated 288 mOsm/kg (285-295); Potassium 4.7 mmol/L (3.5-5.1); Sodium 135 mmol/L (136-145); Total Bilirubin 1.1 mg/dL (0.15-1.2); Total Protein 6.8 g/dL (6.6-8.7)
[2021-11-02] MEDS: ondansetron 2 mg/ML SDV 2 mL 4 MG IVP (14:54)
[2021-11-02] MEDS: ketorolac 30 mg/mL INJ IVP (15:52)
[2021-11-02 17:19] LABS: Adenovirus Not Detected (NOT DETECT); Chlamydia Pneumoniae Not Detected (NOT DETECT); Coronavirus 229E,HKU1,NL63,OC4 Not Detected (NOT DETECT); Human Metapneumovirus Not Detected (NOT DETECT); Human Rhinovirus/Enterovirus Not Detected (NOT DETECT); Influenza A Not Detected (NOT DETECT); Influenza A H1 Not Detected (NOT DETECT); Influenza A H1-2009 Not Detected (NOT DETECT); Influenza A H3 Not Detected (NOT DETECT); Influenza B Not Detected (NOT DETECT); Mycoplasma Pneumoniae Not Detected (NOT DETECT); Parainfluenza Virus Type 1 Not Detected (NOT DETECT); Parainfluenza Virus Type 2 Not Detected (NOT DETECT); Parainfluenza Virus Type 3 Not Detected (NOT DETECT); Parainfluenza Virus Type 4 Not Detected (NOT DETECT); Respiratory Syncytial Virus A Not Detected (NOT DETECT); Respiratory Syncytial Virus B Not Detected (NOT DETECT); SARS-COV-2 Not Detected (NOT DETECT)
--- NOTE | 2021-11-03 09:24 | DCPLANNER ---
Addendum entered by Deanne Dan 12/06/21 12:16: Patient had a follow up appointment scheduled for 11.09.21 with pulmonology - patient did attend appointment. Addendum entered by Deanne Dan 11/08/21 12:52: Patient has a follow up appointment scheduled for October at 10:[address] Rogers at [facility]. Clinic will call patient with appointment information. Original Note: manager support had message to schedule a follow up appointment for patient with pulmonology. manager support sent patients information to the front office staff at [facility]. Patients information will be printed and reviewed. Clinic will call patient with appointment information.
== END 2021-11-02 17:15 | disposition home or self-care (01) ==
PROVIDERS: Emergency Provider Physician Assistant; PCP Internal Medicine
DX: B34.9 Viral infection, unspecified (principal); R93.89 Abnormal findings on diagnostic imaging of other specified body structures; Z79.84 Long term (current) use of oral hypoglycemic drugs; E11.9 Type 2 diabetes mellitus without complications; E78.5 Hyperlipidemia, unspecified; I10 Essential (primary) hypertension; Z77.22 Contact with and (suspected) exposure to environmental tobacco smoke (acute) (chronic); Z20.822 Contact with and (suspected) exposure to COVID-19
CPT/HCPCS: 71045; 80053; 83690; 85025; 87635; 96361; 96374; 96375; 99284; J1885; J2405; J7030

== ENCOUNTER → 2021-11-09 09:54 | Outpatient (BNVA) | payer MEDICARE, MEDICAID, SELFPAY | PROVIDERS: PCP Internal Medicine; Visit Provider Internal Medicine Critical Care Medicine | DX: J45.909 Unspecified asthma, uncomplicated (principal); J98.59 Other diseases of mediastinum, not elsewhere classified; E66.9 Obesity, unspecified; Z68.38 Body mass index [BMI] 38.0-38.9, adult | CPT/HCPCS: 71250; 99214 ==

== ENCOUNTER 2021-11-09 14:26 | Outpatient (CLI) | payer MEDICARE, MEDICAID, SELFPAY ==
--- NOTE | 2021-11-09 14:30 | CT_ITS ---
WS: [id number] CT CHEST WITHOUT INTRAVENOUS CONTRAST HISTORY: Mediastinal mass TECHNIQUE: Contiguous 5 mm axial imaging performed on the thorax. Coronal and sagittal reformats are submitted. All CT scans at [facility] use at least one of these dose optimization techniques: automated exposure control; mA and/or kV adjustment per patient size (includes targeted exams where dose is matched to clinical indication); or iterative reconstruction. CONTRAST: None DLP: 783.80 mGy.cm COMPARISON: 04/25/2021, 11/02/2021, 09/16/2012 and 04/23/2021 Lungs and central airway: Lung volumes are not significantly decreased. The RIGHT mediastinal widenin g seen on recent chest radiograph corresponds to partial atelectasis of the medial RIGHT upper lobe a butting the mediastinum. There is moderate stenosis involving the proximal RIGHT upper lobe bronchus which is probably resulting in this atelectasis. There is adjacent additional more subtle stenosis in volving the proximal LEFT upper lobe bronchus. Mild lingular atelectasis. Pleura: No pleural effusions. Mild thickening along the fissures. Heart and pericardium: Normal size heart with no pericardial effusion. Mediastinum and betty: There are a few small mediastinal lymph nodes. No significantly enlarged lymph nodes on this unenhanced exam. Vessels: Normal size aortic and pulmonary artery. No coronary artery calcifications. Chest wall and lower neck: No soft tissue masses. Upper abdomen: Prior gastric sleeve procedure. No adrenal mass. Small hiatal hernia. Contracted gallb ladder. The gallbladder may contain stones. Osseous structures: No destructive process. CT/CT chest wo con [id number] IMPRESSION: 1. Mediastinal widening and prominent soft tissue thickening seen on recent est radiograph corresponds to partial atelectasis of the medial RIGHT upper lob e and mild RIGHT hilar prominence. Without IV contrast cannot evaluate well for lymphadenopathy. 2. Moderate narrowing causing stenosis of the proximal RIGHT upper lobe bronch us may be resulting in the atelectasis. There is a similar findings but not kayce te as stenotic involving the proximal LEFT upper lobe bronchus. 3. There is a long differential for an etiology of bronchial stenosis. Includi ng tracheobronchial papillomatosis, prior granulomatous disease, sarcoidosis an d relapsing polychondritis. This patient may need bronchoscopy to evaluate for the underlying cause.
== END 2021-11-09 14:27 | disposition home or self-care (01) ==
PROVIDERS: PCP Internal Medicine; Visit Provider Internal Medicine Critical Care Medicine
DX: J98.59 Other diseases of mediastinum, not elsewhere classified (principal)
CPT/HCPCS: 71250

== ENCOUNTER 2021-11-14 06:31 | Day surgery (SDC) | payer MEDICARE, MEDICAID, SELFPAY ==
[2021-11-12 08:44] VITALS: BMI 37.4
[2021-11-14 07:24] VITALS: BP 186/96; PULSE 90; RESP 20; TEMP 36.3; O2SAT 97
[2021-11-14] MEDS: sodium chloride 0.9% 1,000 ML 30 ML IV (07:33)
--- NOTE | 2021-11-14 08:48 | ANES.PREANE2 ---
Pre-Anesthetic Assessment Height/Weight: Height 1.73 m Weight 111.584 kg Temp Pulse Resp BP Pulse Ox O2 Del Method 97.4 F L 90 20 H 186/96 97 11/14/21 07:24 11/14/21 07:24 11/14/21 07:24 11/14/21 07:24 11/14/21 07:24 11/14/21 07:24 Preop Diagnosis: Right upper lobe atelectasis Operation Date: 11/14/21 08:10 Proposed Procedures p Bronchoscopy,Ebus [id number],J98.59(Not Applicable) - Eulalia Rogers MD s Ebus(Not Applicable) - Eulalia Rogers MD Familial anesthetic complications: None Was Beta Mike taken within 24 hours: N/A Was Clonidine taken within 24 hours: N/A Last intake: Intake Last Liquid Date 11/13/21 Last Liquid Time 23:45 Last Solid Date 11/13/21 Last Solid Time 22:30 Social No alcohol and No tobacco Exam alert, oriented x 3, clear to auscultation bilaterally and regular rate & rhythm Airway Submandibular: within normal limits Cervical ROM: within normal limits Mallampati: Class II Dentition: full Pulmonary Asthma Mediastinal CV/HEM Anemia Musc/skel Fibromyalgia Anesthetic Plan ASA status: 3 Anesthesia: General Medications/Allergies Home Medications Medication Instructions Recorded Confirmed Last Taken Type Bifidobacterium infantis 10.5 mg 10.5 mg PO BEDTIME 06/24/19 11/12/21 11/13/21 History (10 million cell) chewable tablet (Align) albuterol sulfate 90 mcg/actuation 2 inh inhalation BID PRN Shortness 06/24/19 11/12/21 11/13/21 History aerosol inhaler (Ventolin HFA) Of Breath allopurinol 300 mg tablet 300 mg PO QAM 06/24/19 11/12/21 11/13/21 History atorvastatin 20 mg tablet 20 mg PO BEDTIME 06/24/19 11/12/21 11/13/21 History budesonide-formoterol HFA 160 2 puff inhalation BID 06/24/19 11/12/21 11/13/21 History mcg-4.5 mcg/actuation aerosol inhaler (Symbicort) carica papaya (Papaya Enzyme) 1 tab PO QID PRN PRN 06/24/19 11/12/21 08/13/21 History cyanocobalamin (vitamin B-12) 500 500 mcg PO DAILY 06/24/19 11/12/21 11/13/21 History mcg tablet diphenoxylate-atropine 2.5 2 tab PO QID PT STATES SHE TAKES 06/24/19 11/12/21 11/13/21 History mg-0.025 mg tablet (Lomotil) SCHEDULED estradiol 0.1 mg/24 hr semiweekly 1 patch transdermal DIRECTED 06/24/19 11/12/21 11/13/21 History transdermal patch (Vivelle-Dot) hydrocodone 10 mg-acetaminophen 1 tab PO Q6H PRN Pain 06/24/19 11/12/21 08/13/21 History 325 mg tablet magnesium oxide 400 mg PO TID 06/24/19 11/12/21 11/13/21 History meloxicam 15 mg tablet 15 mg PO DAILY 06/24/19 11/12/21 11/13/21 History montelukast 10 mg tablet 10 mg PO BEDTIME 06/24/19 11/12/21 11/13/21 History multivitamin 1 tab PO DAILY 06/24/19 11/12/21 11/13/21 History pantoprazole 40 mg tablet,delayed 40 mg PO BID 06/24/19 11/12/21 11/13/21 History release pseudoephedrine HCl 30 mg tablet 30 mg PO Q8H PRN Congestion 06/24/19 11/12/21 08/13/21 History (Sudafed) albuterol sulfate 2.5 mg inhalation Q6H PRN Wheezing 09/16/19 11/12/21 08/13/21 History baclofen 10 mg tablet 10 mg PO TID PRN Muscle Spasm 03/22/21 11/12/21 08/13/21 History clobetasol 0.05 % scalp solution 2 applic topical DAILY PRN Dry Skin 04/24/21 11/12/21 08/13/21 History dulaglutide 0.75 mg/0.5 mL 3 mg SUBCUT Q7D PT STATES SHE HAS 04/24/21 11/14/21 11/12/21 History subcutaneous pen injector NOT STARTED THIS MEDICATION YET (Trulicity) hydroxyzine HCl 50 mg tablet 50 mg PO BEDTIME RX LAST FILLED 04/24/21 11/12/21 11/13/21 History 02/06/21 30D/S FOR 50MG BID PRN-PT STATES SHE TAKES ONE TAB HS levothyroxine 137 mcg tablet See Rx Instructions .Route 04/24/21 11/12/21 11/13/21 History .COMPLEX RX LAST FILLED 03/10/21 137MCG DAILY-PT STATES SHE TAKES 137 mcg orally ;Saturday, , , , Sat, Sat & 68.5 mcg on Sundays metformin 500 mg tablet,extended 1,000 mg PO BID 04/24/21 11/14/21 11/12/21 History release 24 hr methocarbamol 500 mg tablet 500 mg PO BID PRN Muscle Spasm 04/24/21 11/12/21 08/13/21 History potassium gluconate 595 mg (99 mg) 595 mg PO TID 04/24/21 11/12/21 11/13/21 History tablet ropinirole 3 mg tablet 3 mg PO BEDTIME 04/24/21 11/12/21 11/13/21 History sertraline 50 mg tablet (Zoloft) 50 mg PO DAILY 08/07/21 11/12/21 11/13/21 History ondansetron 4 mg disintegrating 4 mg PO Q8H PRN nausea and 11/02/21 11/12/21 Unknown Rx tablet vomiting #20 tabs furosemide 20 mg tablet (Lasix) 40 mg PO QAM 11/09/21 11/12/21 Unknown History insulin glargine 100 unit/mL 28 unit SUBCUT DAILY 11/09/21 11/12/21 11/13/21 History subcutaneous solution (Lantus U-100 Insulin) Allergies Allergy/AdvReac Type Severity Reaction Status Date / Time adhesive tape Allergy ALGY-Bliste Verified 11/12/21 08:39 r amoxicillin Allergy ALGY-Swell Verified 11/12/21 08:39 Lip/Tongue/Throat aripiprazole [From Abilify] Allergy ADR-Shakine Verified 11/12/21 08:39 ss clindamycin Allergy ALGY-Swell Verified 11/12/21 08:39 Lip/Tongue/Throat droperidol Allergy ADR-Anxiety Verified 11/12/21 08:39 pramipexole [From Mirapex] Allergy ADR-Itching Verified 11/12/21 08:39 quetiapine [From Seroquel] Allergy ADR-Anxiety Verified 11/12/21 08:39 sulfamethoxazole Allergy ADR-Swelling Verified 11/12/21 08:39 [From Bactrim] of the Eye sumatriptan [From Imitrex] Allergy ADR-Depress Verified 11/12/21 08:39 ion tramadol [From Ultram] Allergy ADR-Itching Verified 11/12/21 08:39 trimethoprim [From Bactrim] Allergy ADR-Swelling Verified 11/12/21 08:39 of the Eye Current Medications Generic Name Dose Route Start Last Admin Trade Name Freq PRN Reason Stop Dose Admin Sodium Chloride 1,000 mls @ 30 mls/hr 11/14/21 06:45 11/14/21 07:33 Sodium Chloride 0.9% IV 11/15/21 06:44 30 mls/hr .Q24H SIMA Administration PFSH Anesthesia Medical History Asthma, non-allergic non eosinophilic BMI 37.0-37.9, adult Cholelithiasis COVID-19 vaccine administered 2 mRNA doses (3rd dose/booster due in 05/2021) Diabetes mellitus, type II Fibromyalgia GERD (gastroesophageal reflux disease) Headache, migraine History of arm fracture History of PFTs 12/03/2019: FEV1/FVC 74%, FEV1 2.65L (88% predicted), FVC 3.58L (95% of predicted), RV normal, DLCO 95%. History of sleep study 2018 - no evidence of sleep apnea or nocturnal hypoxemia History of small bowel obstruction recurrent, has required dilatation of ileoanal anastomosis in the past by Dr Shawn Munroe at [facility] History of stress test 2016 - normal ekg response to lexiscan HLA-B27 positive Hyperlipidemia Hypertension Hypothyroidism Inflammatory bowel disease Patient reports history of ulcerative colitis, resolved s/p total colectomy, with subsequent development of small bowel Crohn's disease on Pentasa and Budesonide Iron deficiency anemia Osteoarthritis Sebopsoriasis Urolithiasis large right renal pelvic stone, calcium oxalate dihydrate/uric acid, treated with chronic Cyra K 30meq tid and allopurinol 300mg daily Uveitis Vitamin D deficiency Surgical History History of appendectomy History of closure of ileostomy History of colectomy total with ileoanal anastomosis in form of anal pouch, due to ulcerative colitis History of fasciotomy History of flexible sigmoidoscopy History of hysterectomy History of lithotripsy (~2009) ESWL/ureteroscopy with laser lithotripsy History of nasal septoplasty History of partial gastrectomy History of repair of rotator cuff History of skin graft History of thyroidectomy Family History Mother , AT AGE 68 CAD (coronary artery disease) Stroke Diabetes Father COPD (chronic obstructive pulmonary disease) Degenerative disk disease Arthritis Social History Smoking and tobacco status: never smoked Second hand smoke exposure: Yes Alcohol intake: never Lives independently: Yes Household members: spouse and other Details: adult autistic son Current occupational status: disabled Current gender identity: Female Data Anesthesia Cardiac Studies: No Data to Display
--- NOTE | 2021-11-14 08:54 | W.PM.OPSUD ---
Surgery/Procedure H&P Update DATE OF PROCEDURE: November 14, 2021 DATE H&P PERFORMED: 11/09/21 PREOP DIAGNOSIS: Right upper lobe atelectasis PRIMARY INDICATION FOR PROCEDURE: Bronchial narrowing in the right upper lobe PLANNED PROCEDURE: Bronchoscopy with inspection of the airway, possible endobronchial biopsy, bronchoalveolar lavage, endobronchial ultrasound-guided transbronchial needle aspiration of lymph nodes and control of bleeding Operation Date: 11/14/21 08:10 Proposed Procedures p Bronchoscopy,Ebus [id number],J98.59(Not Applicable) - Eulalia Rogers MD s Ebus(Not Applicable) - Eulalia Rogers MD
[2021-11-14] MEDS: lidocaine 1% INJ 20 mL XX (09:01)
[2021-11-14 09:43] VITALS: BP 147/89; PULSE 89; RESP 16; TEMP 36.7; O2SAT 94
--- NOTE | 2021-11-14 09:45 | PM.OP ---
Operative Report Date of procedure: November 14, 2021 Pre-op diagnosis: Preop Diagnosis Right upper lobe atelectasis Post-op diagnosis: Bronchial stenosis Brief History: This is a 56-year-old lady coming in for bronchoscopic evaluation after recent CT scan of the chest revealed subtotal right upper lobe atelectasis with evidence of narrowing of the right upper lobe bronchus and left mainstem bronchus. Procedure: Name of the procedure: Bronchoscopy with inspection of the airway, bronchoalveolar lavage, endobronchial biopsies, endobronchial ultrasound-guided inspection of lymph nodes and control of bleeding. Indication: Right upper lobe subtotal atelectasis with concerns for bronchial narrowing. Anesthesia: General anesthesia. Description of the procedure: The procedure was explained to the patient and the consent was obtained. The patient was brought to the OR. The patient underwent laryngeal mask airway placement for general anesthesia. Following induction of general anesthesia, the bronchoscope was advanced through the laryngeal mask airway. The vocal cords were normal. The vocal cords were anesthetized with 1% lidocaine. 3 mL of lidocaine was used. The bronchoscope was introduced through the vocal cords under direct visualization. The upper trachea and lower trachea appeared to be right Mattus with mucosal irregularities throughout. The trachea, johnna and right and left mainstem bronchi were anesthetized with 1% lidocaine. A total of 4 mL was used. The johnna appeared to be splayed. There was evidence of mucosal inflammation and irregularity involving the johnna and the lateral vivar of the lower trachea as well. In a systematic manner bilateral bronchial tree was then examined. The bronchoscope was advanced into the left mainstem bronchus. There was inflammation throughout the left mainstem bronchus. Circumferential narrowing was noted in the left upper lobe bronchus. I could not go beyond this narrowing with the bronchoscope. Left lower lobe segmental and subsegmental bronchi were normal. The bronchoscope was then introduced into the right mainstem bronchus. The right upper lobe bronchus was significantly narrowed with circumferential narrowing at the entrance. I could not pass the bronchoscope beyond this. The right middle lobe and lower lobe bronchi, segmental and subsegmental bronchi were normal. Endobronchial biopsies were obtained from the entrance of the right upper lobe bronchus and from the johnna. Bronchoalveolar lavage was performed from the right upper lobe. A total of 30 cc of fluid was instilled, fluid return was 12 mL. The fluid was bloody. The endobronchial ultrasound was introduced through the LMA. The paratracheal, hilar lymph nodes were small with distinct cortex and middle lobe. Biopsies were performed. Samples: 1. Bronchoalveolar lavage specimen was sent for Gram stain and culture, fungal stain and culture, AFB stain and culture. 2. The endobronchial biopsies are sent for histopathology. Complications: There was no immediate complications.
[2021-11-14 09:50] VITALS: BP 161/98; PULSE 88; RESP 16; O2SAT 96
[2021-11-14 09:55] VITALS: BP 168/90; PULSE 79; RESP 16; O2SAT 97
[2021-11-14 09:59] VITALS: BP 160/89; PULSE 81; RESP 16; TEMP 36.4; O2SAT 96
[2021-11-14 10:11] VITALS: BP 145/85; PULSE 82; RESP 16; O2SAT 97
--- NOTE | 2021-11-14 12:42 | ANE.PACU2 ---
Inpatient post-anesthesia follow up: Airway intact: Yes Vital signs: Temperature 97.6 F Pulse Rate 82 Respiratory Rate 16 Blood Pressure 145/85 Pulse Oximetry 97 Oxygen Delivery Me thod Room Air Oxygen Flow Rate 1 Fraction of Inspir ed Oxygen Hydration adequate: Yes Nausea and vomiting: No Pain level: 1 Mental status: Baseline
== END 2021-11-14 10:20 | disposition home or self-care (01) ==
PROVIDERS: PCP Internal Medicine; Visit Provider Internal Medicine Critical Care Medicine
PROC: 0BJ08ZZ Inspection of Tracheobronchial Tree, Via Natural or Artificial Opening Endoscopic (ICD-10-PCS; CPT 31622; principal; 2021-11-14 08:00)
PROC: BB4BZZZ Ultrasonography of Pleura (ICD-10-PCS; 2021-11-14 08:00)
DX: J98.11 Atelectasis (principal); E11.9 Type 2 diabetes mellitus without complications; M79.7 Fibromyalgia; K21.9 Gastro-esophageal reflux disease without esophagitis; J45.909 Unspecified asthma, uncomplicated; E78.5 Hyperlipidemia, unspecified; I10 Essential (primary) hypertension; E03.9 Hypothyroidism, unspecified; M19.90 Unspecified osteoarthritis, unspecified site; E55.9 Vitamin D deficiency, unspecified
CPT/HCPCS: 31624; 31625; 87015; 87070; 87077; 87116; 87186; 87205; 87206; 87801; 88305; 88312; J2001; J2250; J2704; J3010; J7030

== ENCOUNTER 2021-11-17 11:01 | Outpatient (CLI) | payer MEDICARE, MEDICAID, SELFPAY ==
[2021-11-17 12:02] LABS: Erythrocyte Sedimentation Rate 31 mm/hr (0-15)
[2021-11-25 14:35] LABS: Myeloperoxidase Antibody <1.0 AI (<1.0)
== END 2021-11-17 11:02 | disposition home or self-care (01) ==
LOC: LAB 11:04
PROVIDERS: PCP Internal Medicine; Visit Provider Internal Medicine Critical Care Medicine
DX: J98.09 Other diseases of bronchus, not elsewhere classified (principal)
CPT/HCPCS: 36415; 85651; 86021; 86036; 86140

== ENCOUNTER → 2021-12-05 14:01 | Outpatient (BNVA) | payer MEDICARE, MEDICAID, SELFPAY | PROVIDERS: PCP Internal Medicine; Visit Provider Internal Medicine Critical Care Medicine | DX: M94.1 Relapsing polychondritis (principal); J98.59 Other diseases of mediastinum, not elsewhere classified; J45.909 Unspecified asthma, uncomplicated; Z15.89 Genetic susceptibility to other disease | CPT/HCPCS: 99214 ==

== ENCOUNTER 2021-12-07 11:38 | Outpatient (CLI) | payer MEDICARE, MEDICAID, SELFPAY ==
--- NOTE | 2021-12-07 11:43 | MM_ITS ---
WS: [id number] BILATERAL 3D TOMOSYNTHESIS DIGITAL SCREENING MAMMOGRAPHY WITH CAD CLINICAL INFORMATION: SCREENING HISTORY: Screening mammogram. No current complaints. COMPARISON: September 23, 2020 TECHNIQUE: Bilateral CC and MLO views. FINDINGS: History of bilateral breast reduction. Scattered fibroglandular densities bilaterally. No suspicious focal mass, asymmetry, calcifications, or architectural distortion. No evidence of malignancy. MM/[place] [id number] IMPRESSION: BI-RADS: 1-Negative FOLLOW UP: 1 Year Follow-up Recommend return to annual screening mammography.
== END 2021-12-07 11:39 | disposition home or self-care (01) ==
LOC: RAD 11:40
PROVIDERS: PCP Internal Medicine; Visit Provider Nurse Practitioner Family
DX: Z12.31 Encounter for screening mammogram for malignant neoplasm of breast (principal)
CPT/HCPCS: 77063; 77067

== ENCOUNTER → 2022-01-02 13:52 | Outpatient (BNVA) | payer MEDICARE, MEDICAID, SELFPAY | PROVIDERS: PCP Internal Medicine; Visit Provider Internal Medicine | DX: M25.50 Pain in unspecified joint (principal); J98.59 Other diseases of mediastinum, not elsewhere classified; M48.00 Spinal stenosis, site unspecified; K52.9 Noninfective gastroenteritis and colitis, unspecified; L40.9 Psoriasis, unspecified; Z15.89 Genetic susceptibility to other disease; Z90.49 Acquired absence of other specified parts of digestive tract | CPT/HCPCS: 36415; 80053; 85025; 85651; 86140; 99214 ==

== ENCOUNTER 2022-01-03 13:49 | Outpatient (CLI) | payer MEDICARE, MEDICAID, SELFPAY | END 2022-01-03 13:50 | disposition home or self-care (01) | PROVIDERS: PCP Internal Medicine; Visit Provider Internal Medicine Critical Care Medicine | DX: U07.1 COVID-19 (principal); J45.909 Unspecified asthma, uncomplicated; J12.82 Pneumonia due to coronavirus disease 2019; J98.09 Other diseases of bronchus, not elsewhere classified | CPT/HCPCS: 94060; 94726; 94729 ==

== ENCOUNTER → 2022-02-12 09:04 | Outpatient (BNVA) | payer MEDICARE, MEDICAID, SELFPAY | PROVIDERS: PCP Internal Medicine; Visit Provider Internal Medicine Pulmonary Disease | DX: J98.09 Other diseases of bronchus, not elsewhere classified (principal); K52.9 Noninfective gastroenteritis and colitis, unspecified; J98.59 Other diseases of mediastinum, not elsewhere classified; J45.909 Unspecified asthma, uncomplicated; Z86.16 Personal history of COVID-19; E66.9 Obesity, unspecified; Z68.34 Body mass index [BMI] 34.0-34.9, adult | CPT/HCPCS: 99214 ==

== ENCOUNTER → 2022-03-13 11:08 | Outpatient (BNVA) | payer MEDICARE, MEDICAID, SELFPAY | PROVIDERS: PCP Internal Medicine; Visit Provider Internal Medicine | DX: L40.9 Psoriasis, unspecified (principal); M25.50 Pain in unspecified joint; M25.60 Stiffness of unspecified joint, not elsewhere classified | CPT/HCPCS: 36415; 80053; 85025; 85651; 86140; 86480; 99214 ==

== ENCOUNTER 2022-03-20 10:05 | Outpatient (CLI) | payer MEDICARE, MEDICAID, SELFPAY ==
--- NOTE | 2022-03-20 10:29 | XR_ITS ---
WS: [id number] EXAMINATION: XR KUB [id number] REASON FOR EXAM: Urolithiasis COMPARISON: 03/22/2021 ORDER DATE: 03/20/2022 10:45 AM Gastrointestinal tract: Moderately dilated increased small bowel gas. Moderate colonic gas. Overlying bowel gas limits evaluation for radiographically appearance stones within the right kidney. There is circumferential calculus like appearance over 10 mm diameter superi mposed by the ascending colon gas in the right upper quadrant. No evidence stones in the left kidney . Intraperitoneal space: Multiple surgical clips noted within the abdomen. Bones/joints: Unremarkable. XR/XR KUB [id number] IMPRESSION: Calculus like density in the right upper quadrant with no interval change miguel red with the last study.
== END 2022-03-20 10:06 | disposition home or self-care (01) ==
LOC: RAD 10:07
PROVIDERS: PCP Internal Medicine; Visit Provider Urology
DX: N20.9 Urinary calculus, unspecified (principal)
CPT/HCPCS: 74018; 81003; 99213

== ENCOUNTER → 2022-05-30 10:59 | Outpatient (BNVA) | payer MEDICARE, MEDICAID, SELFPAY | PROVIDERS: PCP Internal Medicine; Visit Provider Internal Medicine | DX: L40.9 Psoriasis, unspecified (principal); M25.50 Pain in unspecified joint | CPT/HCPCS: 99213 ==

== ENCOUNTER → 2022-09-24 15:27 | Outpatient (BNVA) | payer MEDICARE, MEDICAID, SELFPAY | PROVIDERS: PCP Internal Medicine; Visit Provider Podiatrist Foot & Ankle Surgery | DX: E11.9 Type 2 diabetes mellitus without complications (principal); S92.352A Displaced fracture of fifth metatarsal bone, left foot, initial encounter for closed fracture; X50.9XXA Other and unspecified overexertion or strenuous movements or postures, initial encounter; Z79.4 Long term (current) use of insulin | CPT/HCPCS: 73630; 99204 ==

== ENCOUNTER → 2022-10-08 13:32 | Outpatient (BNVA) | payer MEDICARE, MEDICAID, SELFPAY | PROVIDERS: PCP Internal Medicine; Visit Provider Podiatrist Foot & Ankle Surgery | DX: S92.352A Displaced fracture of fifth metatarsal bone, left foot, initial encounter for closed fracture (principal); X58.XXXA Exposure to other specified factors, initial encounter | CPT/HCPCS: 73630; 99213 ==

== ENCOUNTER → 2022-11-05 13:17 | Outpatient (BNVA) | payer MEDICARE, MEDICAID, SELFPAY | PROVIDERS: PCP Internal Medicine; Visit Provider Podiatrist Foot & Ankle Surgery | DX: S92.352A Displaced fracture of fifth metatarsal bone, left foot, initial encounter for closed fracture (principal); X58.XXXA Exposure to other specified factors, initial encounter; E11.9 Type 2 diabetes mellitus without complications; Z79.4 Long term (current) use of insulin | CPT/HCPCS: 73630; 99213 ==

== ENCOUNTER → 2022-11-29 11:25 | Outpatient (BNVA) | payer MEDICARE, MEDICAID, SELFPAY | PROVIDERS: PCP Internal Medicine; Visit Provider Internal Medicine | DX: L40.9 Psoriasis, unspecified (principal); M25.50 Pain in unspecified joint; K58.9 Irritable bowel syndrome, unspecified; R94.4 Abnormal results of kidney function studies | CPT/HCPCS: 99214 ==

== ENCOUNTER → 2022-12-20 08:09 | Outpatient (BNVA) | payer MEDICARE, MEDICAID, SELFPAY | PROVIDERS: PCP Internal Medicine; Visit Provider Internal Medicine Pulmonary Disease | DX: J98.09 Other diseases of bronchus, not elsewhere classified (principal); Z77.22 Contact with and (suspected) exposure to environmental tobacco smoke (acute) (chronic); Z86.16 Personal history of COVID-19; J45.909 Unspecified asthma, uncomplicated; R09.82 Postnasal drip; K63.89 Other specified diseases of intestine; L40.50 Arthropathic psoriasis, unspecified; E66.9 Obesity, unspecified; Z68.34 Body mass index [BMI] 34.0-34.9, adult | CPT/HCPCS: 99214 ==

== ENCOUNTER 2023-02-15 11:59 | Outpatient (CLI) | payer MEDICARE, MEDICAID, SELFPAY ==
--- NOTE | 2023-02-15 12:05 | MM_ITS ---
WS: [id number] BILATERAL 3D TOMOSYNTHESIS DIGITAL SCREENING MAMMOGRAPHY WITH CAD CLINICAL INFORMATION: SCREENING HISTORY: Screening mammogram. History of bilateral breast reduction. COMPARISON: 2021 TECHNIQUE: Bilateral CC and MLO views. FINDINGS: Scattered fibroglandular densities bilaterally. No suspicious focal mass, asymmetry, calcifications, or architectural distortion. No evidence of malignancy. IMPRESSION: MM/[place] [id number] BI-RADS: 1-Negative FOLLOW UP: 1 Year Follow-up Recommend return to annual screening mammography.
== END 2023-02-15 12:00 | disposition home or self-care (01) ==
LOC: RAD 12:00
PROVIDERS: PCP Internal Medicine; Visit Provider Internal Medicine
DX: Z12.31 Encounter for screening mammogram for malignant neoplasm of breast (principal)
CPT/HCPCS: 77063; 77067

== ENCOUNTER 2023-04-11 08:30 | Oncology outpatient (recurring) (ONCR) | payer MEDICARE, MEDICAID, SELFPAY ==
[2023-04-04 09:05] VITALS: BP 129/82; PULSE 83; RESP 16; O2SAT 96
[2023-04-04 09:23] VITALS: TEMP 36.4
[2023-04-04] MEDS: sodium chloride 0.9% 250 ML 75 ML IV (09:30)
[2023-04-04] MEDS: ferric carboxy (IVPB) 750 MG in sodium chloride 0.9% (100 ml) 100 ML 345 MG IV (09:30)
[2023-04-04 10:03] VITALS: BP 133/79; PULSE 79; RESP 16; TEMP 36.2; O2SAT 97
[2023-04-11 09:24] VITALS: BP 124/80; PULSE 80; RESP 17; O2SAT 99
[2023-04-11] MEDS: sodium chloride 0.9% 250 ML 75 ML IV (09:34)
[2023-04-11] MEDS: ferric carboxy (IVPB) 750 MG in sodium chloride 0.9% (100 ml) 100 ML 345 MG IV (09:45)
[2023-04-11 10:40] VITALS: BP 124/73; PULSE 65; RESP 17; O2SAT 100
== END 2023-04-14 23:59 | disposition home or self-care (01) ==
PROVIDERS: PCP Internal Medicine; Visit Provider Internal Medicine
DX: D50.9 Iron deficiency anemia, unspecified (principal)
CPT/HCPCS: 96365; J1439; J7050

== ENCOUNTER → 2023-08-19 09:37 | Outpatient (BNVA) | payer MEDICARE, MEDICAID, SELFPAY | PROVIDERS: PCP Internal Medicine; Visit Provider Internal Medicine Pulmonary Disease | DX: K52.9 Noninfective gastroenteritis and colitis, unspecified (principal); J98.09 Other diseases of bronchus, not elsewhere classified; J98.59 Other diseases of mediastinum, not elsewhere classified; J45.909 Unspecified asthma, uncomplicated; R09.82 Postnasal drip | CPT/HCPCS: 99214 ==

== ENCOUNTER 2023-08-30 08:54 | Outpatient (CLI) | payer MEDICARE, MEDICAID, SELFPAY ==
--- NOTE | 2023-08-30 09:00 | CT_ITS ---
WS: [id number] CT CHEST TECHNIQUE: Noncontrast CT of the chest with coronal and sagittal reformatted images. CLINICAL INFORMATION: follow up COMPARISON: CT 11/09/2021 DLP: 587.[address] scans at [facility] use at least one of these dose optimization techniques: automated e xposure control; mA and/or kV adjustment per patient size (includes targeted exams where dose is matc hed to clinical indication); or iterative reconstruction. FINDINGS: Narrowing of the RIGHT distal mainstem and proximal RIGHT upper lobe bronchus similar to pr evious. Improved aeration of the RIGHT upper lobe compared to previous with a tiny amount of residual atelectasis. No acute pulmonary infiltrates. No focal pneumonia or pleural fluid. Normal caliber thoracic aorta. No missile or hilar lymphadenopathy. No axillary lymphadenopathy. Adrenal glands are normal. Cholelithiasis. Postoperative changes involving the stomach. Tiny esophage al hiatal hernia. Splenic granulomas. Mild thoracic curve. CT/CT chest wo con [id number] IMPRESSION: 1. Improved aeration of the RIGHT upper lobe today with a small amount of resi dual atelectasis. 2. Similar-appearing narrowing of the RIGHT distal mainstem and proximal upper lobe bronchus with improved aeration of the more distal RIGHT upper lobe bronc hi. 3. No mediastinal or hilar lymphadenopathy. 4. Cholelithiasis. 5. No other acute findings.
== END 2023-08-30 08:55 | disposition home or self-care (01) ==
LOC: RAD 08:54
PROVIDERS: PCP Internal Medicine; Visit Provider Internal Medicine Pulmonary Disease
DX: J98.09 Other diseases of bronchus, not elsewhere classified (principal); J98.59 Other diseases of mediastinum, not elsewhere classified; K80.20 Calculus of gallbladder without cholecystitis without obstruction; D73.89 Other diseases of spleen; R91.8 Other nonspecific abnormal finding of lung field; J98.11 Atelectasis
CPT/HCPCS: 71250

== ENCOUNTER 2024-02-26 07:15 | Outpatient (CLI) | payer MEDICARE, MEDICAID, SELFPAY ==
--- NOTE | 2024-02-26 07:25 | MR_ITS ---
NOTE: Report was unsigned for reason: Ordering provider was edited. Original Signature date and time was: 02/27/24 @1359 WS: [email or web address] MRI RIGHT SHOULDER NONCONTRAST TECHNIQUE: Somewhat limited exam with fast imaging performed due to patient motion. Coronal PD, coronal T2, sagittal PD and axial T2 imaging. CLINICAL INFORMATION: RIGHT SHOULDER PAIN COMPARISON: MRI 2018 FINDINGS: Susceptibly artifact from rotator cuff anchors degrades some images. Prior postoperative changes rotator cuff repair appears new or revised compared to previous. Moderate is arthritis at the AC joint. Mild narrowing of the subacromial space. Rotator cuff anchors in the humeral head. Rotator cuff repair appears intact. Distal supraspinatus and infraspinatus appear intact. Chronic appearing atrophy of the supraspinatus and infraspinatus muscle bellies. Normal teres minor. Subscapularis tendon appears repaired since the prior examination and appears intact. Small biceps tendon appears intact within the bicipital groove. Advanced degenerative narrowing of the glenohumeral articulation. [facility]MR shoulder RT wo con* [id number] IMPRESSION: Some images limited by patient motion underscore cuff repair. 1. Prior rotator cuff repair appears intact. 2. Chronic atrophy of the supraspinatus and infraspinatus muscle bellies with chronic thinning of the tendons which appear intact. 3. Repair of the subscapularis tendon compared to previous which appears intac t today. 4. Small biceps tendon appears intact within the bicipital groove.
== END 2024-02-26 07:19 | disposition home or self-care (01) ==
PROVIDERS: PCP Internal Medicine; Visit Provider Orthopaedic Surgery
DX: M62.511 Muscle wasting and atrophy, not elsewhere classified, right shoulder (principal); Z98.890 Other specified postprocedural states
CPT/HCPCS: 73221

== ENCOUNTER 2024-04-02 11:15 | Outpatient (CLI) | payer MEDICARE, MEDICAID, SELFPAY ==
--- NOTE | 2024-04-02 11:24 | XR_ITS ---
WS: [id number] Left foot, 3 views, 04/02/2024 Clinical Data: PAIN IN LEFT FOOT Comparison: Left foot, 11/05/2022 Findings: There is a fracture of the distal left fifth metatarsal which is new. The transverse fracture through the base of the left fifth metatarsal is still visible but healing segura s occurred. The remainder of the foot shows no change. The joint spaces and soft tissues are unremarkable. XR/XR foot LT min 3V* [id number] Impression: 1. New fracture of distal left fifth metatarsal. 2. Healed fracture of proximal left fifth metatarsal.
== END 2024-04-02 11:16 | disposition home or self-care (01) ==
LOC: RAD 11:19
PROVIDERS: PCP Internal Medicine; Visit Provider Internal Medicine
DX: S92.352A Displaced fracture of fifth metatarsal bone, left foot, initial encounter for closed fracture (principal); S92.352D Displaced fracture of fifth metatarsal bone, left foot, subsequent encounter for fracture with routine healing; X58.XXXA Exposure to other specified factors, initial encounter
CPT/HCPCS: 73630

== ENCOUNTER → 2024-04-14 11:52 | Outpatient (BNVA) | payer MEDICARE, MEDICAID, SELFPAY | PROVIDERS: PCP Internal Medicine; Visit Provider Podiatrist Foot & Ankle Surgery | DX: S92.352A Displaced fracture of fifth metatarsal bone, left foot, initial encounter for closed fracture (principal); X58.XXXA Exposure to other specified factors, initial encounter; M79.672 Pain in left foot | CPT/HCPCS: 73630; 99213 ==

== ENCOUNTER → 2024-05-05 08:02 | Outpatient (BNVA) | payer MEDICARE, MEDICAID, SELFPAY | PROVIDERS: PCP Internal Medicine; Visit Provider Thoracic Surgery (Cardiothoracic Vascular Surgery) | DX: I96 Gangrene, not elsewhere classified (principal); L98.491 Non-pressure chronic ulcer of skin of other sites limited to breakdown of skin | CPT/HCPCS: 97597; 99203; A6219 ==

== ENCOUNTER 2024-05-12 11:06 | Outpatient (CLI) | payer MEDICARE, MEDICAID, SELFPAY ==
--- NOTE | 2024-05-12 11:26 | MM_ITS ---
WS: [id number] VIEWS: MLO and CC views both breasts. 3D digital tomosynthesis is also included in this exam. Comparison made with prior exam of 06/21/2008, 07/19/2009, 08/17/2010, 05/27/2012, 08/27/2013, 09/23/2014, 10/14, 11/26/2016, 10/27/2018, 07/07/2007, 02/18/2021, 12/07/2021, 02/25/2023.. Findings: There are scattered areas of fibroglandular density. No sign of suspicious mass, tumor calcification or architectural distortion. MM/MM scr BI tomosynthesis [id number] Impression: BI-RADS: 2 - Benign. FOLLOW-UP: 1 Year Follow-up This mammogram was also analyzed by the Computer Aided Detection System [employer].
== END 2024-05-12 11:07 | disposition home or self-care (01) ==
LOC: RAD 11:06
PROVIDERS: PCP Internal Medicine; Visit Provider Internal Medicine
DX: Z12.31 Encounter for screening mammogram for malignant neoplasm of breast (principal); R92.323 Mammographic fibroglandular density, bilateral breasts; I96 Gangrene, not elsewhere classified; L98.491 Non-pressure chronic ulcer of skin of other sites limited to breakdown of skin
CPT/HCPCS: 77063; 77067; 97597; A6212

== ENCOUNTER → 2024-12-18 10:00 | Outpatient (BNVA) | payer MEDICARE, MEDICAID, SELFPAY | PROVIDERS: PCP Internal Medicine; Visit Provider Dermatology | DX: L30.4 Erythema intertrigo (principal); I87.2 Venous insufficiency (chronic) (peripheral); L57.8 Other skin changes due to chronic exposure to nonionizing radiation; L82.1 Other seborrheic keratosis; L82.0 Inflamed seborrheic keratosis; Z78.9 Other specified health status; R20.8 Other disturbances of skin sensation; L29.89 Other pruritus; R58 Hemorrhage, not elsewhere classified | CPT/HCPCS: 17110; 99204 ==

== ENCOUNTER → 2025-02-05 11:23 | Outpatient (BNVA) | payer MEDICARE, MEDICAID, SELFPAY | PROVIDERS: PCP Internal Medicine; Visit Provider Dermatology | DX: L30.4 Erythema intertrigo (principal); I87.2 Venous insufficiency (chronic) (peripheral) | CPT/HCPCS: 99213 ==